=== PATIENT | male | born 1970 | race Caucasian/White ===

== ENCOUNTER 2017-07-10 16:42 | Emergency (ER) | payer OTHER ==
[2017-07-10] MEDS ORDERED: ORPHENADRINE 30 MG/ML 2 ML VIAL IM STA (17:24)
[2017-07-10] MEDS ORDERED: LORazepam 1 MG TAB PO STA (17:24)
[2017-07-10] MEDS ORDERED: KETOROLAC 60 MG/2 ML VIAL IM STA (17:24)
--- NOTE | 2017-07-10 17:27 | ED ---
Back Pain HPI - General Chief Complaint: Back Pain/Injury Stated Complaint: Back Pain Time Seen by Provider: 07/10/17 17:07 Source: patient, EMS, RN notes reviewed, old records reviewed Limitations: no limitations - History of Present Illness Initial Comments: This Patient is a 46-year-old male chief complaint of mid to lower back pain onset after he twisted. He reports he has a history of chronic back issues after a weightlifting injury many years ago. He reports that the twisting motion he did today reaggravated his back pain. Patient states that he has not taken anything for pain. He did arrive here via EMS. They were unable to establish an IV line due to poor vascular access. Patient reports no saddle anesthesias. Reports the pain radiates down both legs. He states that he has had no dysuria or hematuria prior to this. He denies any abdominal pain. He is concerned because it feels like his muscles are spasming. - Related Data Home Medications Medication Instructions Recorded Confirmed Aspirin/Acetaminophen/Caffeine 2 tab PO Q6H PRN 07/10/17 07/10/17 [Excedrin Extra Strength Caplet] QUEtiapine [SEROquel] 100 mg PO BID 07/10/17 07/10/17 Previous Rx's Medication Instructions Recorded Acetaminophen with Codeine 1 tab PO Q6H PRN 3 Days #12 tab 07/10/17 [Tylenol w/codeine #3] Cyclobenzaprine [Flexeril] 10 mg PO TID #20 tab 07/10/17 Ibuprofen [Motrin] 600 mg PO Q6HR PRN #20 tab 07/10/17 Allergies Allergy/AdvReac Type Severity Reaction Status Date / Time No Known Allergies Allergy Verified 07/10/17 17:30 Review of Systems ROS Statement: Those systems with pertinent positive or pertinent negative responses have been documented in the HPI. ROS Other: All systems not noted in ROS Statement are negative. Past Medical History Past Medical History: COPD Additional Past Medical History / Comment(s): facial reconstruction chronic back pain History of Any Multi-Drug Resistant Organisms: MRSA Date of last positivie culture/infection: 2013 MDRO Source:: knee Past Surgical History: Orthopedic Surgery Additional Past Surgical History / Comment(s): facial reconstruction; right knee Past Anesthesia/Blood Transfusion Reactions: No Reported Reaction Past Psychological History: Anxiety, Bipolar Smoking Status: Current every day smoker Past Alcohol Use History: None Reported Past Drug Use History: Cocaine, Heroin, Marijuana, Opiates, Prescription Drug Abuse General Exam - General Exam Comments Initial Comments: 46-year-old male. Alert and oriented. Patient is writhing around the exam table. Limitations: no limitations General appearance: alert, in no apparent distress Head exam: Present: atraumatic, normocephalic, normal inspection Eye exam: Present: normal appearance, PERRL, EOMI. Absent: scleral icterus, conjunctival injection, periorbital swelling ENT exam: Present: normal exam, mucous membranes moist Neck exam: Present: normal inspection. Absent: tenderness, meningismus, lymphadenopathy Respiratory exam: Present: normal lung sounds bilaterally. Absent: respiratory distress, wheezes, rales, rhonchi, stridor Cardiovascular Exam: Present: regular rate, normal rhythm, normal heart sounds. Absent: systolic murmur, diastolic murmur, rubs, gallop, clicks GI/Abdominal exam: Present: soft, normal bowel sounds. Absent: distended, tenderness, guarding, rebound, rigid Extremities exam: Present: normal inspection, full ROM, normal capillary refill. Absent: tenderness, pedal edema, joint swelling, calf tenderness Back exam: Present: normal inspection, tenderness, paraspinal tenderness, vertebral tenderness (Lumbar and lower thoracic vertebral tenderness.), other ( Lumbar paraspinal tenderness.) Neurological exam: Present: alert, oriented X3, CN II-XII intact Psychiatric exam: Present: normal affect, normal mood Skin exam: Present: warm, dry, intact, normal color. Absent: rash Course Vital Signs 07/10/17 16:53 Temperature 97.9 F Pulse Rate 88 Respiratory 16 Rate Blood Pressure 117/83 O2 Sat by Pulse 98 Oximetry Medical Decision Making - Medical Decision Making 46-year-old male complaining of back pain after twisting. Complains of spasms. Did complain at one point in his rectum to examine. It is difficult to establish IV. He was given IM injections and had some relief. X-rays were refused at that time. I did complete a CT on pelvis without contrast CT did have some blood in his urine. Negative for any kidney stones. There is evidence of degenerative disc disease in the back. We'll discharge the Patient with a temperature medication and muscle relaxers. Discussed appropriate follow -up. - Lab Data Lab Results 07/10/17 Range/Units 20:00 Urine Color Yellow Urine Appearance Cloudy (Clear) Urine pH 6.0 (5.0-8.0) Ur Specific [place] 1.020 (1.001-1.035) Urine Protein 1+ H (Negative) Urine Glucose (UA) Negative (Negative) Urine Ketones Negative (Negative) Urine Blood Small H (Negative) Urine Nitrite Negative (Negative) Urine Bilirubin Negative (Negative) Urine Urobilinogen <2.0 (<2.0) mg/dL Ur Leukocyte Esterase Negative (Negative) Urine RBC 16 H (0-5) /hpf Urine WBC 3 (0-5) /hpf Ur Squamous Epith Cells 5 H (0-4) /hpf Urine Bacteria Rare H (None) /hpf Hyaline Casts 27 H (0-2) /lpf Urine Mucus Many H (None) /hpf Urine Sperm Occasional H (None) /hpf Urine Opiates Screen Detected H (NotDetected) Ur Oxycodone Screen Not Detected (NotDetected) Urine Methadone Screen Not Detected (NotDetected) Ur Propoxyphene Screen Not Detected (NotDetected) Ur Barbiturates Screen Not Detected (NotDetected) U Tricyclic Antidepress Not Detected (NotDetected) Ur Phencyclidine Scrn Not Detected (NotDetected) Ur Amphetamines Screen Detected H (NotDetected) U Methamphetamines Scrn Detected H (NotDetected) U Benzodiazepines Scrn Not Detected (NotDetected) Urine Cocaine Screen Not Detected (NotDetected) U Marijuana (THC) Screen Not Detected (NotDetected) - Radiology Data Radiology results: report reviewed CT Pelvis without Contrast Negative for Any Acute Process. No focal skeletal findings and the mid lower lumbar spine and prior studies. Specifically her tinnitus narrowing at L3-L4 L4-L5. Hyper sclerosis at L4-L5 vertebral bodies. Changes are similar to prior study. No other muscle skeletal findings. Disposition Clinical Impression: Hematuria, Back pain, DDD (degenerative disc disease) Disposition: HOME SELF-CARE Condition: Good Instructions: Acute Low Back Pain (ED) Additional Instructions: Patient has follow-up with primary care provider. Return to emergency department if any alarming signs or symptoms occur. Prescriptions: Acetaminophen with Codeine [Tylenol w/codeine #3] 1 tab PO Q6H PRN 3 Days #12 tab PRN Reason: Pain Cyclobenzaprine [Flexeril] 10 mg PO TID #20 tab Ibuprofen [Motrin] 600 mg PO Q6HR PRN #20 tab PRN Reason: Pain Is patient prescribed a controlled substance at d/c from ED?: Yes When asked, does pt state using other controlled substances?: No If prescribed controlled substance>3 days was MAPS reviewed?: Prescribed <3 Days If opioid is for acute pain is fill amount 7 days or less?: No If Rx opioid, was Start Talking consent form obtained?: No Referrals: None,Stated [Primary Care Provider] - 1-2 days Tawana Crooks MD [REFERRING] - 1-2 days Time of Disposition: 21:11
[2017-07-10] MEDS ORDERED: HYDROcodone/APAP 5-325MG 1 EACH TAB PO STA (18:26)
--- NOTE | 2017-07-10 20:17 | CT ---
EXAMINATION TYPE: CT ChestAbdPelvis wo con DATE OF EXAM: 07/10/2017 COMPARISON: 09/01/2015 HISTORY: Back pain today. Attention thoracic and lumbar spine. CT DLP: 428.5 mGycm. Automated Exposure Control for Dose Reduction was Utilized. TECHNIQUE: CT scan of the thorax, abdomen and pelvis is performed without IV contrast. FINDINGS: LUNGS: The lungs are grossly clear, there is no concerning parenchymal mass or nodule identified. T here is no pleural effusion or pneumothorax seen. The tracheobronchial tree is patent. MEDIASTINUM: There are no greater than 1 cm hilar or mediastinal lymph nodes. No pericardial effusi on is seen. OTHER: No additional significant abnormality is seen. LIVER/GB: No significant abnormality is appreciated. PANCREAS: No significant abnormality is seen. SPLEEN: No significant abnormality is seen. ADRENALS: No significant abnormality is seen. KIDNEYS: No significant abnormality is seen. BOWEL: No significant abnormality is seen. GENITAL ORGANS: No gross abnormality seen. LYMPH NODES: No greater than 1cm abdominal or pelvic lymph nodes are appreciated. OSSEOUS STRUCTURES: There is no fracture or malalignment. No focal skeletal findings, other than the mid/lower lumbar spine seen on the prior studies. Specifically, there is degenerative disc space narr owing at L3-4 and L4-5 to a prominent degree with hypersclerosis of the L4 and L5 vertebral bodies on either side of the intervertebral disc, but these changes are similar to the prior study. There are no other musculoskeletal findings. OTHER: No significant additional abnormality is seen. IMPRESSION: NO ACUTE PROCESS, CT HEAD WITHOUT CONTRAST.
[2017-07-10 20:27] LABS: Appearance,Urine Cloudy (Clear); Bacteria,Urine Rare /hpf; Bilirubin,Urine Negative (Negative); Blood,Urine Small (Negative); Color,Urine Yellow; Glucose,Urine (UA) Negative (Negative); Hyaline Casts,Urine 27 /lpf (0-2); Ketones,Urine Negative (Negative); Leukocyte Esterase,Urine Negative (Negative); Mucus,Urine Many /hpf; Nitrite,Urine Negative (Negative); Protein,Urine 1+ (Negative); RBC,Urine 16 /hpf (0-5); Sperm,Urine Occasional /hpf; Squamous Epithelial Cell,Urine 5 /hpf (0-4); Urobilinogen,Urine <2.0 mg/dL (<2.0); WBC,Urine 3 /hpf (0-5)
[2017-07-10 20:47] LABS: Amphetamine Screen,Urine Detected (NotDetected); Barbiturate Screen,Urine Not Detected (NotDetected); Benzodiazepines Screen,Urine Not Detected (NotDetected); Cocaine Screen,Urine Not Detected (NotDetected); Methadone Screen, Urine Not Detected (NotDetected); Opiate Screen,Urine Detected (NotDetected); Oxycodone Screen, Urine Not Detected (NotDetected); Phencyclidine Screen,Urine Not Detected (NotDetected); Tricyclic Antidepressant,Urine Not Detected (NotDetected); Urn Cannabinoid Scrn Not Detected (NotDetected)
[2017-07-10 22:21] VITALS: BP 155/56; PULSE 71; RESP 20; TEMP 98.9
== END 2017-07-10 22:00 | disposition home or self-care (01) ==
LOC: EC 16:42
DX: M51.36 Other intervertebral disc degeneration, lumbar region (principal); R31.9 Hematuria, unspecified; F41.9 Anxiety disorder, unspecified; F31.9 Bipolar disorder, unspecified; F17.200 Nicotine dependence, unspecified, uncomplicated; Z86.14 Personal history of Methicillin resistant Staphylococcus aureus infection; Z79.899 Other long term (current) drug therapy; X50.1XXA Overexertion from prolonged static or awkward postures, initial encounter; Y92.009 Unspecified place in unspecified non-institutional (private) residence as the place of occurrence of the external cause; Y93.89 Activity, other specified
CPT/HCPCS: 81001; 80306; 71250; 74176; 99285; 96372 ×2; J2360; J1885

== ENCOUNTER 2017-07-19 02:54 | Inpatient (IN) | payer OTHER ==
[2017-07-19] MEDS ORDERED: LIDOCAINE URO-JET JELLY 2% 5 ML KIT URETHRAL ONE (03:24)
[2017-07-19 03:38] LABS: ALT 36 U/L (21-72); AST 44 U/L (17-59); Alkaline Phosphatase 453 U/L (38-126); Amylase 36 U/L (30-110); Anion Gap 17 mmol/L; Blood Urea Nitrogen 21 mg/dL (9-20); Calcium 8.1 mg/dL (8.4-10.2); Carbon Dioxide 21 mmol/L (22-30); Chloride 94 mmol/L (98-107); Glucose 118 mg/dL (74-99); Lipase 14 U/L (23-300); Potassium 4.2 mmol/L (3.5-5.1); Sodium 132 mmol/L (137-145); Total Bilirubin 1.9 mg/dL (0.2-1.3); Total Protein 6.5 g/dL (6.3-8.2)
[2017-07-19 03:49] LABS: HCT 35.7 % (39.0-53.0); HGB 11.7 gm/dL (13.0-17.5); MCH 27.3 pg (25.0-35.0); MCHC 32.9 g/dL (31.0-37.0); Mean Platelet Volume 7.9; Platelet Count 357 k/uL (150-450); RDW 15.1 % (11.5-15.5)
[2017-07-19 04:12] LABS: Appearance,Urine Cloudy (Clear); Bacteria,Urine Few /hpf; Bilirubin,Urine Negative (Negative); Blood,Urine Small (Negative); Color,Urine Yellow; Glucose,Urine (UA) Negative (Negative); Ketones,Urine Negative (Negative); Leukocyte Esterase,Urine Large (Negative); Mucus,Urine Rare /hpf; Nitrite,Urine Positive (Negative); PH, Urine 7.5 (5.0-8.0); Protein,Urine 1+ (Negative); RBC,Urine 4 /hpf (0-5); Specific Gravity,Urine 1.009 (1.001-1.035); WBC,Urine >182 /hpf (0-5)
[2017-07-19] MEDS ORDERED: PIPERACILLIN-TAZOBACTAM 3.375 GM in DEXTROSE/WATER 1 50ML.BAG IVPB STA (04:15)
[2017-07-19] MEDS ORDERED: LEVOFLOXACIN 750MG-D5W PMX 750 MG in DEXTROSE/WATER 1 150ML.BAG IVPB STA (04:15)
[2017-07-19] MEDS ORDERED: SODIUM CHLORIDE 0.9% 3,000 ML IV ONE (04:15)
[2017-07-19] MEDS ORDERED: VANCOMYCIN IV PER PHARMACY 1 EACH MISC MISCELLANE PRN (04:15)
[2017-07-19] MEDS ORDERED: CYCLOBENZAPRINE 10 MG TAB PO STA (04:19)
[2017-07-19] MEDS ORDERED: VANCOMYCIN 1,500 MG in SODIUM CHLORIDE 0.9% 250 ML IVPB STA (04:19)
[2017-07-19 04:40] LABS: WBC 31.8 k/uL (3.8-10.6)
[2017-07-19 04:51] LABS: Myelocytes # (M) 0.32 k/uL (0); Myelocytes % 1 %; Nucleated Red Blood Cells 0 /100 WBC (0-0); Total Cells Counted 200
[2017-07-19 04:52] LABS: Anisocytosis (M) Present; Polychromasia Present
[2017-07-19 04:53] LABS: Large Platelets Present
[2017-07-19 04:55] LABS: Toxic Vacuolation Present
[2017-07-19 04:57] LABS: Blast Cells # (M) 0.32 k/uL (0)
[2017-07-19] MEDS ORDERED: LORazepam 2 MG/ML INJ IV STA (04:57)
[2017-07-19] MEDS ORDERED: MORPHINE SULFATE 2 MG/ML SYRINGE IV STA ×3 (04:57→06:12)
[2017-07-19 05:51] LABS: Amphetamine Screen,Urine Not Detected (NotDetected); Barbiturate Screen,Urine Not Detected (NotDetected); Benzodiazepines Screen,Urine Not Detected (NotDetected); Cocaine Screen,Urine Not Detected (NotDetected); Methadone Screen, Urine Not Detected (NotDetected); Opiate Screen,Urine Not Detected (NotDetected); Oxycodone Screen, Urine Not Detected (NotDetected); Phencyclidine Screen,Urine Not Detected (NotDetected); Tricyclic Antidepressant,Urine Detected (NotDetected); Urn Cannabinoid Scrn Not Detected (NotDetected)
--- NOTE | 2017-07-19 06:09 | ED ---
Abdominal Pain HPI - General Chief Complaint: Abdominal Pain Stated Complaint: urine retention Time Seen by Provider: 07/19/17 02:58 Source: patient Mode of arrival: EMS Limitations: no limitations - History of Present Illness Initial Comments: This patient is a 46-year-old man who presents to be evaluated for suprapubic pain and a feeling that he has to urinate but he is not able pass urine. Patient states that the last time he was able urinate was a bit over 9 hours ago. Shortly after that he started feeling the discomfort and now pain in the suprapubic area. He denies history of previous urinary retention. He does not have any known prostate disease. Patient states that the last time he was able urinate prior to this beginning, he thought that he was seeing a bit of blood there. MD Complaint: abdominal pain Onset/Timin -: hour(s) Location: suprapubic Radiation: none Migration to: no migration Severity: severe Quality: aching, fullness Consistency: constant Improves With: nothing Worsens With: nothing Associated Symptoms: nausea - Related Data Home Medications Medication Instructions Recorded Confirmed Aspirin/Acetaminophen/Caffeine 2 tab PO Q6H PRN 07/10/17 07/19/17 [Excedrin Extra Strength Caplet] QUEtiapine [SEROquel] 100 mg PO BID 07/10/17 07/19/17 Previous Rx's Medication Instructions Recorded Acetaminophen with Codeine 1 tab PO Q6H PRN 3 Days #12 tab 07/10/17 [Tylenol w/codeine #3] Cyclobenzaprine [Flexeril] 10 mg PO TID #20 tab 07/10/17 Ibuprofen [Motrin] 600 mg PO Q6HR PRN #20 tab 07/10/17 Allergies Allergy/AdvReac Type Severity Reaction Status Date / Time No Known Allergies Allergy Verified 07/10/17 17:30 Review of Systems ROS Statement: Those systems with pertinent positive or pertinent negative responses have been documented in the HPI. ROS Other: All systems not noted in ROS Statement are negative. Constitutional: Reports: fever Respiratory: Denies: cough, dyspnea Cardiovascular: Reports: palpitations. Denies: chest pain, edema Gastrointestinal: Reports: as per HPI, abdominal pain, nausea. Denies: vomiting , diarrhea, constipation Genitourinary: Reports: hematuria, other (Urinary retention) Musculoskeletal: Reports: back pain Skin: Reports: rash Neurological: Denies: headache, weakness, numbness Psychiatric: Reports: anxiety Past Medical History Past Medical History: COPD Additional Past Medical History / Comment(s): facial reconstruction chronic back pain History of Any Multi-Drug Resistant Organisms: MRSA Date of last positivie culture/infection: 2013 MDRO Source:: knee Past Surgical History: Orthopedic Surgery Additional Past Surgical History / Comment(s): facial reconstruction; right knee Past Anesthesia/Blood Transfusion Reactions: No Reported Reaction Past Psychological History: Anxiety, Bipolar Smoking Status: Current every day smoker Past Alcohol Use History: None Reported Past Drug Use History: Cocaine, Heroin, Marijuana, Opiates, Prescription Drug Abuse General Exam Limitations: no limitations General appearance: alert, in distress Head exam: Present: atraumatic, normocephalic Eye exam: Present: normal appearance. Absent: scleral icterus, conjunctival injection ENT exam: Present: mucous membranes dry Neck exam: Present: normal inspection, full ROM Respiratory exam: Present: normal lung sounds bilaterally. Absent: respiratory distress, wheezes, rales, rhonchi, stridor Cardiovascular Exam: Present: normal rhythm, tachycardia, normal heart sounds. Absent: systolic murmur, diastolic murmur, rubs, gallop GI/Abdominal exam: Present: soft, tenderness, guarding, mass, other (The patient has tenderness and guarding over the suprapubic area as well as some fullness consistent with urinary retention.). Absent: distended, rebound, rigid , normal bowel sounds Extremities exam: Present: normal inspection, normal capillary refill. Absent: pedal edema, calf tenderness Neurological exam: Present: alert, oriented X3 Skin exam: Present: warm, dry, intact, erythema (There is some erythema to the left antecubital fossa which is concerning for cellulitis.). Absent: rash Course Vital Signs 07/19/17 02:55 Temperature 100.6 F H Pulse Rate 115 H Respiratory 20 Rate Blood Pressure 136/74 Medical Decision Making - Lab Data Result diagrams: 07/19/17 03:04 07/19/17 03:04 Lab Results 07/19/17 07/19/17 07/19/17 Range/Units 03:04 03:04 03:04 WBC 31.8 H* (3.8-10.6) k/uL RBC 4.30 (4.30-5.90) m/uL Hgb 11.7 L (13.0-17.5) gm/dL Hct 35.7 L (39.0-53.0) % MCV 83.0 (80.0-100.0) fL MCH 27.3 (25.0-35.0) pg MCHC 32.9 (31.0-37.0) g/dL RDW 15.1 (11.5-15.5) % Plt Count 357 (150-450) k/uL Sodium 132 L (137-145) mmol/L Potassium 4.2 (3.5-5.1) mmol/L Chloride 94 L (98-107) mmol/L Carbon Dioxide 21 L (22-30) mmol/L Anion Gap 17 mmol/L BUN 21 H (9-20) mg/dL Creatinine 1.06 (0.66-1.25) mg/dL Est GFR (CKD-EPI)AfAm >90 (>60 ml/min/1.73 sqM) Est GFR (CKD-EPI)NonAf 86 (>60 ml/min/1.73 sqM) Glucose 118 H (74-99) mg/dL Plasma Lactic Acid Brian 2.2 H* (0.7-2.0) mmol/L Calcium 8.1 L (8.4-10.2) mg/dL Total Bilirubin 1.9 H (0.2-1.3) mg/dL AST 44 (17-59) U/L ALT 36 (21-72) U/L Alkaline Phosphatase 453 H (38-126) U/L Total Protein 6.5 (6.3-8.2) g/dL Albumin 3.0 L (3.5-5.0) g/dL Amylase 36 (30-110) U/L Lipase 14 L (23-300) U/L Urine Color Urine Appearance (Clear) Urine pH (5.0-8.0) Ur Specific [place] (1.001-1.035) Urine Protein (Negative) Urine Glucose (UA) (Negative) Urine Ketones (Negative) Urine Blood (Negative) Urine Nitrite (Negative) Urine Bilirubin (Negative) Urine Urobilinogen (<2.0) mg/dL Ur Leukocyte Esterase (Negative) Urine RBC (0-5) /hpf Urine WBC (0-5) /hpf Urine WBC Clumps (None) /hpf Urine Bacteria (None) /hpf Urine Mucus (None) /hpf Urine Opiates Screen (NotDetected) Ur Oxycodone Screen (NotDetected) Urine Methadone Screen (NotDetected) Ur Propoxyphene Screen (NotDetected) Ur Barbiturates Screen (NotDetected) U Tricyclic Antidepress (NotDetected) Ur Phencyclidine Scrn (NotDetected) Ur Amphetamines Screen (NotDetected) U Methamphetamines Scrn (NotDetected) U Benzodiazepines Scrn (NotDetected) Urine Cocaine Screen (NotDetected) U Marijuana (THC) Screen (NotDetected) 07/19/17 07/19/17 Range/Units 03:37 03:37 WBC (3.8-10.6) k/uL RBC (4.30-5.90) m/uL Hgb (13.0-17.5) gm/dL Hct (39.0-53.0) % MCV (80.0-100.0) fL MCH (25.0-35.0) pg MCHC (31.0-37.0) g/dL RDW (11.5-15.5) % Plt Count (150-450) k/uL Sodium (137-145) mmol/L Potassium (3.5-5.1) mmol/L Chloride (98-107) mmol/L Carbon Dioxide (22-30) mmol/L Anion Gap mmol/L BUN (9-20) mg/dL Creatinine (0.66-1.25) mg/dL Est GFR (CKD-EPI)AfAm (>60 ml/min/1.73 sqM) Est GFR (CKD-EPI)NonAf (>60 ml/min/1.73 sqM) Glucose (74-99) mg/dL Plasma Lactic Acid Brian (0.7-2.0) mmol/L Calcium (8.4-10.2) mg/dL Total Bilirubin (0.2-1.3) mg/dL AST (17-59) U/L ALT (21-72) U/L Alkaline Phosphatase (38-126) U/L Total Protein (6.3-8.2) g/dL Albumin (3.5-5.0) g/dL Amylase (30-110) U/L Lipase (23-300) U/L Urine Color Yellow Urine Appearance Cloudy (Clear) Urine pH 7.5 (5.0-8.0) Ur Specific [place] 1.009 (1.001-1.035) Urine Protein 1+ H (Negative) Urine Glucose (UA) Negative (Negative) Urine Ketones Negative (Negative) Urine Blood Small H (Negative) Urine Nitrite Positive (Negative) Urine Bilirubin Negative (Negative) Urine Urobilinogen 4.0 (<2.0) mg/dL Ur Leukocyte Esterase Large H (Negative) Urine RBC 4 (0-5) /hpf Urine WBC >182 H (0-5) /hpf Urine WBC Clumps Many H (None) /hpf Urine Bacteria Few H (None) /hpf Urine Mucus Rare H (None) /hpf Urine Opiates Screen Not Detected (NotDetected) Ur Oxycodone Screen Not Detected (NotDetected) Urine Methadone Screen Not Detected (NotDetected) Ur Propoxyphene Screen Not Detected (NotDetected) Ur Barbiturates Screen Not Detected (NotDetected) U Tricyclic Antidepress Detected H (NotDetected) Ur Phencyclidine Scrn Not Detected (NotDetected) Ur Amphetamines Screen Not Detected (NotDetected) U Methamphetamines Scrn Not Detected (NotDetected) U Benzodiazepines Scrn Not Detected (NotDetected) Urine Cocaine Screen Not Detected (NotDetected) U Marijuana (THC) Screen Not Detected (NotDetected) - EKG Data -: EKG Interpreted by [facility] EKG shows normal: sinus rhythm, axis (Normal), intervals (Normal), QRS complexes (Normal), ST-T waves (Normal) Rate: tachycardia (Rate approximately 108 bpm) Disposition Clinical Impression: Acute urinary retention, Urinary tract infection, Sepsis, Leukocytosis, Cellulitis Disposition: ADMITTED IP TO THIS HOSP Condition: Serious Is patient prescribed a controlled substance at d/c from ED?: No Referrals: None,Stated [Primary Care Provider] - 1-2 days
--- NOTE | 2017-07-19 06:44 | P.HPIM ---
History of Present Illness H&P Date: 07/19/17 Chief Complaint: lower back pain, urinary retention The patient is a 46-year-old male with a past medical history of borderline personality disorder schizoaffective disorder, IV drug use who presents to the ER with chief complaint of severe lower back pain reporting that he feels like his spasming all over. The patient has been unable to urinate and has had dysuria and hematuria in the last 24 hours. The patient reports to being febrile at home over the last 2 days with a reported temperature, 102.1. He is also complaining of generalized 6 out of 10 abdominal pain radiating to his back with nausea and 2 episodes of vomiting this earlier today. Apparently the patient was seen here approximately 9 days ago where he presented with similar symptoms, at that time he had a CT of the chest abdomen pelvis that showed no acute findings, he was then started on Flexeril and Tylenol threes and sent home. On presentation here was apparently given morphine for his pain which helped. The patient also reports that he's followed at home and hit his shoulder also reports that his mom stepped on his left ankle. In the ED had a comprehensive workup, remarkable for pronounced leukocytosis of 31.8, hyponatremia at 132, elevated plasma lactic acid at 2.2, total bilirubin of 1.9, urinalysis suggestive of a UTI. He was noted to be tachycardic and febrile in the ER and was started on empiric IV antibiotics and given IV fluids per sepsis protocol. He was recommended for admission for sepsis. Review of Systems All other 12 point review of systems negative except per HPI Past Medical History Past Medical History: COPD Additional Past Medical History / Comment(s): facial reconstruction chronic back pain History of Any Multi-Drug Resistant Organisms: MRSA Date of last positivie culture/infection: 2013 MDRO Source:: knee Past Surgical History: Orthopedic Surgery Additional Past Surgical History / Comment(s): facial reconstruction; right knee Past Anesthesia/Blood Transfusion Reactions: No Reported Reaction Past Psychological History: Anxiety, Bipolar Smoking Status: Current every day smoker Past Alcohol Use History: None Reported Past Drug Use History: Cocaine, Heroin, Marijuana, Opiates, Prescription Drug Abuse Medications and Allergies Home Medications Medication Instructions Recorded Confirmed Type Acetaminophen with Codeine 1 tab PO Q6H PRN 3 Days #12 tab 07/10/17 07/19/17 Rx [Tylenol w/codeine #3] Aspirin/Acetaminophen/Caffeine 2 tab PO Q6H PRN 07/10/17 07/19/17 History [Excedrin Extra Strength Caplet] Cyclobenzaprine [Flexeril] 10 mg PO TID #20 tab 07/10/17 07/19/17 Rx Ibuprofen [Motrin] 600 mg PO Q6HR PRN #20 tab 07/10/17 07/19/17 Rx QUEtiapine [SEROquel] 100 mg PO BID 07/10/17 07/19/17 History Allergies Allergy/AdvReac Type Severity Reaction Status Date / Time No Known Allergies Allergy Verified 07/10/17 17:30 Physical Exam Vitals: Vital Signs Temp Pulse Resp BP 07/19/17 02:55 100.6 F H 115 H 20 136/74 Intake and Output 07/18/17 07/18/17 07/19/17 14:59 22:59 06:59 Output Total 750 Balance -750 Output: Urine 750 Uretheral (Pederson) 750 Other: Voiding Method Toilet Weight 83.915 kg Constitutional: No acute distress, anxious, unkempt Eyes: Anicteric sclerae, moist conjunctiva, no lid-lag, PERRLA ENMT: NC/AT,Oropharynx clear, no erythema, exudates Neck:Supple, FROM, no masses, or JVD, No carotid bruits; No thyromegaly Lungs: Clear to auscultation, Clear to percussion, Normal respiratory effort, no accessory muscle use Cardiovascular: Heart regular in rate and rhythm, No murmurs, gallops, or rubs no peripheral edema Abdominal: Soft Nontender, nom distended, no guarding, no rebound or rigidity, Normoactive bowel sounds No hepatomegaly, No splenomegaly, No palpable mass No abdominal wall hernia noted Skin: Normal temperature, tone, texture, turgor, No induration No subcutaneous nodules, No rash, lesions, No ulcers Extremities:No digital cyanosis No clubbing, Pedal pulses intact and symmetrical Radial pulses intact and symmetrical Normal gait and station, No calf tenderness, swollen right ankle Psychiatric: Alert and oriented to person, place and time, Appropriate affect Intact judgement Neuro: Muscles Strength 5/5 in all 4 extremities, Sensation to light touch grossly present throughout, Cranial nerves II-XII grossly intact. No focal sensory deficits Results CBC & Chem 7: 07/19/17 03:04 07/19/17 03:04 Labs: Abnormal Lab Results - Last 24 Hours (Table) 07/19/17 07/19/17 07/19/17 Range/Units 03:04 03:04 03:04 WBC 31.8 H* (3.8-10.6) k/uL Hgb 11.7 L (13.0-17.5) gm/dL Hct 35.7 L (39.0-53.0) % Sodium 132 L (137-145) mmol/L Chloride 94 L (98-107) mmol/L Carbon Dioxide 21 L (22-30) mmol/L BUN 21 H (9-20) mg/dL Glucose 118 H (74-99) mg/dL Plasma Lactic Acid Brian 2.2 H* (0.7-2.0) mmol/L Calcium 8.1 L (8.4-10.2) mg/dL Total Bilirubin 1.9 H (0.2-1.3) mg/dL Alkaline Phosphatase 453 H (38-126) U/L Albumin 3.0 L (3.5-5.0) g/dL Lipase 14 L (23-300) U/L Urine Protein (Negative) Urine Blood (Negative) Ur Leukocyte Esterase (Negative) Urine WBC (0-5) /hpf Urine WBC Clumps (None) /hpf Urine Bacteria (None) /hpf Urine Mucus (None) /hpf U Tricyclic Antidepress (NotDetected) 07/19/17 07/19/17 Range/Units 03:37 03:37 WBC (3.8-10.6) k/uL Hgb (13.0-17.5) gm/dL Hct (39.0-53.0) % Sodium (137-145) mmol/L Chloride (98-107) mmol/L Carbon Dioxide (22-30) mmol/L BUN (9-20) mg/dL Glucose (74-99) mg/dL Plasma Lactic Acid Brian (0.7-2.0) mmol/L Calcium (8.4-10.2) mg/dL Total Bilirubin (0.2-1.3) mg/dL Alkaline Phosphatase (38-126) U/L Albumin (3.5-5.0) g/dL Lipase (23-300) U/L Urine Protein 1+ H (Negative) Urine Blood Small H (Negative) Ur Leukocyte Esterase Large H (Negative) Urine WBC >182 H (0-5) /hpf Urine WBC Clumps Many H (None) /hpf Urine Bacteria Few H (None) /hpf Urine Mucus Rare H (None) /hpf U Tricyclic Antidepress Detected H (NotDetected) Assessment and Plan (1) Sepsis Current Visit: Yes Status: Acute Code(s): A41.9 - SEPSIS, UNSPECIFIED ORGANISM SNOMED Code(s): 81781104 (2) Urinary tract infection Current Visit: Yes Status: Acute Code(s): N39.0 - URINARY TRACT INFECTION, SITE NOT SPECIFIED SNOMED Code(s): 05302017 (3) Hyponatremia Current Visit: Yes Status: Acute Code(s): E87.1 - HYPO-OSMOLALITY AND HYPONATREMIA SNOMED Code(s): 26227994 (4) Methamphetamine abuse Current Visit: Yes Status: Acute Code(s): F15.10 - OTHER STIMULANT ABUSE, UNCOMPLICATED SNOMED Code(s): 123335774 (5) Acute urinary retention Current Visit: Yes Status: Acute Code(s): R33.8 - OTHER RETENTION OF URINE SNOMED Code(s): 941388380 Plan: The patient is admitted anticipated greater than 2 midnight stay with severe sepsis likely secondary to acute urinary tract infection superimposed on history of methamphetamine drug use, the patient is continued on empiric IV antibiotics with vancomycin and Zosyn and Levaquin, blood and urine cultures have been ordered, sepsis protocol for fluids. Given patient's history of MRSA and IV drug use and now complaining of back pain CT of his lower back is been ordered to rule out any abscess. Patient also has some overlying erythema of his left shoulder and left ankle this could be from secondary trauma from his fall or his mom stepping on his ankle however there is concern given his history for possible septic arthritis. Continue morphine for pain and Ativan when necessary. We'll continue to follow his clinical course. Continue SCDs for DVT prophylaxis
[2017-07-19] MEDS ORDERED: ACETAMINOPHEN TAB 325 MG TAB PO STA (06:46)
--- NOTE | 2017-07-19 06:58 | XR ---
EXAMINATION TYPE: XR chest 1V portable DATE OF EXAM: 07/19/2017 COMPARISON: 08/18/2015 HISTORY: Fever TECHNIQUE: Single frontal view of the chest is obtained. FINDINGS: Heart and mediastinum appear normal. There is possible mild infiltrate in the right lower lobe. The other lung paris are clear. There are chest leads. Costophrenic angles are clear. Bony tho rax is intact. IMPRESSION: Possible mild right lower lobe new infiltrate compared to old exam.
[2017-07-19] MEDS ORDERED: ONDANSETRON 4 MG/2 ML VIAL IVP PRN (07:08)
--- NOTE | 2017-07-19 07:27 | CT ---
EXAMINATION TYPE: CT abdomen pelvis w con DATE OF EXAM: 07/19/2017 COMPARISON: 07/10/2017 HISTORY: Urine retention CT DLP: 1898 mGycm Automated exposure control for dose reduction was used. TECHNIQUE: Helical acquisition of images was performed from the lung bases through the pelvis. CONTRAST: Performed without Oral Contrast and with IV Contrast, patient injected with 100 mL of Isovue 300. FINDINGS: There is subsegmental atelectasis at the posterior lung bases. There is no pleural effusion. Spleen i s enlarged and measures 15 cm. Liver is somewhat enlarged. The bile ducts are not dilated. There is n o pancreatic mass. Gallbladder appears normal. There is no adrenal mass. Kidneys show no hydronephros is. There is no retroperitoneal adenopathy. There is no ascites. I see no intestinal wall thickening. There are no dilated loops. There is fecal material down to the rectum. There is Pederson catheter in t he urinary bladder. Bladder is almost empty. There are spondylotic changes in the lumbar spine. There is narrowing at L4-5 disc space. IMPRESSION: Hepatosplenomegaly. No dilated ducts. No evidence of renal mass or obstruction. No sign of acute abdo men and pelvis. No adverse change compared to old exam.
[2017-07-19 08:14] LABS: Band Neutrophils % 2 %; Lymphocytes # (M) 3.18 k/uL (1.0-4.8); Metamyelocytes # (M) 0.64 k/uL (0); Metamyelocytes % 2 %; Monocytes # (M) 0.95 k/uL (0-1.0); Neutrophils % (M) 83 %
[2017-07-19] MEDS: SODIUM CHLORIDE 0.9% 500 ML IV SCH ×3 (10:48→13:17)
[2017-07-19] MEDS: MORPHINE SULFATE 2 MG/ML SYRINGE IVP PRN ×2 (13:10→20:37)
[2017-07-19] MEDS: QUEtiapine 100 MG TAB PO SCH ×2 (13:11→21:56)
[2017-07-19] MEDS: NICOTINE 21MG/24HR PATCH TRANSDERM SCH (13:24)
[2017-07-19] MEDS ORDERED: ACETAMINOPHEN TAB 325 MG TAB PO PRN (14:29)
[2017-07-19] MEDS: ACETAMINOPHEN TAB 325 MG TAB PO PRN (14:47)
[2017-07-19] MEDS: VANCOMYCIN 1,500 MG in SODIUM CHLORIDE 0.9% 250 ML IVPB SCH (14:48)
--- NOTE | 2017-07-19 15:05 | P.PN ---
Progress Note - Text Progress Note Date: 07/19/17 Patient seen and examined by me Stable MRI of the lumbar and thoracic spine has been ordered but the patient states and insists that he did have wires of his brain in a hospital in [place] that hospital was called and on have any records of the patient the patient still insists that he did have that MRI of the brain was held Computed tomography scan of the lumbar and thoracic thoracic spine has been ordered will not be able to do it with contrast since the patient did have a computed tomography scan of abdomen and pelvis today with contrast Please refer to the H&P dictated by the admitting physician this morning
--- NOTE | 2017-07-19 17:02 | P.GSCN ---
History of Present Illness Consult date: 07/19/17 History of present illness: This is a 46-year-old gentleman in the hospital with a febrile urinary tract infection, acute prostatitis. He is a drug user and injects cocaine. He came in with fever and chills difficulty urinating for the last 48 hours. He is found to be in urine retention with 750 mL immediate urine return with a Pederson catheter. His urine is infected. He states he may have an infection years ago. Prior to this most recent time he has not had problems urinating. He states that he last injected himself with cocaine 8-9 days ago however he has swollen joints and red joints worrisome for septic arthritis. Eyes previous urinary tract problems. He denies previous urine retention. He had hematuria recently. He had a computed tomography scan that did not show any evidence of upper tract obstruction. 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 History of Any Multi-Drug Resistant Organisms: None Reported Year Discovered:: 2013 MDRO Source:: knee Past Surgical History: Orthopedic Surgery Additional Past Surgical History / Comment(s): 3 titanium plates, screws and mesh in skull, facial reconstruction; right knee I&D/cartlidge removed. Past Anesthesia/Blood Transfusion Reactions: No Reported Reaction Smoking Status: Current every day smoker - Past Family History Father Family Medical History: Myocardial Infarction (NC) Additional Family Medical History / Comment(s): Father of a NC in his early 50s. Mother Family Medical History: No Reported History Medications and Allergies Home Medications Medication Instructions Recorded Confirmed Type Acetaminophen with Codeine 1 tab PO Q6H PRN 3 Days #12 tab 07/10/17 07/19/17 Rx [Tylenol w/codeine #3] Cyclobenzaprine [Flexeril] 10 mg PO TID #20 tab 07/10/17 07/19/17 Rx Ibuprofen [Motrin] 600 mg PO Q6HR PRN #20 tab 07/10/17 07/19/17 Rx QUEtiapine [SEROquel] 100 mg PO BID 07/10/17 07/19/17 History QUEtiapine [SEROquel] 50 mg PO BID 07/19/17 07/19/17 History cloNIDine HCL [Catapres] 0.1 mg PO HS 07/19/17 07/19/17 History Allergies Allergy/AdvReac Type Severity Reaction Status Date / Time No Known Allergies Allergy Verified 07/19/17 07:54 Surgical - Exam Vital Signs Temp Pulse Resp BP 100.6 F H 115 H 20 136/74 07/19/17 02:55 07/19/17 02:55 07/19/17 02:55 07/19/17 02:55 - General well developed, well nourished, moderate distress - ENT no hearing loss - Neck trachea midline - Respiratory normal expansion, normal respiratory effort - Cardiovascular Rhythm: regular - Abdomen Abdomen: soft, non tender - Genitourinary Indwelling catheter and circumcised phallus. Testes epididymis scrotum unremarkable. - Musculoskeletal The patient has a tender reddened left shoulder. He has a swollen left hand that he states he hit the wall with. He is a less tender right hand. His ankles are swollen. normal posture - Psychiatric oriented to time, oriented to person, oriented to place, speech is normal, memory intact Results - Labs 07/19/17 03:04 07/19/17 03:04 Abnormal Lab Results - Last 24 Hours (Table) 07/19/17 07/19/17 07/19/17 Range/Units 03:04 03:04 03:04 WBC 31.8 H* (3.8-10.6) k/uL Hgb 11.7 L (13.0-17.5) gm/dL Hct 35.7 L (39.0-53.0) % Neutrophils # (Manual) 27.00 H (1.3-7.7) k/uL Metamyelocytes # (Man) 0.64 H (0) k/uL Myelocytes # (Manual) 0.32 H (0) k/uL Blast Cells # (Man) 0.32 H (0) k/uL Sodium 132 L (137-145) mmol/L Chloride 94 L (98-107) mmol/L Carbon Dioxide 21 L (22-30) mmol/L BUN 21 H (9-20) mg/dL Glucose 118 H (74-99) mg/dL Plasma Lactic Acid Brian 2.2 H* (0.7-2.0) mmol/L Calcium 8.1 L (8.4-10.2) mg/dL Total Bilirubin 1.9 H (0.2-1.3) mg/dL Alkaline Phosphatase 453 H (38-126) U/L Albumin 3.0 L (3.5-5.0) g/dL Lipase 14 L (23-300) U/L Urine Protein (Negative) Urine Blood (Negative) Ur Leukocyte Esterase (Negative) Urine WBC (0-5) /hpf Urine WBC Clumps (None) /hpf Urine Bacteria (None) /hpf Urine Mucus (None) /hpf U Tricyclic Antidepress (NotDetected) 07/19/17 07/19/17 Range/Units 03:37 03:37 WBC (3.8-10.6) k/uL Hgb (13.0-17.5) gm/dL Hct (39.0-53.0) % Neutrophils # (Manual) (1.3-7.7) k/uL Metamyelocytes # (Man) (0) k/uL Myelocytes # (Manual) (0) k/uL Blast Cells # (Man) (0) k/uL Sodium (137-145) mmol/L Chloride (98-107) mmol/L Carbon Dioxide (22-30) mmol/L BUN (9-20) mg/dL Glucose (74-99) mg/dL Plasma Lactic Acid Brian (0.7-2.0) mmol/L Calcium (8.4-10.2) mg/dL Total Bilirubin (0.2-1.3) mg/dL Alkaline Phosphatase (38-126) U/L Albumin (3.5-5.0) g/dL Lipase (23-300) U/L Urine Protein 1+ H (Negative) Urine Blood Small H (Negative) Ur Leukocyte Esterase Large H (Negative) Urine WBC >182 H (0-5) /hpf Urine WBC Clumps Many H (None) /hpf Urine Bacteria Few H (None) /hpf Urine Mucus Rare H (None) /hpf U Tricyclic Antidepress Detected H (NotDetected) Microbiology - Last 24 Hours (Table) 07/19/17 03:37 Urine Culture - Preliminary Urine,Catheterized Diabetes panel 07/19/17 Range/Units 03:04 Sodium 132 L (137-145) mmol/L Potassium 4.2 (3.5-5.1) mmol/L Chloride 94 L (98-107) mmol/L Carbon Dioxide 21 L (22-30) mmol/L BUN 21 H (9-20) mg/dL Creatinine 1.06 (0.66-1.25) mg/dL Glucose 118 H (74-99) mg/dL Calcium 8.1 L (8.4-10.2) mg/dL AST 44 (17-59) U/L ALT 36 (21-72) U/L Alkaline Phosphatase 453 H (38-126) U/L Total Protein 6.5 (6.3-8.2) g/dL Albumin 3.0 L (3.5-5.0) g/dL Calcium panel 07/19/17 Range/Units 03:04 Calcium 8.1 L (8.4-10.2) mg/dL Albumin 3.0 L (3.5-5.0) g/dL Pituitary panel 07/19/17 Range/Units 03:04 Sodium 132 L (137-145) mmol/L Potassium 4.2 (3.5-5.1) mmol/L Chloride 94 L (98-107) mmol/L Carbon Dioxide 21 L (22-30) mmol/L BUN 21 H (9-20) mg/dL Creatinine 1.06 (0.66-1.25) mg/dL Glucose 118 H (74-99) mg/dL Calcium 8.1 L (8.4-10.2) mg/dL Adrenal panel 07/19/17 Range/Units 03:04 Sodium 132 L (137-145) mmol/L Potassium 4.2 (3.5-5.1) mmol/L Chloride 94 L (98-107) mmol/L Carbon Dioxide 21 L (22-30) mmol/L BUN 21 H (9-20) mg/dL Creatinine 1.06 (0.66-1.25) mg/dL Glucose 118 H (74-99) mg/dL Calcium 8.1 L (8.4-10.2) mg/dL Total Bilirubin 1.9 H (0.2-1.3) mg/dL AST 44 (17-59) U/L ALT 36 (21-72) U/L Alkaline Phosphatase 453 H (38-126) U/L Total Protein 6.5 (6.3-8.2) g/dL Albumin 3.0 L (3.5-5.0) g/dL - Imaging CT scan - abdomen: report reviewed, image reviewed CT scan - pelvis: report reviewed, image reviewed Assessment and Plan Assessment: Impression: Acute prostatitis with secondary fever. I'm worried about septic arthritis. IV cocaine abuse. Recommendations: I would continue with antibiotics as indicated. He probably needs to see infectious disease and/or orthopedics for the joints. There is nothing surgically required from a urologic standpoint. I suspect he'll void once the swelling of the prostate subsides. He will need at least a month's with of antibiotics to try to prevent chronic prostatitis.
[2017-07-19] MEDS: PIPERACILLIN-TAZOBACTAM 3.375 GM in DEXTROSE/WATER 1 50ML.BAG IVPB SCH (17:34)
--- NOTE | 2017-07-19 20:30 | CT ---
EXAMINATION TYPE: CT thoracic spine wo con DATE OF EXAM: 07/19/2017 COMPARISON: 07/10/2017 HISTORY: Back pain CT DLP: 1513 mGycm Automated exposure control for dose reduction was used. FINDINGS: The thoracic vertebra have normal spacing and alignment. Posterior elements are intact. There is no e vidence of a compression fracture. There is no thoracic paraspinal mass. There are bilateral pulmonar y infiltrates. There is a few millimeter anterior subluxation of C7 in relation to T1. IMPRESSION: THERE IS SOME SPONDYLOSIS IN THE LOWER CERVICAL SPINE. NO FRACTURE. BILATERAL POSTERIOR PULMONARY INF ILTRATES. THORACIC SPINE IS STABLE COMPARED TO OLD EXAM. PULMONARY INFILTRATES ARE NEW COMPARED TO OL D EXAM.
[2017-07-19] MEDS ORDERED: DIAZEPAM 5 MG TAB PO PRN (20:44)
[2017-07-19] MEDS: KETOROLAC 30 MG/ML 1 ML VIAL IVP SCH (21:15)
--- NOTE | 2017-07-19 23:37 | P.CONS ---
History of Present Illness - Reason for Consult Consult date: 07/19/17 - Chief Complaint Urinary retention - History of Present Illness 46-year-old female with a history of active cocaine injection drug use presents to emergency center with inability to pass urine. As this worsened he was having progressively worsening lower back pain with severe spasm. Prior to inability to pass urine he was having some difficulty with significant dysuria and bloody urine. He developed fever which increased to 102.1 over 2 days before coming to hospital. He also developed some nausea and emesis that is now resolved. The patient has been having difficulties over the last greater than 10 days and did come to the emergency center and was given some acetaminophen and muscle relaxants which did not allow significant improvement. The patient relates that he has significant difficulties with anxiety which partly drives his chronic drug use. Shortly before coming to Hospital he had punched a wall with his left hand and has significant pain to the left hand as well as the left shoulder. He does relate to some generalized joint inflammation and pain and feels very poorly overall. He said fever and chills. He relates since the Pederson catheter is placed his severe abdominal pain and spasm has improved but still feels miserable overall. Still has lower back pain and multiple joint pains. With evidence of sepsis with elevated lactic acid the infectious diseases consultation was requested. Review of Systems Patient feels very poorly HEENT:Denies headache or acute visual change. Denies sinus or mouth discomforts. Denies neck stiffness or pain. Denies significant oral cavity pain. Denies difficulty on swallowing. Lungs: Denies significant shortness of breath, cough, sputum production, or hemoptysis. Cardiovascular: Denies significant shortness of breath, chest pain, chest wall pain, orthopnea, dyspnea on exertion, syncope Gastrointestinal: Nausea with emesis have resolved since Pederson catheter is placed she's had no hematemesis melena or hematochezia and no profound diarrhea Urinary symptoms as per the HPI Musculoskeletal: Complains of chronic significant and ongoing joint complaints and lower back pain much worse with his urinary retention and improving back pain since the Pederson's been placed Skin: Denies any abscess areas at his recent injection drug sites but does have redness and pain to the left shoulder disproportionate other joints Neuro: Complains of headache but no visual change. Denies any new onset weakness or difficulty with ambulation. Denies falls or seizures. 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 History of Any Multi-Drug Resistant Organisms: None Reported Year Discovered:: 2013 MDRO Source:: knee Past Surgical History: Orthopedic Surgery Additional Past Surgical History / Comment(s): 3 titanium plates, screws and mesh in skull, facial reconstruction; right knee I&D/cartlidge removed. Past Anesthesia/Blood Transfusion Reactions: No Reported Reaction Additional Psychological History / Comment(s): Single. Denies having children. Spent time in [place] [facility]. Ongoing tobacco use. Injection drug use mostly with cocaine. Denies other significant current substance abuse. The experience. International travel. No animal exposures. Smoking Status: Current every day smoker - Past Family History Father Family Medical History: Myocardial Infarction ([place]) Additional Family Medical History / Comment(s): Father of a [place] in his early 50s. Mother Family Medical History: No Reported History Medications and Allergies Home Medications and Allergies Comment(s): Current Medications Acetaminophen (Tylenol Tab) 650 mg PO Q4HR PRN PRN Reason: Fever and/ or Mild Pain Last Admin: 07/19/17 14:47 Dose: 650 mg Diazepam (Valium) 5 mg PO QID PRN PRN Reason: Muscle Spasm Last Admin: 07/19/17 21:15 Dose: 5 mg Piperacillin/Tazobactam/ (Dextrose 3.375 gm/ IV Solution) 50 mls @ 12.5 mls/hr IVPB Q8HR ISHMAEL Last Admin: 07/19/17 17:34 Dose: 12.5 mls/hr Vancomycin HCl 1,500 mg/ (Sodium Chloride) 250 mls @ 125 mls/hr IVPB Q12H ISHMAEL Last Admin: 07/19/17 14:48 Dose: 125 mls/hr Ketorolac Tromethamine (Toradol) 30 mg IVP Q6HR ISHMAEL Stop: 07/23/17 20:44 Last Admin: 07/19/17 21:15 Dose: 30 mg Miscellaneous Information (Pharmacy To Dose Iv Vancomycin) 1 each MISCELLANE DIRECTED PRN PRN Reason: Per Protocol Morphine Sulfate (Morphine Sulfate (Inj)) 4 mg IVP Q4HR PRN PRN Reason: SEVERE Pain Last Admin: 07/19/17 20:37 Dose: 4 mg Nicotine (Habitrol 21mg/24hr Patch) 1 patch TRANSDERM DAILY [facility] Last Admin: 07/19/17 13:24 Dose: 1 patch Ondansetron HCl (Zofran) 4 mg IVP Q6HR PRN PRN Reason: Nausea And Vomiting Quetiapine Fumarate (Seroquel) 100 mg PO BID [facility] Last Admin: 07/19/17 21:56 Dose: 100 mg Home Medications Medication Instructions Recorded Confirmed Type Acetaminophen with Codeine 1 tab PO Q6H PRN 3 Days #12 tab 07/10/17 07/19/17 Rx [Tylenol w/codeine #3] Cyclobenzaprine [Flexeril] 10 mg PO TID #20 tab 07/10/17 07/19/17 Rx Ibuprofen [Motrin] 600 mg PO Q6HR PRN #20 tab 07/10/17 07/19/17 Rx QUEtiapine [SEROquel] 100 mg PO BID 07/10/17 07/19/17 History QUEtiapine [SEROquel] 50 mg PO BID 07/19/17 07/19/17 History cloNIDine HCL [Catapres] 0.1 mg PO HS 07/19/17 07/19/17 History Allergies Allergy/AdvReac Type Severity Reaction Status Date / Time No Known Allergies Allergy Verified 07/19/17 07:54 Physical Exam Vitals: Vital Signs Temp Pulse Pulse Resp BP BP BP 07/19/17 22:35 100.2 F H 115 H 20 127/64 07/19/17 17:24 99.8 F H 07/19/17 14:01 100.5 F H 117 H 22 129/61 07/19/17 12:05 96 142/88 07/19/17 09:20 98.7 F 106 H 20 121/73 07/19/17 08:50 100.1 F H 111 H 18 133/64 07/19/17 08:10 109 H 18 122/95 07/19/17 06:40 101.6 F H 106 H 20 147/71 07/19/17 02:55 100.6 F H 115 H 20 136/74 Pulse Ox 07/19/17 22:35 96 07/19/17 17:24 07/19/17 14:01 94 L 07/19/17 12:05 98 07/19/17 09:20 97 07/19/17 08:50 96 07/19/17 08:10 96 07/19/17 06:40 98 07/19/17 02:55 Intake and Output 07/19/17 07/19/17 07/20/17 14:59 22:59 06:59 Output Total 1000 1500 Balance -1000 -1500 Output: Urine 1000 1500 Other: Voiding Method Indwelling Catheter Indwelling Catheter # Voids 0 # Bowel Movements 0 1 46-year-old male who appears to be acutely ill with evidence of some weight loss, and muscular wasting HEENT: Anicteric conjunctiva are pink and moist nasal mucosa grossly intact without significant lesions, . Dentition is very poor thrush is present Neck: The neck is supple without significant lymphadenopathy or thyromegaly. Lungs: Good bilateral air entry wheezes are scattered throughout the lung paris without zenobia bronchial sounds or dullness or egophony Heart: Regular rate and rhythm with an audible S1-S2, no S3 no S4. There is no significant murmur click or rub, PMI was nondisplaced. Abdomen: Positive bowel sounds soft and nontender without palpable masses or organomegaly. There was no guarding or rebound. Apparently the prior significant tenderness over the suprapubic area has resolved Extremities: The upper and lower extremities reveal evidence of some muscular wasting, left shoulder has an area of erythema and tenderness, left hand is quite swollen and tender to use. He does relate punching the wall before coming to hospital. Has evidence of tenderness over the L5-S1 area on palpation and percussion without significant erythema in this area. Neuro: Awake alert oriented to person place and time. Patient has significant weakness requires 2 person assist to stand off the commode to get back in bed. He however is able to move upper and lower extremities on command despite the weakness. Skin reveals evidence of the multiple areas of prior injection drug use Results CBC & Chem 7: 07/19/17 03:04 07/19/17 03:04 Labs: Abnormal Lab Results - Last 24 Hours (Table) 07/19/17 07/19/17 07/19/17 Range/Units 03:04 03:04 03:04 WBC 31.8 H* (3.8-10.6) k/uL Hgb 11.7 L (13.0-17.5) gm/dL Hct 35.7 L (39.0-53.0) % Neutrophils # (Manual) 27.00 H (1.3-7.7) k/uL Metamyelocytes # (Man) 0.64 H (0) k/uL Myelocytes # (Manual) 0.32 H (0) k/uL Blast Cells # (Man) 0.32 H (0) k/uL Sodium 132 L (137-145) mmol/L Chloride 94 L (98-107) mmol/L Carbon Dioxide 21 L (22-30) mmol/L BUN 21 H (9-20) mg/dL Glucose 118 H (74-99) mg/dL Plasma Lactic Acid Brian 2.2 H* (0.7-2.0) mmol/L Calcium 8.1 L (8.4-10.2) mg/dL Total Bilirubin 1.9 H (0.2-1.3) mg/dL Alkaline Phosphatase 453 H (38-126) U/L Albumin 3.0 L (3.5-5.0) g/dL Lipase 14 L (23-300) U/L Urine Protein (Negative) Urine Blood (Negative) Ur Leukocyte Esterase (Negative) Urine WBC (0-5) /hpf Urine WBC Clumps (None) /hpf Urine Bacteria (None) /hpf Urine Mucus (None) /hpf U Tricyclic Antidepress (NotDetected) 07/19/17 07/19/17 Range/Units 03:37 03:37 WBC (3.8-10.6) k/uL Hgb (13.0-17.5) gm/dL Hct (39.0-53.0) % Neutrophils # (Manual) (1.3-7.7) k/uL Metamyelocytes # (Man) (0) k/uL Myelocytes # (Manual) (0) k/uL Blast Cells # (Man) (0) k/uL Sodium (137-145) mmol/L Chloride (98-107) mmol/L Carbon Dioxide (22-30) mmol/L BUN (9-20) mg/dL Glucose (74-99) mg/dL Plasma Lactic Acid Brian (0.7-2.0) mmol/L Calcium (8.4-10.2) mg/dL Total Bilirubin (0.2-1.3) mg/dL Alkaline Phosphatase (38-126) U/L Albumin (3.5-5.0) g/dL Lipase (23-300) U/L Urine Protein 1+ H (Negative) Urine Blood Small H (Negative) Ur Leukocyte Esterase Large H (Negative) Urine WBC >182 H (0-5) /hpf Urine WBC Clumps Many H (None) /hpf Urine Bacteria Few H (None) /hpf Urine Mucus Rare H (None) /hpf U Tricyclic Antidepress Detected H (NotDetected) Microbiology - Last 24 Hours (Table) 07/19/17 03:04 Blood Culture Gram Stain - Preliminary Blood 07/19/17 03:04 Blood Culture - Preliminary Blood 07/19/17 03:37 Urine Culture - Preliminary Urine,Catheterized Laboratory Results WBC 31.8 k/uL (3.8-10.6) H* 07/19/17 03:04 RBC 4.30 m/uL (4.30-5.90) 07/19/17 03:04 Hgb 11.7 gm/dL (13.0-17.5) L 07/19/17 03:04 Hct 35.7 % (39.0-53.0) L 07/19/17 03:04 MCV 83.0 fL (80.0-100.0) 07/19/17 03:04 MCH 27.3 pg (25.0-35.0) 07/19/17 03:04 MCHC 32.9 g/dL (31.0-37.0) 07/19/17 03:04 RDW 15.1 % (11.5-15.5) 07/19/17 03:04 Plt Count 357 k/uL (150-450) 07/19/17 03:04 Neutrophils % (Manual) 83 % 07/19/17 03:04 Band Neutrophils % 2 % 07/19/17 03:04 Lymphocytes % (Manual) 10 % 07/19/17 03:04 Monocytes % (Manual) 3 % 07/19/17 03:04 Metamyelocytes % 2 % 07/19/17 03:04 Myelocytes % 1 % 07/19/17 03:04 Blast Cells % Not Reportable 07/19/17 03:04 Neutrophils # (Manual) 27.00 k/uL (1.3-7.7) H 07/19/17 03:04 Lymphocytes # (Manual) 3.18 k/uL (1.0-4.8) 07/19/17 03:04 Monocytes # (Manual) 0.95 k/uL (0-1.0) 07/19/17 03:04 Metamyelocytes # (Man) 0.64 k/uL (0) H 07/19/17 03:04 Myelocytes # (Manual) 0.32 k/uL (0) H 07/19/17 03:04 Blast Cells # (Man) 0.32 k/uL (0) H 07/19/17 03:04 Nucleated RBCs 0 /100 WBC (0-0) 07/19/17 03:04 Toxic Vacuolation Present 07/19/17 03:04 Large Platelets Present 07/19/17 03:04 RBC Morphology Normal 07/19/17 03:04 Polychromasia Present 07/19/17 03:04 Anisocytosis (manual) Present 07/19/17 03:04 Sodium 132 mmol/L (137-145) L 07/19/17 03:04 Potassium 4.2 mmol/L (3.5-5.1) 07/19/17 03:04 Chloride 94 mmol/L (98-107) L 07/19/17 03:04 Carbon Dioxide 21 mmol/L (22-30) L 07/19/17 03:04 Anion Gap 17 mmol/L 07/19/17 03:04 BUN 21 mg/dL (9-20) H 07/19/17 03:04 Creatinine 1.06 mg/dL (0.66-1.25) 07/19/17 03:04 Est GFR (CKD-EPI)AfAm >90 (>60 ml/min/1.73 sqM) 07/19/17 03:04 Est GFR (CKD-EPI)NonAf 86 (>60 ml/min/1.73 sqM) 07/19/17 03:04 Glucose 118 mg/dL (74-99) H 07/19/17 03:04 Lactic Ac Sepsis Rflx Y 07/19/17 03:40 Plasma Lactic Acid Brian 0.8 mmol/L (0.7-2.0) 07/19/17 08:20 Calcium 8.1 mg/dL (8.4-10.2) L 07/19/17 03:04 Total Bilirubin 1.9 mg/dL (0.2-1.3) H 07/19/17 03:04 AST 44 U/L (17-59) 07/19/17 03:04 ALT 36 U/L (21-72) 07/19/17 03:04 Alkaline Phosphatase 453 U/L (38-126) H 07/19/17 03:04 Troponin I <0.012 ng/mL (0.000-0.034) 07/19/17 08:20 Total Protein 6.5 g/dL (6.3-8.2) 07/19/17 03:04 Albumin 3.0 g/dL (3.5-5.0) L 07/19/17 03:04 Amylase 36 U/L (30-110) 07/19/17 03:04 Lipase 14 U/L (23-300) L 07/19/17 03:04 Urine Color Yellow 07/19/17 03:37 Urine Appearance Cloudy (Clear) 07/19/17 03:37 Urine pH 7.5 (5.0-8.0) 07/19/17 03:37 Ur Specific [place] 1.009 (1.001-1.035) 07/19/17 03:37 Urine Protein 1+ (Negative) H 07/19/17 03:37 Urine Glucose (UA) Negative (Negative) 07/19/17 03:37 Urine Ketones Negative (Negative) 07/19/17 03:37 Urine Blood Small (Negative) H 07/19/17 03:37 Urine Nitrite Positive (Negative) 07/19/17 03:37 Urine Bilirubin Negative (Negative) 07/19/17 03:37 Urine Urobilinogen 4.0 mg/dL (<2.0) 07/19/17 03:37 Ur Leukocyte Esterase Large (Negative) H 07/19/17 03:37 Urine RBC 4 /hpf (0-5) 07/19/17 03:37 Urine WBC >182 /hpf (0-5) H 07/19/17 03:37 Urine WBC Clumps Many /hpf (None) H 07/19/17 03:37 Urine Bacteria Few /hpf (None) H 07/19/17 03:37 Urine Mucus Rare /hpf (None) H 07/19/17 03:37 Urine Opiates Screen Not Detected (NotDetected) 07/19/17 03:37 Ur Oxycodone Screen Not Detected (NotDetected) 07/19/17 03:37 Urine Methadone Screen Not Detected (NotDetected) 07/19/17 03:37 Ur Propoxyphene Screen Not Detected (NotDetected) 07/19/17 03:37 Ur Barbiturates Screen Not Detected (NotDetected) 07/19/17 03:37 U Tricyclic Antidepress Detected (NotDetected) H 07/19/17 03:37 Ur Phencyclidine Scrn Not Detected (NotDetected) 07/19/17 03:37 Ur Amphetamines Screen Not Detected (NotDetected) 07/19/17 03:37 U Methamphetamines Scrn Not Detected (NotDetected) 07/19/17 03:37 U Benzodiazepines Scrn Not Detected (NotDetected) 07/19/17 03:37 Urine Cocaine Screen Not Detected (NotDetected) 07/19/17 03:37 U Marijuana (THC) Screen Not Detected (NotDetected) 07/19/17 03:37 Microbiology 07/19/17 03:04 Blood Blood Culture Gram Stain - Preliminary 07/19/17 03:04 Blood Blood Culture - Preliminary 07/19/17 03:37 Urine,Catheterized Urine Culture - Preliminary Assessment and Plan (1) Acute urinary retention Current Visit: Yes Status: Acute Code(s): R33.8 - OTHER RETENTION OF URINE SNOMED Code(s): 361531992 (2) Sepsis Narrative/Plan: 46-year-old male who has a history of injection drug use with cocaine presents to Hospital with significant pain and misery especially of his lower back and suprapubic area. He was having dysuria and hematuria before his admission as well as 102 fever with chills and rigors. At presentation there with acute urinary attention and with Pederson catheter placement he has definitely had improvement of his status. However he remains ill with multiple other difficulties include some ongoing fever multiple joint pains and evidence of thrush. If this time concern will be to underlying systemic infection and bacteremia bacteremia related to his injection drug use. Echocardiogram is requested. Follow blood cultures are requested. Antibiotic therapy is being utilized with vancomycin and Zosyn for now which will cover usual pathogens which include staph and MRSA as well as pseudomonas which is also common injection drug users. There is elevated total bilirubin, and with social history HIV and hepatitis status is being evaluated. The lactic acidosis admission is improved with hydration and antibiotic therapy A severe leukocytosis will be monitored appears to be directly in the bases of the sepsis. The patient has had significant trauma to his face in the past and has reconstruction. It was not a candidate for MRI, CT scans and process to evaluate for the possibility of infection of the spine and epidural abscess. There is going to be significant difficulties in the discharge plan depending on the cultures from the urine and the blood and whether or not endocarditis is present. Patient is having severe pain being managed by the primary service however Toradol was added try to help with the severe discomfort and some Valium for his multiple spasms. Current Visit: Yes Status: Acute Code(s): A41.9 - SEPSIS, UNSPECIFIED ORGANISM SNOMED Code(s): 54827478 (3) Urinary tract infection Current Visit: Yes Status: Acute Code(s): N39.0 - URINARY TRACT INFECTION, SITE NOT SPECIFIED SNOMED Code(s): 72352364 (4) Leukocytosis Current Visit: Yes Status: Acute Code(s): D72.829 - ELEVATED WHITE BLOOD CELL COUNT, UNSPECIFIED SNOMED Code(s): 797528843 (5) Uses drugs by injection Current Visit: Yes Status: Acute Code(s): AJI1980 - SNOMED Code(s): 044795718
[2017-07-20] MEDS: PIPERACILLIN-TAZOBACTAM 3.375 GM in DEXTROSE/WATER 1 50ML.BAG IVPB SCH ×2 (00:10→09:02)
[2017-07-20] MEDS: KETOROLAC 30 MG/ML 1 ML VIAL IVP SCH ×3 (00:11→11:15)
[2017-07-20] MEDS: VANCOMYCIN 1,500 MG in SODIUM CHLORIDE 0.9% 250 ML IVPB SCH (04:26)
[2017-07-20] MEDS ORDERED: LEVOFLOXACIN 750MG-D5W PMX 750 MG in DEXTROSE/WATER 1 150ML.BAG IVPB SCH (06:00)
[2017-07-20 06:26] VITALS: BP 132/87; PULSE 95; RESP 16
[2017-07-20] MEDS: ACETAMINOPHEN TAB 325 MG TAB PO PRN (08:32)
--- NOTE | 2017-07-20 08:43 | CT ---
EXAMINATION TYPE: CT lumbar spine w con DATE OF EXAM: 07/19/2017 COMPARISON: NONE HISTORY: Abdominal pain and back pain with concern for abscess. CT DLP: 1898 mGycm Automated exposure control for dose reduction was used. TECHNIQUE: CT scan of the lumbar is performed without and with IV Contrast, patient injected with 100 mL of Isov ue 300. Examination was reconstructed from the CT abdomen and pelvis examination of the same date. Ev aluation of the visualized portions of the chest, abdomen, and pelvis are detailed in that report. B one and soft tissue window settings are submitted as well as coronal and sagittal reconstructions. FINDINGS: There is opposing surface sclerosis with mild endplate irregularity at L4-L5. Although this could be on the basis of degenerative disc disease early osteomyelitis/discitis is possible as there are phlegmonous changes anterior to the disc space at this level such as on series 8 image 88 and lo w-attenuation within the right psoas muscle with a smaller component measuring 1.5 x 0.7 cm and the l arger component measuring 1.5 x 1.7 cm. Left psoas remains unremarkable. Phlegmonous changes about th e inferior vena cava bifurcation into the common iliac veins. No gross evidence of thrombus is identi fied. Throughout the remainder the lumbar spine there are mild multilevel degenerative changes demonstrated as small anterior osteophytes, intervertebral disc space narrowing, small Schmorl's node at the L2 i nferior endplate and multilevel facet arthropathy. Vertebral bodies and alignment are overall maintai rishi with straightening of the usual lumbar lordosis. Sacroiliac joints are symmetric. Osseous structu res are grossly intact. Hemisacralization of the right L5 vertebral body is noted. L1-L2: Normal disc space height. No disc herniation protrusion or central stenosis. No facet joint arthropathy. No evidence for foraminal encroachment. L2-L3: Broad-based disc bulge and disc desiccation without spinal canal stenosis. At least mild bilat eral neural foraminal narrowing is seen on CT. This is better evaluated with MRI. L3-L4: There is a left eccentric broad-based disc bulge creating moderate left and mild right neuro foraminal narrowing. No spinal canal stenosis. L4-L5: A focal central disc herniation is questioned and again better evaluated on MRI and this appea rs to create at least mild spinal canal stenosis and severe bilateral neural foraminal narrowing. Fac et arthropathy and ligamentum flavum hypertrophy are also seen at this level. L5-S1: Small broad-based disc bulge without spinal canal stenosis or neural foraminal narrowing. IMPRESSION: 1. Findings concerning for early osteomyelitis-discitis at the L4-L5 vertebral level with phlegmonous changes seen anteriorly abutting the inferior vena cava and probable small abscesses within the righ t psoas musculature. This finding can be confirmed with MRI. 2. Central disc herniation at L4-5 creating at least mild spinal canal stenosis and severe bilateral neural foraminal narrowing. Other multilevel changes are mild throughout the lumbar spine with multil evel neural foraminal narrowing as described above.
[2017-07-20] MEDS: QUEtiapine 100 MG TAB PO SCH (09:02)
[2017-07-20] MEDS: NICOTINE 21MG/24HR PATCH TRANSDERM SCH (09:03)
[2017-07-20] MEDS: MORPHINE SULFATE 2 MG/ML SYRINGE IVP PRN ×2 (09:03→13:00)
[2017-07-20 09:38] VITALS: TEMP 100.6
--- NOTE | 2017-07-20 10:01 | P.DS ---
Providers Date of admission: 07/19/17 06:05 Attending physician: Eusebio Chavez MD There is a 46-year-old male with past medical history of IV drug abuse cocaine use was admitted to the hospital with urinary retention and symptoms of sepsis and UTI she denies any started on IV antibiotics Vanco and Zosyn and infectious disease and urology has been consulted we attempted to do an MRI of the lumbar spine to rule out any abscess, MRI was not able to be done due to the possibility that the patient does have wires and essential bones so computed tomography scan was ordered also myelitis and discitis of the L4-L5 cannot be ruled out and the possibility of phlegmon in front of these discs spaces also cannot be ruled out so patient was arranged to be transferred to [facility] for neurosurgery evaluation Patient states that he has difficulty moving his right lower extremity but this has been going for the last at least 4 days patient states that he did have similar symptoms like this before when he did have a bulging disc in the in the spine but he said it was not to this extent Patient still feels weak and have back pain Review of systems since systems has been reviewed all negative and positive findings as per HPI Constitutional: No acute distress, conversant, pleasant Eyes: A ENMT: Cranial nerves grossly intact Neck: Supple, FROM, no masses, or JVD No carotid bruits No thyromegaly Lungs: Clear to auscultation Clear to percussion Normal respiratory effort, no accessory muscle use Cardiovascular: Heart regular in rate and rhythm, No murmurs, gallops, or rubs No pebound or reripheral edema Abdominal: Soft Nontender, no guarding, r Skin: Normal temperature, tone, texture, turgor No induration No subcutaneous nodules No rash, lesions No ulcers Extremities: No digital cyanosis No clubbing Pedal pulses intact and symmetrical Radial pulses intact and symmetrical Normal gait and station No calf tenderness Psychiatric:Alert and oriented to person, place and time Appropriate affect Intact judgement Neuro: Question about 4/5 weakness in the right lower extremity Assessment and plan sepsis UTI Discitis osteomyelitis of the L4-L5 cannot be ruled out also phlegmon in front of these discs spaces cannot be ruled out and patient has been transferred for neurosurgical evaluation since we have difficulty doing MRI Patient is hemodynamically stable Also the patient may need also infectious disease and urology consult and also orthopedic consults to be continued Patient has been informed about the transfer and he is agreeable Consults: 07/19/17 06:05 Consult Physician Stat Consulting Provider: Dedrick Rodrigues Consult Reason/Comments: sepsis. Do you want consulting provider notified?: Yes 07/19/17 11:54 Consult Physician Routine Consulting Provider: Jin Estrada Consult Reason/Comments: urinary retention Do you want consulting provider notified?: Yes Primary care physician: Stated None Patient Condition at Discharge: Serious Plan - Discharge Summary Discharge Rx Participant: Yes New Discharge Prescriptions: No Action QUEtiapine [SEROquel] 100 mg PO BID Acetaminophen with Codeine [Tylenol w/codeine #3] 1 tab PO Q6H PRN 3 Days # 12 tab PRN Reason: Pain Cyclobenzaprine [Flexeril] 10 mg PO TID #20 tab Ibuprofen [Motrin] 600 mg PO Q6HR PRN #20 tab PRN Reason: Pain cloNIDine HCL [Catapres] 0.1 mg PO HS QUEtiapine [SEROquel] 50 mg PO BID Discharge Medication List Acetaminophen with Codeine [Tylenol w/codeine #3] 1 tab PO Q6H PRN 3 Days #12 tab 07/10/17 [Rx] Cyclobenzaprine [Flexeril] 10 mg PO TID #20 tab 07/10/17 [Rx] Ibuprofen [Motrin] 600 mg PO Q6HR PRN #20 tab 07/10/17 [Rx] QUEtiapine [SEROquel] 100 mg PO BID 07/10/17 [History] QUEtiapine [SEROquel] 50 mg PO BID 07/19/17 [History] cloNIDine HCL [Catapres] 0.1 mg PO HS 07/19/17 [History] Follow up Appointment(s)/Referral(s): None,Stated [Primary Care Provider] - 1-2 days
[2017-07-20 10:26] LABS: Basophils % (A) 0 %; Eosinophils # (A) 0.1 k/uL (0-0.7); Eosinophils % (A) 1 %; HCT 29.1 % (39.0-53.0); Lymphocytes # (A) 1.6 k/uL (1.0-4.8); Lymphocytes % (A) 8 %; MCH 28.1 pg (25.0-35.0); MCHC 32.9 g/dL (31.0-37.0); MCV 85.3 fL (80.0-100.0); Mean Platelet Volume 7.5; Monocytes # (A) 0.8 k/uL (0-1.0); Monocytes % (A) 4 %; Neutrophils # (A) 15.7 k/uL (1.3-7.7); Neutrophils % (A) 85 %; Platelet Count 391 k/uL (150-450); RBC 3.42 m/uL (4.30-5.90); RDW 15.4 % (11.5-15.5); WBC 18.5 k/uL (3.8-10.6)
[2017-07-20 10:32] LABS: HGB 9.6 gm/dL (13.0-17.5)
[2017-07-20 10:48] LABS: ALT 41 U/L (21-72); AST 48 U/L (17-59); Albumin 2.3 g/dL (3.5-5.0); Alkaline Phosphatase 343 U/L (38-126); Anion Gap 10 mmol/L; Blood Urea Nitrogen 17 mg/dL (9-20); Calcium 7.7 mg/dL (8.4-10.2); Carbon Dioxide 25 mmol/L (22-30); Chloride 102 mmol/L (98-107); Glucose 100 mg/dL (74-99); Potassium 4.5 mmol/L (3.5-5.1); Sodium 137 mmol/L (137-145); Total Protein 5.6 g/dL (6.3-8.2)
[2017-07-20 11:05] LABS: C Reactive Protein 259.9 mg/L (<10.0)
[2017-07-20 11:31] LABS: Erythrocyte Sedimentation Rate 101 mm/hr (0-15)
--- NOTE | 2017-07-20 15:34 | ECHOF ---
Referral Reason:Endocarditis MEASUREMENTS -------- HEIGHT: 185.4 cm WEIGHT: 83.9 kg BP: 121/73 RVIDd: 3.2 cm (< 3.3) IVSd: 0.9 cm (0.6 - 1.1) LVIDd: 5.2 cm (3.9 - 5.3) LVPWd: 1.1 cm (0.6 - 1.1) IVSs: 1.3 cm LVIDs: 4.0 cm LVPWs: 1.3 cm LA Diam: 3.6 cm (2.7 - 3.8) LAESV Index (A-L): 21.90 ml/m Ao Diam: 2.8 cm (2.0 - 3.7) AV Cusp: 2.0 cm (1.5 - 2.6) MV EXCURSION: 18.829 mm (> 18.000) MV EF SLOPE: 63 mm/s (70 - 150) EPSS: 0.4 cm MV E Bebeto: 0.87 m/s MV DecT: 256 ms MV A Bebeto: 1.07 m/s MV E/A Ratio: 0.82 FINDINGS -------- Resting tachycardia (HR>100bpm). This was a technically good study. The left ventricular size is normal. Left ventricular wall thickness is normal. Overall left vent ricular systolic function is normal with, an EF between 60 - 65 %. The right ventricle is normal in size. Normal LA size by volume 22+/-6 ml/m2. The right atrium is normal in size. The aortic valve is trileaflet and appears structurally normal. Mild mitral annular calcification present. The tricuspid valve appears structurally normal. There is no pulmonic regurgitation present. The aortic root size is normal. Normal inferior vena cava with normal inspiratory collapse consistent with estimated right atrial pre ssure of 5 mmHg. There is a trivial pericardial effusion present. CONCLUSIONS -------- 1. Resting tachycardia (HR>100bpm). 2. This was a technically good study. 3. The left ventricular size is normal. 4. Left ventricular wall thickness is normal. 5. Overall left ventricular systolic function is normal with, an EF between 60 - 65 %. 6. The right ventricle is normal in size. 7. Normal LA size by volume 22+/-6 ml/m2. 8. The right atrium is normal in size. 9. The aortic valve is trileaflet and appears structurally normal. 10. Mild mitral annular calcification present. 11. The tricuspid valve appears structurally normal. 12. There is no pulmonic regurgitation present. 13. The aortic root size is normal. 14. Normal inferior vena cava with normal inspiratory collapse consistent with estimated right atrial pressure of 5 mmHg. 15. There is a trivial pericardial effusion present. TITLE MANAGER: Amanda Trinidad RDCS
[2017-07-20 18:06] LABS: HIV AB P24 Non-Reactive (Non-Reactive); HIV P24 AG Non-Reactive (Non-Reactive)
[2017-07-20 21:16] LABS: Hepatitis A Antibody IgM Non-Reactive (Non-Reactive); Hepatitis B Core IgM Non-Reactive (Non-Reactive)
== END 2017-07-20 13:14 | disposition short-term general hospital (02) | DRG 872 ==
LOC: EC 02:54 → 4MS4W 06:05
PROVIDERS: ADMIT Family Medicine; ATTEND Family Medicine
DX: A41.9 Sepsis, unspecified organism (principal); E87.1 Hypo-osmolality and hyponatremia; L03.90 Cellulitis, unspecified; N39.0 Urinary tract infection, site not specified; N41.0 Acute prostatitis; B37.0 Candidal stomatitis; M86.9 Osteomyelitis, unspecified; F14.10 Cocaine abuse, uncomplicated; F15.10 Other stimulant abuse, uncomplicated; F17.210 Nicotine dependence, cigarettes, uncomplicated; F25.9 Schizoaffective disorder, unspecified; F41.9 Anxiety disorder, unspecified; F60.3 Borderline personality disorder; J44.9 Chronic obstructive pulmonary disease, unspecified; M19.90 Unspecified osteoarthritis, unspecified site; R65.20 Severe sepsis without septic shock; G89.29 Other chronic pain; M25.50 Pain in unspecified joint; M79.642 Pain in left hand; R31.9 Hematuria, unspecified; R33.9 Retention of urine, unspecified; M54.9 Dorsalgia, unspecified; F31.9 Bipolar disorder, unspecified; M46.46 Discitis, unspecified, lumbar region; Z79.899 Other long term (current) drug therapy; Z79.82 Long term (current) use of aspirin; Z86.14 Personal history of Methicillin resistant Staphylococcus aureus infection; Z87.01 Personal history of pneumonia (recurrent); Z82.49 Family history of ischemic heart disease and other diseases of the circulatory system; X58.XXXA Exposure to other specified factors, initial encounter; Y93.9 Activity, unspecified; Y92.9 Unspecified place or not applicable
CPT/HCPCS: 36415; 51702; 71045; 72128; 72132; 74177; 76376; 80053; 80074; 80306; 81001; 82150; 83605; 83690; 84484; 85025; 85652; 86140; 87040; 87077; 87086; 87186; 87390; 93005; 93306; 96365; 96366; 96367; 96375; 96376; 99285

== ENCOUNTER → 2018-12-14 | Outpatient (CLI) | payer OTHER ==
[2018-12-14 16:12] LABS: Basophils # (A) 0.1 k/uL (0-0.2); Basophils % (A) 1 %; Eosinophils # (A) 0.2 k/uL (0-0.7); Eosinophils % (A) 2 %; HGB 17.2 gm/dL (13.0-17.5); Lymphocytes # (A) 2.1 k/uL (1.0-4.8); Lymphocytes % (A) 27 %; MCH 29.9 pg (25.0-35.0); MCV 90.6 fL (80.0-100.0); Mean Platelet Volume 6.6; Monocytes # (A) 0.4 k/uL (0-1.0); Monocytes % (A) 5 %; Neutrophils # (A) 4.9 k/uL (1.3-7.7); Neutrophils % (A) 62 %; Platelet Count 260 k/uL (150-450); RBC 5.74 m/uL (4.30-5.90); RDW 13.2 % (11.5-15.5); WBC 7.8 k/uL (3.8-10.6)
[2018-12-14 23:20] LABS: African American GFR (CKD) 104.1 (60.0-200.0); Albumin 4.7 g/dL (3.80-4.90); Albumin/Globulin Ratio 1.81 (1.60-3.17); Anion Gap 6.5 mmol/L (4.00-12.00); Calcium 9.7 mg/dL (8.7-10.3); Carbon Dioxide 26.5 mmol/L (21.6-31.8); Globulin 2.6 g/dL (1.6-3.3); Magnesium 1.8 mg/dL (1.5-2.4); Potassium 4.8 mmol/L (3.5-5.5); Total Bilirubin 0.2 mg/dL (0.3-1.2); Total Protein 7.3 g/dL (6.2-8.2)
--- NOTE | 2018-12-15 09:36 | XR ---
EXAMINATION TYPE: XR knee complete LT DATE OF EXAM: 12/14/2018 CLINICAL HISTORY: pain TECHNIQUE: Three views of the left knee are obtained. COMPARISON: None. FINDINGS: There is no acute fracture/dislocation. The tri-compartment joint spaces appear within no rmal limits. The overlying soft tissue appears unremarkable. IMPRESSION: There is no acute fracture or dislocation ICD 10 NO FRACTURE, INITIAL EVALUATION
== END | disposition home or self-care (01) ==
LOC: LABWHC1 15:44
PROVIDERS: ATTEND Nurse Practitioner Family
DX: M25.562 Pain in left knee (principal); I10 Essential (primary) hypertension
CPT/HCPCS: 36415; 80053; 82306; 83735; 84439; 84443; 85025

== ENCOUNTER 2019-02-22 06:43 | Observation (INO) | payer OTHER ==
[2019-02-22 15:23] VITALS: BP 161/103; PULSE 96; RESP 18; TEMP 97.6
== END 2019-02-22 17:46 | disposition left against medical advice (07) ==
LOC: EC 06:43 → INTOOBSV 10:31 → 4SSUR 10:31 → UNDOADMIN 10:31 → UNDODISIN 17:46
PROVIDERS: ADMIT Internal Medicine; ATTEND Internal Medicine
DX: R56.9 Unspecified convulsions (principal); F17.210 Nicotine dependence, cigarettes, uncomplicated; F31.9 Bipolar disorder, unspecified; B02.9 Zoster without complications; F12.10 Cannabis abuse, uncomplicated; F14.10 Cocaine abuse, uncomplicated; F15.10 Other stimulant abuse, uncomplicated; Z23 Encounter for immunization; M79.641 Pain in right hand; Z53.29 Procedure and treatment not carried out because of patient's decision for other reasons; F41.9 Anxiety disorder, unspecified; J44.9 Chronic obstructive pulmonary disease, unspecified; M47.812 Spondylosis without myelopathy or radiculopathy, cervical region; M48.02 Spinal stenosis, cervical region; S01.01XA Laceration without foreign body of scalp, initial encounter; W19.XXXA Unspecified fall, initial encounter; Z79.899 Other long term (current) drug therapy; Z82.49 Family history of ischemic heart disease and other diseases of the circulatory system; M54.9 Dorsalgia, unspecified; G89.29 Other chronic pain; Z86.14 Personal history of Methicillin resistant Staphylococcus aureus infection; Z71.51 Drug abuse counseling and surveillance of drug abuser
CPT/HCPCS: 96374; 12001; 90471; 96372; 99285; 36415; 95816; 93005; 80053; 85025; 80306; 73130; 72125; 70450; 90715; G0378; J2060; J1885

== ENCOUNTER 2020-10-23 11:05 | Inpatient (IN) | payer OTHER ==
[2020-10-23] MEDS ORDERED: SODIUM CHLORIDE 0.9% 1,000 ML IV ONE (11:26)
--- NOTE | 2020-10-23 11:29 | ED ---
General Adult HPI - General Chief complaint: Nausea/Vomiting/Diarrhea Stated complaint: sob Time Seen by Provider: 10/23/20 11:06 Source: patient, family, EMS, RN notes reviewed, old records reviewed Mode of arrival: EMS - History of Present Illness Initial comments: 49-year-old male presenting for evaluation of cough, dyspnea, vomiting and significant diarrhea. Symptoms began last night. Patient has had subjective fever and chills. He has some chest discomfort as well. Patient denies history of CAD or chronic medical conditions. Denies current medication. He does admit to every day tobacco use. He is uncertain if he's come in contact with coronavirus. He is not vaccinated against coronavirus. - Related Data Home Medications Medication Instructions Recorded Confirmed No Known Home Medications 10/23/20 10/23/20 Allergies Allergy/AdvReac Type Severity Reaction Status Date / Time No Known Allergies Allergy Verified 10/23/20 12:43 Review of Systems ROS Statement: Those systems with pertinent positive or pertinent negative responses have been documented in the HPI. ROS Other: All systems not noted in ROS Statement are negative. Past Medical History Past Medical History: COPD Additional Past Medical History / Comment(s): facial reconstruction chronic back pain History of Any Multi-Drug Resistant Organisms: MRSA Date of last positivie culture/infection: 2013 MDRO Source:: knee Past Surgical History: Orthopedic Surgery Additional Past Surgical History / Comment(s): facial reconstruction; right knee Past Anesthesia/Blood Transfusion Reactions: No Reported Reaction Past Psychological History: Anxiety, Bipolar Smoking Status: Current every day smoker Past Alcohol Use History: None Reported Past Drug Use History: Cocaine, Heroin, Marijuana, Opiates, Prescription Drug Abuse - Past Family History Father Family Medical History: Myocardial Infarction (NE) Additional Family Medical History / Comment(s): Father of a NE in his early 50s. Mother Family Medical History: No Reported History General Exam General appearance: alert, in no apparent distress Head exam: Present: atraumatic, normocephalic Eye exam: Present: normal appearance, PERRL ENT exam: Present: mucous membranes dry Neck exam: Present: normal inspection. Absent: tenderness, meningismus Respiratory exam: Present: respiratory distress, rhonchi, decreased breath sounds Cardiovascular Exam: Present: normal rhythm, tachycardia GI/Abdominal exam: Present: soft. Absent: distended, tenderness, guarding Extremities exam: Present: normal inspection, normal capillary refill. Absent: pedal edema Neurological exam: Present: alert, oriented X3, CN II-XII intact. Absent: motor sensory deficit Psychiatric exam: Present: normal affect, normal mood Skin exam: Present: warm, dry, intact. Absent: cyanosis, diaphoretic Course Vital Signs 10/23/20 10/23/20 11:08 13:48 Temperature 97.6 F Pulse Rate 123 H 111 H Respiratory 18 24 Rate Blood Pressure 133/79 122/68 O2 Sat by Pulse 87 L 96 Oximetry EKG Findings - EKG Comments: EKG Findings:: EKG: Sinus tachycardia, right atrial enlargement, rate of 113, CA interval 1:30, QRS duration 92, QTC 455, no ST segment elevation. Medical Decision Making - Medical Decision Making 49-year-old male presenting with hypoxia, cough dyspnea, vomiting. Patient not vaccinated against coronavirus. His history is concerning for coronavirus. Workup is initiated. EKG sinus tachycardia without ST segment elevation. Chest x-ray showing a bilateral multifocal pneumonia. Initial rapid coronavirus test is negative. I did initiate antibiotics in the emergency department however I suspect this may be coronavirus pneumonia with hypoxia. He has significant rated LVH, elevated AST and ALT. He has an elevated troponin at 0.2. Patient is started on heparin, given aspirin, given IV steroids, he started on antibiotics due to the fact that his rapid coronavirus test is negative. PCR test has been ordered results are pending. CT angiography is ordered these results are pending. I did discuss case with Dr. Albrecht, she will admit with both cardiology and pulmonology on consult. - Lab Data Result diagrams: 10/23/20 13:28 Lab Results 10/23/20 10/23/20 10/23/20 Range/Units 11:16 13:28 13:28 PT 12.4 H (9.0-12.0) sec INR 1.2 H (<1.2) APTT 21.1 L (22.0-30.0) sec D-Dimer 5.72 H (<0.60) mg/L FEU Sodium (137-145) mmol/L Potassium (3.5-5.1) mmol/L Chloride (98-107) mmol/L Carbon Dioxide (22-30) mmol/L Anion Gap mmol/L BUN (9-20) mg/dL Creatinine (0.66-1.25) mg/dL Est GFR (CKD-EPI)AfAm (>60 ml/min/1.73 sqM) Est GFR (CKD-EPI)NonAf (>60 ml/min/1.73 sqM) Glucose (74-99) mg/dL Plasma Lactic Acid Brian (0.7-2.0) mmol/L Calcium (8.4-10.2) mg/dL Magnesium (1.6-2.3) mg/dL Total Bilirubin (0.2-1.3) mg/dL AST (17-59) U/L ALT (4-49) U/L Alkaline Phosphatase (38-126) U/L Lactate Dehydrogenase (313-618) U/L Troponin I 0.201 H* (0.000-0.034) ng/mL C-Reactive Protein (<1.0) mg/dL Total Protein (6.3-8.2) g/dL Albumin (3.5-5.0) g/dL Urine Opiates Screen (NotDetected) Ur Oxycodone Screen (NotDetected) Urine Methadone Screen (NotDetected) Ur Propoxyphene Screen (NotDetected) Ur Barbiturates Screen (NotDetected) U Tricyclic Antidepress (NotDetected) Ur Phencyclidine Scrn (NotDetected) Ur Amphetamines Screen (NotDetected) U Methamphetamines Scrn (NotDetected) U Benzodiazepines Scrn (NotDetected) Urine Cocaine Screen (NotDetected) U Marijuana (THC) Screen (NotDetected) Coronavirus (PCR) Not Detected (Not Detectd) 10/23/20 10/23/20 10/23/20 Range/Units 13:28 13:28 13:44 PT (9.0-12.0) sec INR (<1.2) APTT (22.0-30.0) sec D-Dimer (<0.60) mg/L FEU Sodium 131 L (137-145) mmol/L Potassium 5.2 H (3.5-5.1) mmol/L Chloride 100 (98-107) mmol/L Carbon Dioxide 16 L (22-30) mmol/L Anion Gap 15 mmol/L BUN 34 H (9-20) mg/dL Creatinine 1.21 (0.66-1.25) mg/dL Est GFR (CKD-EPI)AfAm 82 (>60 ml/min/1.73 sqM) Est GFR (CKD-EPI)NonAf 71 (>60 ml/min/1.73 sqM) Glucose 72 L (74-99) mg/dL Plasma Lactic Acid Brian 5.0 H* (0.7-2.0) mmol/L Calcium 8.8 (8.4-10.2) mg/dL Magnesium 1.5 L (1.6-2.3) mg/dL Total Bilirubin 1.1 (0.2-1.3) mg/dL AST 242 H (17-59) U/L ALT 170 H (4-49) U/L Alkaline Phosphatase 79 (38-126) U/L Lactate Dehydrogenase 1463 H (313-618) U/L Troponin I (0.000-0.034) ng/mL C-Reactive Protein >27.0 H (<1.0) mg/dL Total Protein 7.0 (6.3-8.2) g/dL Albumin 3.8 (3.5-5.0) g/dL Urine Opiates Screen Not Detected (NotDetected) Ur Oxycodone Screen Not Detected (NotDetected) Urine Methadone Screen Not Detected (NotDetected) Ur Propoxyphene Screen Not Detected (NotDetected) Ur Barbiturates Screen Not Detected (NotDetected) U Tricyclic Antidepress Not Detected (NotDetected) Ur Phencyclidine Scrn Not Detected (NotDetected) Ur Amphetamines Screen Detected H (NotDetected) U Methamphetamines Scrn Detected H (NotDetected) U Benzodiazepines Scrn Not Detected (NotDetected) Urine Cocaine Screen Not Detected (NotDetected) U Marijuana (THC) Screen Detected H (NotDetected) Coronavirus (PCR) (Not Detectd) Critical Care Time Critical Care Time: Yes Total Critical Care Time: 35 Disposition Clinical Impression: Amphetamine abuse, Dehydration, Bilateral pneumonia Disposition: ADMITTED IP TO THIS [facility] Condition: Serious Is patient prescribed a controlled substance at d/c from ED?: No [facility]errals[facility] [Primary Care Provider[facility] - 1-2 days Time of Disposition: 14:49 Decision to Admit Reason: Admit from EC Decision Date: 10/23/20 Decision Time: 14:50
--- NOTE | 2020-10-23 14:02 | XR ---
EXAMINATION TYPE: XR chest 1V portable DATE OF EXAM: 10/23/2020 COMPARISON: 07/19/2017 HISTORY: Nausea vomiting and diarrhea TECHNIQUE: Single frontal view of the chest is obtained. FINDINGS: Bilateral infiltrate with small effusion. Diffuse interstitial pattern no pneumothorax. He art size normal. Hypertrophic and degenerative changes of the spine. IMPRESSION: Bilateral infiltrates correlate for multifocal pneumonia.
[2020-10-23 14:12] LABS: ALT 170 U/L (4-49); African American GFR (CKD) 82 (>60 ml/min/1.73 sqM); Anion Gap 15 mmol/L; Blood Urea Nitrogen 34 mg/dL (9-20); Calcium 8.8 mg/dL (8.4-10.2); Carbon Dioxide 16 mmol/L (22-30); Chloride 100 mmol/L (98-107); Glucose 72 mg/dL (74-99); Non-African American GFR(CKD) 71 (>60 ml/min/1.73 sqM); Sodium 131 mmol/L (137-145); Total Bilirubin 1.1 mg/dL (0.2-1.3)
[2020-10-23 14:16] LABS: INR 1.2 (<1.2); Prothrombin Time 12.4 sec (9.0-12.0)
[2020-10-23] MEDS ORDERED: cefTRIAXone IN SWFI 1,000 MG/10 ML SYRINGE IVP STA (14:16)
[2020-10-23] MEDS ORDERED: AZITHROMYCIN 500 MG in SODIUM CHLORIDE 0.9% 250 ML IVPB STA (14:16)
[2020-10-23] MEDS ORDERED: DEXAMETHASONE SOD PHOSPHATE 10 MG/ML 1 ML VIAL IV STA (14:16)
[2020-10-23 14:20] LABS: Potassium 5.2 mmol/L (3.5-5.1)
[2020-10-23 14:21] LABS: Amphetamine Screen,Urine Detected (NotDetected); Barbiturate Screen,Urine Not Detected (NotDetected); Benzodiazepines Screen,Urine Not Detected (NotDetected); Cocaine Screen,Urine Not Detected (NotDetected); Methadone Screen, Urine Not Detected (NotDetected); Opiate Screen,Urine Not Detected (NotDetected); Oxycodone Screen, Urine Not Detected (NotDetected); Phencyclidine Screen,Urine Not Detected (NotDetected); Tricyclic Antidepressant,Urine Not Detected (NotDetected); Urn Cannabinoid Scrn Detected (NotDetected)
[2020-10-23 14:21] LABS: AST 242 U/L (17-59); Albumin 3.8 g/dL (3.5-5.0); Alkaline Phosphatase 79 U/L (38-126); LDH 1463 U/L (313-618); Magnesium 1.5 mg/dL (1.6-2.3)
[2020-10-23 14:22] LABS: Partial Thromboplastin Time 21.1 sec (22.0-30.0)
[2020-10-23 14:31] LABS: C Reactive Protein >27.0 mg/dL (<1.0)
[2020-10-23] MEDS ORDERED: NALOXONE 0.4 MG/ML 1 ML VIAL IV PRN (14:43)
[2020-10-23] MEDS ORDERED: HEPARIN SODIUM 1,000 UN/ML (10ML VL) IV PRN (14:45)
[2020-10-23] MEDS ORDERED: HEPARIN SODIUM 1,000 UN/ML (10ML VL) IV ONE (14:45)
[2020-10-23] MEDS ORDERED: HEPARIN SOD,PORK IN 0.45% NACL 25,000 UNIT in 0.45% NACL 1 250ML.BAG IV SCH (14:45)
[2020-10-23] MEDS ORDERED: ASPIRIN 325 MG TAB PO STA (14:45)
[2020-10-23 14:46] LABS: HCT 45.1 % (39.0-53.0); HGB 16.1 gm/dL (13.0-17.5); MCH 30.9 pg (25.0-35.0); MCHC 35.6 g/dL (31.0-37.0); MCV 86.8 fL (80.0-100.0); Mean Platelet Volume 8.9; Platelet Count 198 k/uL (150-450); RDW 13.3 % (11.5-15.5); WBC 12.1 k/uL (3.8-10.6)
[2020-10-23] MEDS: SODIUM CHLORIDE 0.9% 1,000 ML IV SCH ×2 (15:11→23:52)
[2020-10-23 15:36] LABS: Band Neutrophils % 19 %; Lymphocytes # (M) 0.24 k/uL (1.0-4.8); Metamyelocytes # (M) 0.36 k/uL (0); Metamyelocytes % 3 %; Monocytes # (M) 0.36 k/uL (0-1.0); Neutrophils % (M) 73 %; Nucleated Red Blood Cells 0 /100 WBC (0-0); Polychromasia Present; Total Cells Counted 100
--- NOTE | 2020-10-23 15:37 | CT ---
CT CHEST FOR PULMONARY EMBOLISM. EXAMINATION TYPE: CT angio chest DATE OF EXAM: 10/23/2020 INDICATION: GREGORY CT DLP: 536.2 mGycm, Automated exposure control for dose reduction was used. CONTRAST: Patient injected with 100 mL of Isovue 370. COMPARISON: CT chest 07/10/2017 TECHNIQUE: CT of the chest is performed on a spiral scan at 2 mm thick sections. Study is performed with intravenous contrast timed for evaluation for pulmonary embolism. This will limit additional po rtions of the evaluation. 3-D MIP images reconstructed by the technologist are reviewed on the compu ter in the coronal and sagittal planes. FINDINGS: No persistent filling defects are evident to suggest an acute pulmonary embolism. No mediastinal or hilar adenopathy enlarged by CT criteria is evident. The ascending aorta diameter at the level of the main pulmonary artery is 3.2 cm. The main pulmonary artery diameter at the bifur cation is 3.1 cm. No right heart strain There are dense consolidations in the posterior upper lung paris. Some patchy density is scattered t hrough the right mid and lingular regions. Posterior lung base consolidations are present. There is c onsolidation in the right middle lobe. Atelectasis and pneumonia should be considered. Atypical pneum onia should be considered. Underlying mass is not excluded and follow-up is recommended. Limited CT section through the upper abdomen. There may be some mild fatty infiltration of the liver. IMPRESSIONS: 1. No acute pulmonary embolism. 2. Dense consolidations through the bilateral lung paris discussed above. Pneumonia, atelectasis, an underlying masses should be considered. Follow-up to clearing is recommended.
[2020-10-23] MEDS ORDERED: VANCOMYCIN IV PER PHARMACY 1 EACH MISC MISCELLANE PRN (16:09)
[2020-10-23] MEDS ORDERED: IPRATROPIUM-ALBUTEROL 3 ML NEB INHALATION PRN (16:10)
[2020-10-23] MEDS ORDERED: VANCOMYCIN 1,750 MG in SODIUM CHLORIDE 0.9% 500 ML 500 ML IVPB ONE (17:00)
--- NOTE | 2020-10-23 17:05 | US ---
EXAMINATION TYPE: US abdomen limited DATE OF EXAM: 10/23/2020 COMPARISON: NONE CLINICAL HISTORY: transminitis, r/o ascitis. EXAM MEASUREMENTS: Liver Length: 18.9 cm Gallbladder Wall: 0.2 cm CBD: 0.5 cm Right Kidney: 13.4 x 5.0 x 5.8 cm Uncooperative patient, severe limitations, unable to fully evaluate organs. Pancreas: very limited visualization, appears wnl as seen Liver: very limited visualization, appears wnl as seen, measures large Gallbladder: very limited visualization, appears wnl as seen Evidence for sonographic Boudreaux's sign: no CBD: very limited visualization, appears wnl as seen Right Kidney: very limited visualization, appears wnl as seen, measures large No obvious ascites. IMPRESSION: No gallstones or dilated ducts. No focal liver defect. No evidence of ascites.
[2020-10-23] MEDS: PIPERACILLIN-TAZOBACTAM 3.375 GM in SODIUM CHLORIDE 0.9% 100 ML IVPB SCH ×2 (18:25→23:52)
--- NOTE | 2020-10-23 19:00 | ECHOF ---
Referral Reason:Troponin elevation MEASUREMENTS -------- HEIGHT: 185.4 cm WEIGHT: 99.8 kg BP: 122/68 RVIDd: 2.9 cm (< 3.3) IVSd: 1.3 cm (0.6 - 1.1) LVIDd: 4.3 cm (3.9 - 5.3) LVPWd: 1.2 cm (0.6 - 1.1) IVSs: 1.5 cm LVIDs: 2.8 cm LVPWs: 1.7 cm LA Diam: 2.8 cm (2.7 - 3.8) Ao Diam: 3.3 cm (2.0 - 3.7) AV Cusp: 2.7 cm (1.5 - 2.6) MV EXCURSION: 26.030 mm (> 18.000) MV EF SLOPE: 79 mm/s (70 - 150) EPSS: 0.6 cm MV E Bebeto: 0.69 m/s MV DecT: 291 ms MV A Bebeto: 1.00 m/s MV E/A Ratio: 0.69 FINDINGS -------- Resting tachycardia (HR>100bpm). This was a technically adequate study. The left ventricular size is normal. There is mild concentric left ventricular hypertrophy. Overa ll left ventricular systolic function is low-normal with, an EF between 50 - 55 %. The right ventricle is normal in size. The left atrium is normal in size. The right atrium is normal in size. Interatrial and interventricular septum intact. The aortic valve is trileaflet, and appears structurally normal. No aortic stenosis or regurgitation. The mitral valve is normal. Trace tricuspid regurgitation present. Unable to estimate RVSP due to inadequate TR jet spectral do ppler profile. The pulmonic valve was not well visualized. The aortic root size is normal. Normal inferior vena cava with normal inspiratory collapse consistent with estimated right atrial pre ssure of 5 mmHg. There is no pericardial effusion. CONCLUSIONS -------- 1. The left ventricular size is normal. 2. There is mild concentric left ventricular hypertrophy. 3. Overall left ventricular systolic function is low-normal with, an EF between 50 - 55 %. 4. The aortic valve is trileaflet, and appears structurally normal. No aortic stenosis or regurgitati on. 5. Trace tricuspid regurgitation present. 6. There is no pericardial effusion. LAMP INSPECTOR: Amanda Trinidad RDCS
[2020-10-23] MEDS: ENOXAPARIN 100 MG/ML SYRINGE SQ SCH (19:51)
[2020-10-23] MEDS: IPRATROPIUM-ALBUTEROL 3 ML NEB INHALATION SCH (19:58)
[2020-10-23] MEDS ORDERED: LORazepam 2 MG/ML INJ IV PRN (20:35)
[2020-10-23] MEDS: LORazepam 2 MG/ML INJ IV PRN (21:15)
[2020-10-23] MEDS: MAGNESIUM OXIDE 400 MG TAB PO SCH (21:15)
[2020-10-24] MEDS: VANCOMYCIN 1,500 MG in SODIUM CHLORIDE 0.9% 250 ML IVPB SCH ×2 (06:22→16:42)
[2020-10-24] MEDS: SODIUM CHLORIDE 0.9% 1,000 ML IV SCH ×3 (06:23→20:25)
[2020-10-24 06:32] LABS: HCT 39.6 % (39.0-53.0); HGB 13.4 gm/dL (13.0-17.5); MCH 29.9 pg (25.0-35.0); MCHC 33.9 g/dL (31.0-37.0); MCV 88.4 fL (80.0-100.0); Mean Platelet Volume 7.8; Platelet Count 194 k/uL (150-450); RBC 4.48 m/uL (4.30-5.90); WBC 12.9 k/uL (3.8-10.6)
[2020-10-24 06:59] LABS: Band Neutrophils % 72 %; Lymphocytes # (M) 0.39 k/uL (1.0-4.8); Metamyelocytes # (M) 0.26 k/uL (0); Metamyelocytes % 2 %; Monocytes # (M) 0.26 k/uL (0-1.0); Neutrophils % (M) 21 %; Nucleated Red Blood Cells 0 /100 WBC (0-0); Total Cells Counted 200
[2020-10-24 07:00] LABS: Toxic Granulation Present
[2020-10-24] MEDS ORDERED: ALBUTEROL HFA INHALER INHALATION SCH (08:00)
[2020-10-24] MEDS: IPRATROPIUM-ALBUTEROL 3 ML NEB INHALATION SCH ×4 (08:00→19:22)
[2020-10-24] MEDS ORDERED: TIOTROPIUM 2.5 MCG INHALER INHALATION SCH (08:00)
[2020-10-24] MEDS ORDERED: ALBUTEROL HFA INHALER INHALATION PRN (08:28)
[2020-10-24] MEDS: MAGNESIUM OXIDE 400 MG TAB PO SCH ×2 (08:53→20:24)
[2020-10-24] MEDS: LORazepam 2 MG/ML INJ IV PRN ×3 (08:53→23:09)
[2020-10-24] MEDS: ENOXAPARIN 100 MG/ML SYRINGE SQ SCH (08:53)
[2020-10-24] MEDS: THIAMINE 100 MG TAB PO SCH ×2 (08:53→16:41)
[2020-10-24] MEDS: PIPERACILLIN-TAZOBACTAM 3.375 GM in SODIUM CHLORIDE 0.9% 100 ML IVPB SCH ×3 (08:54→23:40)
[2020-10-24] MEDS ORDERED: IPRATROPIUM-ALBUTEROL 3 ML NEB INHALATION PRN (10:24)
--- NOTE | 2020-10-24 10:37 | P.HPIM ---
History of Present Illness H&P Date: 10/24/20 Chief Complaint: severe hypoxia and acute respiratory failure, bilateral pne umonia, elevated HISTORY OF PRESENT ILLNESS 49-year-old male one of pupil clinic patient with past medical history of hypertension, COPD, seizure, bipolar and anxiety attacks, chronic smoking and chronic drug use who was in the hospital last over a year ago for worsening i nfection of the time was treated done well. Patient has not seen anybody for over a year has not taking any of his medication. 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 Patient also continue to use marijuana along with methamphetamine along with benzodiazepine he is not using cocaine or heroine lately Still smoking over a pack a day, He has been not feeling well for over 1 week with worsening shortness of breath and dyspnea along with cough and worsening shortness of breath with minimum exertion. Patient ended up coming to the emergency department at [facility] on 1complaining of dyspnea, cough, vomiting and diarrhea has been having fever and chills as well, preventative to 19 testing was negative, chest x-ray showed bilateral infiltrate with multifocal pneumonia,his labs showed elevated lactic acid 4.6 with troponin of 0.201 drug screen was positive for amphetamine, methamphetamine and marijuana. patient was started on O2 did not require any BiPAP started on nebulizer management along with steroid vancomycin and Zosyn with his d-dimer been elevated patient was started on heparin drip initially, CT of the lung did not show any embolism but just infiltrate we will stop anticoagulation is due DVT prophylaxis at this point patient is not having any significant anginal chest pain but is having chest wall pain as well. REVIEW OF SYSTEMS Constitutional: No fever, no chills, no night sweats. No weight change. No weakness, fatigue or lethargy. No daytime sleepiness. EENT: No headache. No blurred vision or double vision, no loss of vision. No loss of Hearing, no ringing in the ears, no dizziness. No nasal drainage or congestion. No epistaxis. No sore throat. Lungs: positive shortness of breath, cough, wheezes, dyspnea with exertion. Cardiovascular: positive chest wall pain, no lower extremity edema. No palpitations. positive PND and orthopnea. No lightheadedness or dizziness. No syncopal episodes. Abdominal: mild abdominal pain with nausea vomiting and diarrhea or constipation no tarry stool mild loss of appetite. Genitourinary: No dysuria, increased frequency, urgency. No urinary retention. Musculoskeletal: No myalgias. No muscle weakness, no gait dysfunction, no frequent falls. No back pain. No neck pain. Integumentary: No wounds, no lesions. No rash or pruritus. No unusual bruising. No change in hair or nails. Neurologic: No aphasia. No facial droop. No change in mentation. No head injury. No headache. No paralysis. No paresthesia. Psychiatric: No depression. No anxiety. No mood swings. Endocrine: No abnormal blood sugars. No weight change. No excessive sweating or thirst. No cold intolerance. SOCIAL HISTORY patient had used all sorts of drugs in his life cocaine her when marijuana and methamphetamine is currently smoke marijuana on regular basis and uses amphetamine weekly. Patient smokes 1 pack a day for over 20 years, no alcohol abuse is single and lives with his mother. FAMILY HISTORY his father any 50 from [place], mother is living 70s major medical problem. Patient had have sister and one brother both are living and well. PHYSICAL EXAMINATION Gen: This is 49-year-old laying comfortably still holding his chest having slight shortness of breath and mild tremor does not look in any respiratory distress HEENT: Head is atraumatic, normocephalic. Pupils equal, round. Sclerae is anicteric. NECK: Supple. No JVD. No lymphadenopathy. No thyromegaly. LUNGS: positive chest wall pain especially in the left side, positive crackles in the bases worsening of the right than the left side HEART: Regular rate and rhythm. No murmur. ABDOMEN: Soft. Bowel sounds are present. No masses. No tenderness. EXTREMITIES: No pedal edema. No calf tenderness. patient has bugs bite all over his body NEUROLOGICAL: Patient is awake, mild irritability, alert and oriented x3. Cranial nerves 2 through 12 are grossly intact. ASSESSMENT AND PLAN 1. acute respiratory failure: Secondary to bilateral pneumonia and possible fluid overload possible aspiration as well especially with his drug use at's current condition, continue to use higher flow oxygen if needed BiPAP, consult pulmonary continue patient onantibiotics, steroid, oxygen and better management for aspiration pneumonia. 2. COPD excessive patient: Will continue patient on steroid along with updraft with DuoNeb and Pulmicort. 3. aspiration pneumonia and sepsis: With significantly elevated lactic acid and hypoxia, patient was giving 1 g of vancomycin started on Zosyn continue current medication awaiting for culture patient will be seen pulmonary as well. 4. elevated troponin with a possible left non-ST MD: Echocardiogram was order continue CK with troponin 3 patient be seen cardiology. 5. elevated blood pressure: Apparently patient was on DEION inhibitor has not been on it for over a year continue to watch the blood pressure carefully after improving his sepsis and infection patient will be started back on a smaller dose of DEION inhibitor.. 6. mild tremor and irritability: Most likely from withdrawal from drugs, patient will be watch carefully use lorazepam on an as-needed basis to help him out event patient looks and act like somebody drink regularly. 7. chronic smoking: Start patient on nicotine patch at this point. 8. GI prophylaxis: Start patient on Pepcid. 9. DVT prophylaxis: Patient will be on Lovenox subcutaneous. 10. CODE STATUS: Full code. 11. COVID-19 testing. Patient will be admitted to the hospital for a minimum of 2 night stay. Past Medical History Past Medical History: COPD Additional Past Medical History / Comment(s): facial reconstruction chronic back pain History of Any Multi-Drug Resistant Organisms: MRSA Date of last positivie culture/infection: 2013 MDRO Source:: knee Past Surgical History: Orthopedic Surgery Additional Past Surgical History / Comment(s): facial reconstruction; right knee Past Anesthesia/Blood Transfusion Reactions: No Reported Reaction Past Psychological History: Anxiety, Bipolar Additional Psychological History / Comment(s): Single. Denies having children. Spent time in jail. Ongoing tobacco use. Injection drug use mostly with laron portillo. Denies other significant current substance abuse. The experience. International travel. No animal exposures. Smoking Status: Current every day smoker Past Alcohol Use History: None Reported Additional Past Alcohol Use History / Comment(s): Pt started smoking in 1998 and is a ppd smoker. Past Drug Use History: Cocaine, Heroin, Marijuana, Opiates, Prescription Drug Abuse Additional Drug Use History / Comment(s): Pt states he mostly uses cocaine and methamphetamines. He injects. He states he has quit using and last used about 8-9 days ago. - Past Family History Father Family Medical History: Myocardial Infarction ([place]) Additional Family Medical History / Comment(s): Father of a [place] in his early 50s. Mother Family Medical History: No Reported History Medications and Allergies Home Medications Medication Instructions Recorded Confirmed Type No Known Home Medications 10/23/20 10/23/20 History Allergies Allergy/AdvReac Type Severity Reaction Status Date / Time No Known Allergies Allergy Verified 10/23/20 12:43 Physical Exam Vitals: Vital Signs Temp Pulse Pulse Resp BP BP Pulse Ox 10/24/20 09:54 98 F 101 H 17 138/69 95 10/24/20 09:53 95 10/24/20 08:54 98 10/24/20 07:17 98 F 80 18 133/67 93 L 10/24/20 07:15 79 19 10/24/20 04:00 98.1 F 79 19 143/81 92 L 10/24/20 00:05 98.2 F 88 21 127/79 93 L 10/23/20 20:07 94 10/23/20 19:58 98 93 L 10/23/20 19:50 98.3 F 103 H 19 121/77 96 10/23/20 17:52 98 10/23/20 17:00 99.0 F 101 H 22 129/75 95 10/23/20 16:00 112 H 21 127/66 94 L 10/23/20 15:33 98 F 98 16 111/68 91 L 10/23/20 15:00 102 H 24 134/78 95 10/23/20 14:00 101 H 22 122/68 96 10/23/20 13:48 111 H 24 122/68 96 10/23/20 13:00 111 H 23 115/94 95 10/23/20 12:00 108 H 22 121/84 96 10/23/20 11:10 133/79 10/23/20 11:08 97.6 F 123 H 18 133/79 87 L Intake and Output 10/23/20 10/24/20 10/24/20 22:59 06:59 14:59 Intake Total 850 Output Total 775 500 175 Balance -775 -500 675 Intake: Oral 850 Output: Urine 775 500 175 Other: Voiding Method Urinal Urinal Urinal # Bowel Movements 1 Weight 99.79 kg 71 kg Results CBC & Chem 7: 10/24/20 06:04 10/23/20 13:28 Labs: Abnormal Lab Results - Last 24 Hours (Table) 10/23/20 10/23/20 10/23/20 Range/Units 13:28 13:28 13:28 WBC 12.1 H (3.8-10.6) k/uL Neutrophils # (Manual) 11.10 H (1.3-7.7) k/uL Lymphocytes # (Manual) 0.24 L (1.0-4.8) k/uL Metamyelocytes # (Man) 0.36 H (0) k/uL PT 12.4 H (9.0-12.0) sec INR 1.2 H (<1.2) APTT 21.1 L (22.0-30.0) sec D-Dimer 5.72 H (<0.60) mg/L FEU Sodium (137-145) mmol/L Potassium (3.5-5.1) mmol/L Carbon Dioxide (22-30) mmol/L BUN (9-20) mg/dL Glucose (74-99) mg/dL Plasma Lactic Acid Brian (0.7-2.0) mmol/L Magnesium (1.6-2.3) mg/dL AST (17-59) U/L ALT (4-49) U/L Lactate Dehydrogenase (313-618) U/L Troponin I 0.201 H* (0.000-0.034) ng/mL C-Reactive Protein (<1.0) mg/dL Ur Amphetamines Screen (NotDetected) U Methamphetamines Scrn (NotDetected) U Marijuana (THC) Screen (NotDetected) 10/23/20 10/23/20 10/23/20 Range/Units 13:28 13:28 13:44 WBC (3.8-10.6) k/uL Neutrophils # (Manual) (1.3-7.7) k/uL Lymphocytes # (Manual) (1.0-4.8) k/uL Metamyelocytes # (Man) (0) k/uL PT (9.0-12.0) sec INR (<1.2) APTT (22.0-30.0) sec D-Dimer (<0.60) mg/L FEU Sodium 131 L (137-145) mmol/L Potassium 5.2 H (3.5-5.1) mmol/L Carbon Dioxide 16 L (22-30) mmol/L BUN 34 H (9-20) mg/dL Glucose 72 L (74-99) mg/dL Plasma Lactic Acid Brian 5.0 H* (0.7-2.0) mmol/L Magnesium 1.5 L (1.6-2.3) mg/dL AST 242 H (17-59) U/L ALT 170 H (4-49) U/L Lactate Dehydrogenase 1463 H (313-618) U/L Troponin I (0.000-0.034) ng/mL C-Reactive Protein >27.0 H (<1.0) mg/dL Ur Amphetamines Screen Detected H (NotDetected) U Methamphetamines Scrn Detected H (NotDetected) U Marijuana (THC) Screen Detected H (NotDetected) 10/23/20 10/23/20 10/24/20 Range/Units 17:47 21:34 00:44 WBC (3.8-10.6) k/uL Neutrophils # (Manual) (1.3-7.7) k/uL Lymphocytes # (Manual) (1.0-4.8) k/uL Metamyelocytes # (Man) (0) k/uL PT (9.0-12.0) sec INR (<1.2) APTT (22.0-30.0) sec D-Dimer (<0.60) mg/L FEU Sodium (137-145) mmol/L Potassium (3.5-5.1) mmol/L Carbon Dioxide (22-30) mmol/L BUN (9-20) mg/dL Glucose (74-99) mg/dL Plasma Lactic Acid Brian 3.3 H* 4.6 H* 4.0 H* (0.7-2.0) mmol/L Magnesium (1.6-2.3) mg/dL AST (17-59) U/L ALT (4-49) U/L Lactate Dehydrogenase (313-618) U/L Troponin I (0.000-0.034) ng/mL C-Reactive Protein (<1.0) mg/dL Ur Amphetamines Screen (NotDetected) U Methamphetamines Scrn (NotDetected) U Marijuana (THC) Screen (NotDetected) 10/24/20 Range/Units 06:04 WBC 12.9 H (3.8-10.6) k/uL Neutrophils # (Manual) 11.90 H (1.3-7.7) k/uL Lymphocytes # (Manual) 0.39 L (1.0-4.8) k/uL Metamyelocytes # (Man) 0.26 H (0) k/uL PT (9.0-12.0) sec INR (<1.2) APTT (22.0-30.0) sec D-Dimer (<0.60) mg/L FEU Sodium (137-145) mmol/L Potassium (3.5-5.1) mmol/L Carbon Dioxide (22-30) mmol/L BUN (9-20) mg/dL Glucose (74-99) mg/dL Plasma Lactic Acid Brian (0.7-2.0) mmol/L Magnesium (1.6-2.3) mg/dL AST (17-59) U/L ALT (4-49) U/L Lactate Dehydrogenase (313-618) U/L Troponin I (0.000-0.034) ng/mL C-Reactive Protein (<1.0) mg/dL Ur Amphetamines Screen (NotDetected) U Methamphetamines Scrn (NotDetected) U Marijuana (THC) Screen (NotDetected)
[2020-10-24] MEDS: methylPREDNISolone SOD SUCCI 125 MG/2 ML VIAL IV SCH ×3 (11:16→23:08)
[2020-10-24] MEDS: NICOTINE 14MG/24HR PATCH TRANSDERM SCH (11:16)
--- NOTE | 2020-10-24 12:08 | P.CNPUL ---
History of Present Illness Consult date: 10/24/20 Requesting physician: Dedrick Ennis Reason for consult: dyspnea, cough, hypoxemia, pneumonia, abnormal CXR/CT Chief complaint: Fever, cough, shortness of breath History of present illness: This is a 49-year-old with past medical history of COPD, seizures, hypertension, chronic smoker, drug abuse, bipolar disorder and anxiety, who came into the emergency department on 10/23/2020 complaining of couple days of fever, not feeling well, coughing, shortness of breath. Chest x-ray showed bilateral i nfiltrate with small pleural effusion, diffuse interstitial pattern, no evidence of pneumothorax. Heart size was normal. EKG showed sinus tachycardia with a rate of 113 BPM, patient was hypoxic satting at 87%, she was placed on supplemental oxygen, currently he is on 4 L. He was tested for COVID 19 via PCR test twice, and both times he was negative. His d-dimer was elevated on admission at 5.72, and CTA chest was completed showing no acute pulmonary embolism, it did show dense consolidations in the posterior upper lung [place], some patchy density through the right mid and lingular regions and there were posterior lung base and right middle lobe consolidations present. Patient states he also had bouts of diarrhea, nausea and vomiting at home. His white count was 12.1, hemoglobin was 16.1, sodium is 131, potassium is 5.2, chloride is 100, CO2 16, BUN is 34, creatinine was 1.2, lactic acid was elevated at 5.0, magnesium was 1.5, AST was 242, ALT was 170, alkaline phosphatase was 79, LDH is 1463, CRP was greater than 27, troponin was 0.201, his urine drug screen came back positive for amphetamines, methamphetamines, and marijuana. In the emergency department she was started on empiric antibiotics in the form of Rocephin and Zithromax, he was given 2 L and fluid boluses, and currently his IV fluids are going at 130 ML per hour with 0.9 normal saline. He remains on 3 L of oxygen, pulse ox is 95%, afebrile overnight, at times slightly tachycardic, blood pressure is stable, has a congested cough, but no hemoptysis, no chest discomfort. Currently his lactic acid is down to 1.9. His white blood cell count is 12.9, hemoglobin is 13.4. Quite wheezy and congested on today's exam. Review of Systems All systems: negative Constitutional: Reports anorexia, Reports fatigue, Reports fever, Reports lethargy, Reports malaise, Reports weakness, Denies chills Eyes: denies blurred vision, denies pain Ears, nose, mouth and throat: Denies headache, Denies sore throat Cardiovascular: Denies chest pain, Denies shortness of breath Respiratory: Reports cough, Reports dyspnea, Reports respiratory infections, Reports wheezing Gastrointestinal: Reports diarrhea, Reports nausea, Reports vomiting, Denies abdominal pain Musculoskeletal: Denies myalgias Integumentary: Denies pruritus, Denies rash Neurological: Denies numbness, Denies weakness Psychiatric: Denies anxiety, Denies depression Endocrine: Denies fatigue, Denies weight change Past Medical History Past Medical History: COPD Additional Past Medical History / Comment(s): facial reconstruction chronic back pain History of Any Multi-Drug Resistant Organisms: MRSA Date of last positivie culture/infection: 2013 MDRO Source:: knee Past Surgical History: Orthopedic Surgery Additional Past Surgical History / Comment(s): facial reconstruction; right knee Past Anesthesia/Blood Transfusion Reactions: No Reported Reaction Past Psychological History: Anxiety, Bipolar Additional Psychological History / Comment(s): Single. Denies having children. Spent time in correction. Ongoing tobacco use. Injection drug use mostly with cocaine. Denies other significant current substance abuse. The experience. International travel. No animal exposures. Smoking Status: Current every day smoker Past Alcohol Use History: None Reported Additional Past Alcohol Use History / Comment(s): Pt started smoking in 1998 and is a ppd smoker. Past Drug Use History: Cocaine, Heroin, Marijuana, Opiates, Prescription Drug Abuse Additional Drug Use History / Comment(s): Pt states he mostly uses cocaine and methamphetamines. He injects. He states he has quit using and last used about 8-9 days ago. - Past Family History Father Family Medical History: Myocardial Infarction ([place]) Additional Family Medical History / Comment(s): Father of a [place] in his early 50s. Mother Family Medical History: No Reported History Medications and Allergies Home Medications Medication Instructions Recorded Confirmed Type No Known Home Medications 10/23/20 10/23/20 History Allergies Allergy/AdvReac Type Severity Reaction Status Date / Time No Known Allergies Allergy Verified 10/23/20 12:43 Physical Exam Vitals: Vital Signs Temp Pulse Pulse Resp BP BP Pulse Ox 10/24/20 09:54 98 F 101 H 17 138/69 95 10/24/20 09:53 95 10/24/20 08:54 98 10/24/20 07:17 98 F 80 18 133/67 93 L 10/24/20 07:15 79 19 10/24/20 04:00 98.1 F 79 19 143/81 92 L 10/24/20 00:05 98.2 F 88 21 127/79 93 L 10/23/20 20:07 94 10/23/20 19:58 98 93 L 10/23/20 19:50 98.3 F 103 H 19 121/77 96 10/23/20 17:52 98 10/23/20 17:00 99.0 F 101 H 22 129/75 95 10/23/20 16:00 112 H 21 127/66 94 L 10/23/20 15:33 98 F 98 16 111/68 91 L 10/23/20 15:00 102 H 24 134/78 95 10/23/20 14:00 101 H 22 122/68 96 10/23/20 13:48 111 H 24 122/68 96 10/23/20 13:00 111 H 23 115/94 95 10/23/20 12:00 108 H 22 121/84 96 Intake and Output 10/23/20 10/24/20 10/24/20 22:59 06:59 14:59 Intake Total 850 Output Total 775 500 175 Balance -775 -500 675 Intake: Oral 850 Output: Urine 775 500 175 Other: Voiding Method Urinal Urinal Urinal # Bowel Movements 1 Weight 99.79 kg 71 kg GENERAL EXAM: Alert, 49-year-old male on 3 L of oxygen with pulse ox of 95%, has occasional congested cough, comfortable in no apparent distress. HEAD: Normocephalic/atraumatic. EYES: Normal reaction of pupils, equal size. Conjunctiva pink, sclera white. NOSE: Clear with pink turbinates. THROAT: No erythema or exudates. NECK: No masses, no JVD, no thyroid enlargement, no adenopathy. CHEST: No chest wall deformity. Symmetrical expansion. LUNGS: Equal air entry with diffuse wheezes CVS: Regular rate and rhythm, normal S1 and S2, no gallops, no murmurs, no rubs ABDOMEN: Soft, nontender. No hepatosplenomegaly, normal bowel sounds, no guarding or rigidity. EXTREMITIES: No clubbing, no edema, no cyanosis, 2+ pulses and upper and lower extremities. MUSCULOSKELETAL: Muscle strength and tone normal. SPINE: No scoliosis or deformity SKIN: No rashes, patient has multiple tattoos on his arms, abdomen, chest, legs CENTRAL NERVOUS SYSTEM: Alert and oriented -3. No focal deficits, tone is norm al in all 4 extremities. PSYCHIATRIC: Alert and oriented -3. Appropriate affect. Intact judgment and insight. Results - Laboratory Findings CBC and BMP: 10/24/20 06:04 10/23/20 13:28 PT/INR, D-dimer PT 11.0 sec (9.0-12.0) 10/24/20 06:04 INR 1.0 (<1.2) 10/24/20 06:04 D-Dimer 5.72 mg/L FEU (<0.60) H 10/23/20 13:28 Abnormal lab findings: Abnormal Labs 10/23/20 10/23/20 10/23/20 13:28 13:28 13:28 WBC 12.1 H Neutrophils # (Manual) 11.10 H Lymphocytes # (Manual) 0.24 L Metamyelocytes # (Man) 0.36 H PT 12.4 H INR 1.2 H APTT 21.1 L D-Dimer 5.72 H Sodium Potassium Carbon Dioxide BUN Glucose Plasma Lactic Acid Brian Magnesium AST ALT Lactate Dehydrogenase Troponin I 0.201 H* C-Reactive Protein Ur Amphetamines Screen U Methamphetamines Scrn U Marijuana (THC) Screen 10/23/20 10/23/20 10/23/20 13:28 13:28 13:44 WBC Neutrophils # (Manual) Lymphocytes # (Manual) Metamyelocytes # (Man) PT INR APTT D-Dimer Sodium 131 L Potassium 5.2 H Carbon Dioxide 16 L BUN 34 H Glucose 72 L Plasma Lactic Acid Brian 5.0 H* Magnesium 1.5 L AST 242 H ALT 170 H Lactate Dehydrogenase 1463 H Troponin I C-Reactive Protein >27.0 H Ur Amphetamines Screen Detected H U Methamphetamines Scrn Detected H U Marijuana (THC) Screen Detected H 10/23/20 10/23/20 10/24/20 17:47 21:34 00:44 WBC Neutrophils # (Manual) Lymphocytes # (Manual) Metamyelocytes # (Man) PT INR APTT D-Dimer Sodium Potassium Carbon Dioxide BUN Glucose Plasma Lactic Acid Brian 3.3 H* 4.6 H* 4.0 H* Magnesium AST ALT Lactate Dehydrogenase Troponin I C-Reactive Protein Ur Amphetamines Screen U Methamphetamines Scrn U Marijuana (THC) Screen 10/24/20 06:04 WBC 12.9 H Neutrophils # (Manual) 11.90 H Lymphocytes # (Manual) 0.39 L Metamyelocytes # (Man) 0.26 H PT INR APTT D-Dimer Sodium Potassium Carbon Dioxide BUN Glucose Plasma Lactic Acid Brian Magnesium AST ALT Lactate Dehydrogenase Troponin I C-Reactive Protein Ur Amphetamines Screen U Methamphetamines Scrn U Marijuana (THC) Screen - Diagnostic Findings Chest x-ray: report reviewed, image reviewed CT scan - chest: report reviewed, image reviewed Additional studies: EKG reviewed, ultrasound of the abdomen reviewed, echocardiogram reviewed Assessment and Plan Plan: Assessment: #1. Acute hypoxic respiratory failure related to acute pneumonia, with the poss ibility of atypical versus aspiration related pneumonia. COVID-19 PCR was negative 2. CTA chest was negative for evidence of pulmonary embolism, it did show dense consolidations bilaterally #2. Elevated d-dimer, CTA chest was negative for any evidence for pulmonary embolism, lower extremity Dopplers are pending at this time #3. Lactic acidosis related to pneumonia and sepsis, improved with IV hydration #4. History of drug abuse, and patient admits to methamphetamine, and marijuana use. Urine drug screen is positive for amphetamine, methamphetamine, and marijuana. Does have previous drug use history with cocaine, heroin, opiates, and prescription drugs #5. History of smoking, chronic and ongoing #6. Vital disorder #7. Anxiety #8. History of MRSA infection in the right knee #9. History of COPD, not oxygen dependent #10. History of seizures, he is not on any chronic seizure medications Plan: We'll continue with Zosyn and vancomycin We will try to obtain a sputum culture Chest x-ray and CTA chest reviewed, the possibility of aspiration is considered We will add IV steroids and nebulized bronchodilators Maintaining safety precautions, We'll decrease the Lovenox dose to 40 mg twice daily, CTA chest did not show evidence of pulmonary embolism, we'll check lower extremity Dopplers, if that's negative we can drop it down to prophylactic dose We'll continue to follow I performed a history & physical examination of the patient and discussed their management with my nurse practitioner, Arlin Alvares. I reviewed the nurse practitioner's note and agree with the documented findings and plan of care. Lung sounds are positive for diffuse wheezes throughout the lung [place]. The findings and the impression was discussed with the patient. I attest to the documentation by the nurse practitioner. Time with Patient: Greater than 30
[2020-10-24] MEDS: ASPIRIN 81 MG PO SCH (13:51)
--- NOTE | 2020-10-24 13:55 | P.CRDCN ---
History of Present Illness History of present illness: HISTORY OF PRESENTING ILLNESS This is a pleasant 49-year-old with past medical history significant for meth abuse, marijuana abuse, COPD, seizure disorder, hypertension, tobacco abuse, bipolar disorder who presents secondary to 2 days of cough, shortness breath. Patient appears in a fair amount of distress currently, apparently on CIWA protocol and admits she has severe anxiety. He is unsure if she is actually been having any fevers or chills recently. 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 He admits to some atypical chest pain which is worse when he takes a deep breath and area he was found to be hypoxic with oxygen saturation in the 80s, negative for COVID-19 2, d-dimer elevated at 5 and a CTA PE protocol showed no pulmonary embolism and consolidation consistent with pneumonia. He admits he is using meth however no IV drug abuse, previously used some however not in the last few months. He admits to chronic back pain since his back surgery and that the back pain is his main concern right now as well as his shortness breath. He initially had lactic acidosis at 5.0, currently improved to 1.9 today. 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 Denies any history of PCI or stents. EKG shows sinus tachycardia, normal axis, nonspecific upsloping ST depressions in the lateral leads. Echo 10/23/2020 shows EF 50-55%, trace tricuspid regurgitation, mild LVH. Initial troponin was 0.2 however no repeat was performed. REVIEW OF SYSTEMS At the time of my exam: CONSTITUTIONAL: Denies fever or chills. CARDIOVASCULAR: +chest pain, +shortness of breath, no orthopnea, PND or palpitations. RESPIRATORY: +cough. GASTROINTESTINAL: Denies abdominal pain, diarrhea, constipation, +nausea, no vomiting. MUSCULOSKELETAL: Denies myalgias. NEUROLOGIC: Denies numbness, tingling or weakness. ENDOCRINE: Denies fatigue, weight change, polydipsia or polyurina. GENITOURINARY: Denies burning, hematuria or urgency with micturation. HEMATOLOGIC: Denies history of anemia or bleeding. PHYSICAL EXAMINATION Vital signs reviewed. CONSTITUTIONAL: Ill appearing, diaphoretic, appears may be withdrawing, poor insight and recall of medical problems HEENT: Head is normocephalic. Pupils are equal, round. Sclerae anicteric. Mucous membranes of the mouth are moist. No JVD. No carotid bruit. CHEST EXAMINATION: Bilateral rhonchi. HEART EXAMINATION: Regular rate and rhythm. S1, S2 heard. No murmurs, gallops or rub. ABDOMEN: Soft, nontender. Positive bowel sounds. EXTREMITIES: 2+ peripheral pulses, no lower extremity edema and no calf tenderness. NEUROLOGIC EXAMINATION: Patient is awake, alert and oriented x3. ASSESSMENT 1. Type II non-STEMI 2. History of meth abuse, marijuana abuse, tobacco abuse 3. COPD 4. Pneumonia 5. Sepsis 6. Sinus tachycardia 7. Elevated d-dimer PLAN Patient's main presentation appears consistent with pneumonia. [facility] Patient denying any consistent chest pain and chest pain appears atypical and pleuritic likely related to pneumonia. Echo shows preserved ejection fraction with low normal EF 50-55%. We will get repeat troponin for completeness sake. Continue adequate therapy with aspirin, Lipitor and metoprolol. Unclear if patient is good interventional candidate. Continue to monitor. Past Medical History Past Medical History: COPD Additional Past Medical History / Comment(s): facial reconstruction chronic back pain History of Any Multi-Drug Resistant Organisms: MRSA Date of last positivie culture/infection: 2013 MDRO Source:: knee Past Surgical History: Orthopedic Surgery Additional Past Surgical History / Comment(s): facial reconstruction; right knee Past Anesthesia/Blood Transfusion Reactions: No Reported Reaction Past Psychological History: Anxiety, Bipolar Additional Psychological History / Comment(s): Single. Denies having children. Spent time in skilled nursing. Ongoing tobacco use. Injection drug use mostly with cocaine. Denies other significant current substance abuse. The experience. International travel. No animal exposures. Smoking Status: Current every day smoker Past Alcohol Use History: None Reported Additional Past Alcohol Use History / Comment(s): Pt started smoking in 1998 and is a ppd smoker. Past Drug Use History: Cocaine, Heroin, Marijuana, Opiates, Prescription Drug Abuse Additional Drug Use History / Comment(s): Pt states he mostly uses cocaine and methamphetamines. He injects. He states he has quit using and last used about 8-9 days ago. - Past Family History Father Family Medical History: Myocardial Infarction ([place]) Additional Family Medical History / Comment(s): Father of a [place] in his early 50s. Mother Family Medical History: No Reported History Medications and Allergies Home Medications Medication Instructions Recorded Confirmed Type No Known Home Medications 10/23/20 10/23/20 History Allergies Allergy/AdvReac Type Severity Reaction Status Date / Time No Known Allergies Allergy Verified 10/23/20 12:43 Physical Exam Vitals: Vital Signs Temp Pulse Pulse Resp BP BP Pulse Ox 10/24/20 12:26 86 10/24/20 12:24 101 H 17 10/24/20 12:17 90 10/24/20 09:54 98 F 101 H 17 138/69 95 10/24/20 09:53 95 10/24/20 08:54 98 10/24/20 07:17 98 F 80 18 133/67 93 L 10/24/20 07:15 79 19 10/24/20 04:00 98.1 F 79 19 143/81 92 L 10/24/20 00:05 98.2 F 88 21 127/79 93 L 10/23/20 20:07 94 10/23/20 19:58 98 93 L 10/23/20 19:50 98.3 F 103 H 19 121/77 96 10/23/20 17:52 98 10/23/20 17:00 99.0 F 101 H 22 129/75 95 10/23/20 16:00 112 H 21 127/66 94 L 10/23/20 15:33 98 F 98 16 111/68 91 L 10/23/20 15:00 102 H 24 134/78 95 10/23/20 14:00 101 H 22 122/68 96 10/23/20 13:48 111 H 24 122/68 96 Intake and Output 10/23/20 10/24/20 10/24/20 22:59 06:59 14:59 Intake Total 1450 Output Total 775 500 175 Balance -775 -500 1275 Intake: Oral 1450 Output: Urine 775 500 175 Other: Voiding Method Urinal Urinal Urinal # Bowel Movements 1 Weight 99.79 kg 71 kg Results 10/24/20 06:04 10/23/20 13:28 Cardiac Enzymes 10/23/20 10/23/20 Range/Units 13:28 13:28 AST 242 H (17-59) U/L Lactate Dehydrogenase 1463 H (313-618) U/L Troponin I 0.201 H* (0.000-0.034) ng/mL Coagulation 10/23/20 10/24/20 Range/Units 13:28 06:04 PT 12.4 H 11.0 (9.0-12.0) sec APTT 21.1 L (22.0-30.0) sec CBC 10/23/20 10/24/20 Range/Units 13:28 06:04 WBC 12.1 H 12.9 H (3.8-10.6) k/uL RBC 5.20 4.48 (4.30-5.90) m/uL Hgb 16.1 13.4 (13.0-17.5) gm/dL Hct 45.1 39.6 (39.0-53.0) % Plt Count 198 194 (150-450) k/uL Comprehensive Metabolic Panel 10/23/20 Range/Units 13:28 Sodium 131 L (137-145) mmol/L Potassium 5.2 H (3.5-5.1) mmol/L Chloride 100 (98-107) mmol/L Carbon Dioxide 16 L (22-30) mmol/L BUN 34 H (9-20) mg/dL Creatinine 1.21 (0.66-1.25) mg/dL Glucose 72 L (74-99) mg/dL Calcium 8.8 (8.4-10.2) mg/dL AST 242 H (17-59) U/L ALT 170 H (4-49) U/L Alkaline Phosphatase 79 (38-126) U/L Total Protein 7.0 (6.3-8.2) g/dL Albumin 3.8 (3.5-5.0) g/dL Current Medications Generic Name Dose Route Start Last Admin Trade Name Freq PRN Reason Stop Dose Admin Acetaminophen 650 mg 10/23/20 14:43 Acetaminophen Tab 325 Mg Tab PO Q6HR PRN Mild Pain or Fever > 100.5 Albuterol/Ipratropium 3 ml 10/24/20 12:00 10/24/20 12:14 Ipratropium-Albuterol 3 Ml Neb INHALATION 3 ml RT-QID ISHMAEL Administration Albuterol/Ipratropium 3 ml 10/24/20 10:24 Ipratropium-Albuterol 3 Ml Neb INHALATION RT-Q2H PRN Shortness Of Breath Or Wheezing Enoxaparin Sodium 40 mg 10/24/20 21:00 Enoxaparin 40 Mg/0.4 Ml Syringe SQ Q12HR ISHMAEL Famotidine 20 mg 10/25/20 09:00 Famotidine 20 Mg Tab PO DAILY ISHMAEL Sodium Chloride 1,000 mls @ 130 mls/hr 10/23/20 14:30 10/24/20 11:12 Saline 0.9% IV Not Given .Q7H42M ISHMAEL Piperacillin Sod/Tazobactam 100 mls @ 25 mls/hr 10/23/20 17:00 10/24/20 08:54 Sod 3.375 gm/ Sodium Chloride IVPB 25 mls/hr Q8H ISHMAEL Administration Vancomycin HCl 1,500 mg/ 250 mls @ 125 mls/hr 10/24/20 06:00 10/24/20 06:22 Sodium Chloride IVPB 125 mls/hr Q12H ISHMAEL Administration Lorazepam 1 mg 10/23/20 20:35 10/23/20 21:15 Lorazepam 2 Mg/Ml Inj IV 1 mg Q2HR PRN Administration CIWA 8 or 9 Lorazepam 1 mg 10/23/20 20:35 10/24/20 08:53 Lorazepam 2 Mg/Ml Inj IV 1 mg Q1HR PRN Administration CIWA 10 to 15 Lorazepam 2 mg 10/23/20 20:35 Lorazepam 2 Mg/Ml Inj IV 10/25/20 20:36 Q10M PRN CIWA 16 or higher Magnesium Oxide 400 mg 10/23/20 21:00 10/24/20 08:53 Magnesium Oxide 400 Mg Tab PO 400 mg BID ISHMAEL Administration Methylprednisolone Sodium Succinate 60 mg 10/24/20 12:00 10/24/20 11:16 Methylprednisolone Sod Succi 125 Mg/2 Ml Vial IV 60 mg Q6HR ISHMAEL Administration Naloxone HCl 0.2 mg 10/23/20 14:43 Naloxone 0.4 Mg/Ml 1 Ml Vial IV Q2M PRN Opioid Reversal Nicotine 1 patch 10/24/20 12:00 10/24/20 11:16 Nicotine 14mg/24hr Patch TRANSDERM 1 patch DAILY ISHMAEL Administration Thiamine HCl 100 mg 10/24/20 09:00 10/24/20 08:53 Thiamine 100 Mg Tab PO 100 mg BID-W/MEALS ISHMAEL Administration Intake and Output 09/17/21 09/18/21 09/18/21 22:59 06:59 14:59 Intake Total 1450 Output Total 775 500 175 Balance -775 500 1275 Intake: Oral 1450 Output: Urine 775 500 175 Other: Voiding Method Urinal Urinal Urinal # Bowel Movements 1 Weight 99.79 kg 71 kg 10/24/20 06:04 10/23/20 13:28
--- NOTE | 2020-10-24 13:58 | US ---
EXAMINATION TYPE: US venous doppler duplex LE DATE OF EXAM: 10/24/2020 11:34 AM COMPARISON: NONE CLINICAL HISTORY: elevated d-dimer. SIDE PERFORMED: Bilateral TECHNIQUE: The lower extremity deep venous system is examined utilizing real time linear array sonog liliane with graded compression, doppler sonography and color-flow sonography. VESSELS IMAGED: Common Femoral Vein Deep Femoral Vein Greater Saphenous Vein * Femoral Vein Popliteal Vein Small Saphenous Vein * Proximal Calf Veins (* superficial vessels) Right Leg: Negative for DVT Left Leg: Negative for DVT IMPRESSION: No evidence for acute deep vein thrombosis in the imaged deep veins of the bilateral lowe r extremities.
[2020-10-24] MEDS: ENOXAPARIN 40 MG/0.4 ML SYRINGE SQ SCH (20:23)
[2020-10-24] MEDS: METOPROLOL TARTRATE 12.5 MG TAB PO SCH (20:24)
[2020-10-24 23:53] LABS: Chol/HDL Ratio 3.82; LDL Cholesterol,Calculated 7.2 mg/dL (0.0-131.0); VLDL Calculation 54.8 mg/dL (5.00-40.00)
[2020-10-25] MEDS: SODIUM CHLORIDE 0.9% 1,000 ML IV SCH ×3 (06:19→20:00)
[2020-10-25] MEDS: THIAMINE 100 MG TAB PO SCH ×2 (06:19→16:29)
[2020-10-25] MEDS: VANCOMYCIN 1,500 MG in SODIUM CHLORIDE 0.9% 250 ML IVPB SCH ×3 (06:19→23:16)
[2020-10-25] MEDS: methylPREDNISolone SOD SUCCI 125 MG/2 ML VIAL IV SCH ×4 (06:19→23:16)
[2020-10-25 06:31] LABS: HCT 36.4 % (39.0-53.0); HGB 11.7 gm/dL (13.0-17.5); MCH 28.8 pg (25.0-35.0); MCHC 32.2 g/dL (31.0-37.0); MCV 89.4 fL (80.0-100.0); Mean Platelet Volume 8.3; Platelet Count 203 k/uL (150-450); RBC 4.07 m/uL (4.30-5.90); RDW 13.2 % (11.5-15.5); WBC 12.3 k/uL (3.8-10.6)
[2020-10-25 06:37] LABS: ALT 74 U/L (4-49); AST 59 U/L (17-59); African American GFR (CKD) >90 (>60 ml/min/1.73 sqM); Albumin 2.7 g/dL (3.5-5.0); Alkaline Phosphatase 79 U/L (38-126); Anion Gap 9 mmol/L; Blood Urea Nitrogen 17 mg/dL (9-20); Calcium 8.4 mg/dL (8.4-10.2); Carbon Dioxide 19 mmol/L (22-30); Chloride 113 mmol/L (98-107); Glucose 185 mg/dL (74-99); Non-African American GFR(CKD) >90 (>60 ml/min/1.73 sqM); Sodium 141 mmol/L (137-145); Total Bilirubin 0.4 mg/dL (0.2-1.3); Total Protein 5.5 g/dL (6.3-8.2)
[2020-10-25] MEDS: IPRATROPIUM-ALBUTEROL 3 ML NEB INHALATION SCH ×4 (07:58→19:27)
[2020-10-25] MEDS: PIPERACILLIN-TAZOBACTAM 3.375 GM in SODIUM CHLORIDE 0.9% 100 ML IVPB SCH ×2 (08:16→16:29)
[2020-10-25] MEDS: FAMOTIDINE 20 MG TAB PO SCH (08:17)
[2020-10-25] MEDS: ASPIRIN 81 MG PO SCH (08:17)
[2020-10-25] MEDS: ATORVASTATIN 20 MG TAB PO SCH (08:17)
[2020-10-25] MEDS: ENOXAPARIN 40 MG/0.4 ML SYRINGE SQ SCH (08:17)
[2020-10-25] MEDS: METOPROLOL TARTRATE 12.5 MG TAB PO SCH ×2 (08:17→20:16)
[2020-10-25] MEDS: MAGNESIUM OXIDE 400 MG TAB PO SCH ×2 (08:17→20:00)
[2020-10-25] MEDS: NICOTINE 14MG/24HR PATCH TRANSDERM SCH (08:18)
[2020-10-25] MEDS ORDERED: NICOTINE 14MG/24HR PATCH TRANSDERM SCH (09:00)
--- NOTE | 2020-10-25 11:39 | P.PN ---
Subjective Progress Note Date: 10/25/20 Principal diagnosis: severe hypoxia and acute respiratory failure, bilateral pneumonia, elevated troponin with non-ST NJ. HISTORY OF PRESENT ILLNESS 49-year-old male one of pupil clinic patient with past medical history of hypertension, COPD, seizure, bipolar and anxiety attacks, chronic smoking and chronic drug use who was in the hospital last over a year ago for worsening infection of the time was treated done well. Patient has not seen anybody for over a year has not taking any of his medication. 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 Patient also continue to use marijuana along with methamphetamine along with benzodiazepine he is not using cocaine or heroine lately Still smoking over a pack a day, He has been not feeling well for over 1 week with worsening shortness of breath and dyspnea along with cough and worsening shortness of breath with minimum exertion. Patient ended up coming to the emergency department at [facility] on 1complaining of dyspnea, cough, vomiting and diarrhea has been having fever and chills as well, preventative to 19 testing was negative, chest x-ray showed bilateral infiltrate with multifocal pneumonia,his labs showed elevated lactic acid 4.6 with troponin of 0.201 drug screen was positive for amphetamine, methamphetamine and marijuana. patient was started on O2 did not require any BiPAP started on nebulizer management along with steroid vancomycin and Zosyn with his d-dimer been elevated patient was started on heparin drip initially, CT of the lung did not show any embolism but just infiltrate we will stop anticoagulation is due DVT prophylaxis at this point patient is not having any significant anginal chest pain but is having chest wall pain as well. REVIEW OF SYSTEMS Constitutional: No fever, no chills, no night sweats. No weight change. No weakness, fatigue or lethargy. No daytime sleepiness. EENT: No headache. No blurred vision or double vision, no loss of vision. No loss of Hearing, no ringing in the ears, no dizziness. No nasal drainage or congestion. No epistaxis. No sore throat. Lungs: positive shortness of breath, cough, wheezes, dyspnea with exertion. Cardiovascular: positive chest wall pain, no lower extremity edema. No palpitations. positive PND and orthopnea. No lightheadedness or dizziness. No syncopal episodes. Abdominal: mild abdominal pain with nausea vomiting and diarrhea or constipation no tarry stool mild loss of appetite. Genitourinary: No dysuria, increased frequency, urgency. No urinary retention. Musculoskeletal: No myalgias. No muscle weakness, no gait dysfunction, no frequent falls. No back pain. No neck pain. Integumentary: No wounds, no lesions. No rash or pruritus. No unusual bruising. No change in hair or nails. Neurologic: No aphasia. No facial droop. No change in mentation. No head injury. No headache. No paralysis. No paresthesia. Psychiatric: No depression. No anxiety. No mood swings. Endocrine: No abnormal blood sugars. No weight change. No excessive sweating or thirst. No cold intolerance. 10/25: Patient was seen cardiology was diagnosed with non-ST NJ, echocardiogram still showing good ejection fraction at this point, no intervention schedule at this point till infection is a clear patient might benefit from medical management till his bilateral pneumonia is a clear may be testing as an outpatient specially patient is asymptomatic with his ischemic cardiomyopathy or non-ST NJ this time. PHYSICAL EXAMINATION Gen: This is 49-year-old laying comfortably still holding his chest having s light shortness of breath and mild tremor does not look in any respiratory distress HEENT: Head is atraumatic, normocephalic. Pupils equal, round. Sclerae is anicteric. NECK: Supple. No JVD. No lymphadenopathy. No thyromegaly. LUNGS: positive chest wall pain especially in the left side, positive crackles in the bases worsening of the right than the left side HEART: Regular rate and rhythm. No murmur. ABDOMEN: Soft. Bowel sounds are present. No masses. No tenderness. EXTREMITIES: No pedal edema. No calf tenderness. patient has bugs bite all over his body NEUROLOGICAL: Patient is awake, mild irritability, alert and oriented x3. Cranial nerves 2 through 12 are grossly intact. ASSESSMENT AND PLAN 1. acute respiratory failure: Secondary to bilateral pneumonia and possible fluid overload, possible aspiration as well especially with his drug use at's current condition, continue to use higher flow oxygen if needed BiPAP, consult pulmonary continue patient onantibiotics, steroid, oxygen and better management for aspiration pneumonia. 2. COPD excessive patient: Will continue patient on steroid along with updraft with DuoNeb and Pulmicort. Slight improvement. 3. aspiration pneumonia and sepsis: Still on Vanco and Zosyn seems to respond very well. 4. elevated troponin with a possible left non-ST NJ: Was seen cardiology review his echocardiogram showed well-preserved ejection fraction with slight hypertrophic left ventricle most likely consistent with effect of his blood pressure. With patient's current symptom should clear the infection at this po int before thinking about intervention specially patient is not having any symptoms. 5. elevated blood pressure: Patient was restarted back on metoprolol 12.5 mg twice a day if the blood pressure is holding well will add smaller dose of DEION inhibitor. 6. mild tremor and irritability: Most likely from withdrawal from drugs, patient will be watch carefully use lorazepam on an as-needed basis to help him out event patient looks and act like somebody drink regularly. 7. chronic smoking: Start patient on nicotine patch at this point. 8. CODE STATUS: Full code. Objective - Vital Signs Vital signs: Vital Signs Temp 98 F 10/25/20 11:29 Pulse 67 10/25/20 11:31 Resp 16 10/25/20 11:31 BP 133/67 10/25/20 11:29 Pulse Ox 96 10/25/20 11:29 Intake & Output 10/24/20 10/25/20 10/25/20 18:59 06:59 18:59 Intake Total 2450 Output Total 575 750 Balance 1875 -750 Weight 72 kg Intake: Oral 2450 Output: Urine 575 750 Other: Voiding Method Urinal Urinal Urinal # Bowel Movements 1 - Labs CBC & Chem 7: 10/25/20 05:57 10/25/20 05:57 Labs: Abnormal Lab Results - Last 24 Hours (Table) 10/24/20 10/24/20 10/24/20 Range/Units 06:04 15:35 15:35 WBC (3.8-10.6) k/uL RBC (4.30-5.90) m/uL Hgb (13.0-17.5) gm/dL Hct (39.0-53.0) % Chloride (98-107) mmol/L Carbon Dioxide (22-30) mmol/L Glucose (74-99) mg/dL ALT (4-49) U/L Troponin I 0.064 H* (0.000-0.034) ng/mL Total Protein (6.3-8.2) g/dL Albumin (3.5-5.0) g/dL Triglycerides 274.0 H (0.0-149.0) mg/dL VLDL Cholesterol, Calc 54.80 H (5.00-40.00) mg/dL HDL Cholesterol 22.0 L (40.0-60.0) mg/dL Procalcitonin 28.65 H (0.02-0.09) ng/mL 10/25/20 10/25/20 Range/Units 05:57 05:57 WBC 12.3 H (3.8-10.6) k/uL RBC 4.07 L (4.30-5.90) m/uL Hgb 11.7 L (13.0-17.5) gm/dL Hct 36.4 L (39.0-53.0) % Chloride 113 H (98-107) mmol/L Carbon Dioxide 19 L (22-30) mmol/L Glucose 185 H (74-99) mg/dL ALT 74 H (4-49) U/L Troponin I (0.000-0.034) ng/mL Total Protein 5.5 L (6.3-8.2) g/dL Albumin 2.7 L (3.5-5.0) g/dL Triglycerides (0.0-149.0) mg/dL VLDL Cholesterol, Calc (5.00-40.00) mg/dL HDL Cholesterol (40.0-60.0) mg/dL Procalcitonin (0.02-0.09) ng/mL Microbiology - Last 24 Hours (Table) 10/24/20 06:04 Blood Culture - Preliminary Blood No Growth after 24 hours 10/23/20 15:30 Gram Stain - Preliminary Sputum Sputum Culture - Preliminary 10/23/20 13:10 Blood Culture - Preliminary Blood No Growth after 24 hours
[2020-10-25 11:52] LABS: Glucose,Whole Blood 127 mg/dL (75-99)
[2020-10-25] MEDS: INSULIN ASPART (NovoLOG) 100 UNIT/ML VIAL SQ SCH ×3 (11:52→21:01)
--- NOTE | 2020-10-25 14:11 | P.PN ---
Subjective Progress Note Date: 10/25/20 Principal diagnosis: Acute hypoxic respiratory failure secondary to pneumonia. This is a 49-year-old with past medical history of COPD, seizures, hypertension, chronic smoker, drug abuse, bipolar disorder and anxiety, who came into the emergency department on 10/23/2020 complaining of couple days of fever, not feeling well, coughing, shortness of breath. Chest x-ray showed bilateral infiltrate with small pleural effusion, diffuse interstitial pattern, no evidence of pneumothorax. Heart size was normal. EKG showed sinus tachycardia with a rate of 113 BPM, patient was hypoxic satting at 87%, she was placed on supplemental oxygen, currently he is on 4 L. He was tested for COVID 19 via PCR test twice, and both times he was negative. His d-dimer was elevated on admission at 5.72, and CTA chest was completed showing no acute pulmonary embolism, it did show dense consolidations in the posterior upper lung paris, some patchy density through the right mid and lingular regions and there were posterior lung base and right middle lobe consolidations present. Patient st ates he also had bouts of diarrhea, nausea and vomiting at home. His white count was 12.1, hemoglobin was 16.1, sodium is 131, potassium is 5.2, chloride is 100, CO2 16, BUN is 34, creatinine was 1.2, lactic acid was elevated at 5.0, magnesium was 1.5, AST was 242, ALT was 170, alkaline phosphatase was 79, LDH is 1463, CRP was greater than 27, troponin was 0.201, his urine drug screen came back positive for amphetamines, methamphetamines, and marijuana. In the emergency department she was started on empiric antibiotics in the form of Rocephin and Zithromax, he was given 2 L and fluid boluses, and currently his IV fluids are going at 130 ML per hour with 0.9 normal saline. He remains on 3 L of oxygen, pulse ox is 95%, afebrile overnight, at times slightly tachycardic, blood pressure is stable, has a congested cough, but no hemoptysis, no chest discomfort. Currently his lactic acid is down to 1.9. His white blood cell count is 12.9, hemoglobin is 13.4. Quite wheezy and congested on today's exam. Reevaluated today on 10/25/2020, patient is feeling better today, breathing easier. Patient was admitted and we saw him yesterday on consultation, and I felt that the patient has bilateral pneumonia, most likely secondary to aspiration. Patient was placed on antibiotics in the form of vancomycin and Zosyn, he was also placed on bronchodilators and IV Solu-Medrol. Wilbraham that there he has some significant component of COPD with acute exacerbation. Again the patient is feeling better today, breathing easier. Afebrile, vital signs are stable, he is on O2 at 2 L with O2 sat showed 96%. CBC count is 12.3 hemoglobin is 11.7, lites are normal renal profile is normal. Blood cultures are negative so far, and sputum cultures are nondiagnostic. Objective - Vital Signs Vital signs: Vital Signs Temp 98 F 10/25/20 11:29 Pulse 96 10/25/20 11:36 Resp 16 10/25/20 11:31 BP 133/67 10/25/20 11:29 Pulse Ox 96 10/25/20 11:29 Intake & Output 10/24/20 10/25/20 10/25/20 18:59 06:59 18:59 Intake Total 2450 Output Total 575 750 Balance 1875 -750 Weight 72 kg Intake: Oral 2450 Output: Urine 575 750 Other: Voiding Method Urinal Urinal Urinal # Bowel Movements 1 - Exam GENERAL EXAM: Revealed a 49-year-old white male on 2 L nasal cannula in no distress. HEAD: Normocephalic/atraumatic. HEENT: PERRLA, EOMI, nonicteric, no neck masses, no JVD, no stridor. CHEST: No chest wall deformity. Symmetrical expansion. LUNGS: Diminished breath sounds at the bases with minimal crackles, much better sounding lungs today compared to yesterday. Rhonchi and no wheezes. CVS: Regular rate and rhythm, normal S1 and S2, no gallops, no murmurs, no rubs ABDOMEN: Soft, nontender. No hepatosplenomegaly, normal bowel sounds, no guarding or rigidity. EXTREMITIES: No clubbing, no edema, no cyanosis, 2+ pulses and upper and lower extremities. MUSCULOSKELETAL: Muscle strength and tone normal. SKIN: No rashes, patient has multiple tattoos on his arms, abdomen, chest, legs CENTRAL NERVOUS SYSTEM: Alert and oriented 3 no gross focal deficits. PSYCHIATRIC: Normal mood affect and normal mental status exam. - Labs CBC & Chem 7: 10/25/20 05:57 10/25/20 05:57 Labs: Abnormal Lab Results - Last 24 Hours (Table) 10/24/20 10/24/20 10/24/20 Range/Units 06:04 15:35 15:35 WBC (3.8-10.6) k/uL RBC (4.30-5.90) m/uL Hgb (13.0-17.5) gm/dL Hct (39.0-53.0) % Chloride (98-107) mmol/L Carbon Dioxide (22-30) mmol/L Glucose (74-99) mg/dL POC Glucose (mg/dL) (75-99) mg/dL ALT (4-49) U/L Troponin I 0.064 H* (0.000-0.034) ng/mL Total Protein (6.3-8.2) g/dL Albumin (3.5-5.0) g/dL Triglycerides 274.0 H (0.0-149.0) mg/dL VLDL Cholesterol, Calc 54.80 H (5.00-40.00) mg/dL HDL Cholesterol 22.0 L (40.0-60.0) mg/dL Procalcitonin 28.65 H (0.02-0.09) ng/mL 10/25/20 10/25/20 10/25/20 Range/Units 05:57 05:57 11:45 WBC 12.3 H (3.8-10.6) k/uL RBC 4.07 L (4.30-5.90) m/uL Hgb 11.7 L (13.0-17.5) gm/dL Hct 36.4 L (39.0-53.0) % Chloride 113 H (98-107) mmol/L Carbon Dioxide 19 L (22-30) mmol/L Glucose 185 H (74-99) mg/dL POC Glucose (mg/dL) 127 H (75-99) mg/dL ALT 74 H (4-49) U/L Troponin I (0.000-0.034) ng/mL Total Protein 5.5 L (6.3-8.2) g/dL Albumin 2.7 L (3.5-5.0) g/dL Triglycerides (0.0-149.0) mg/dL VLDL Cholesterol, Calc (5.00-40.00) mg/dL HDL Cholesterol (40.0-60.0) mg/dL Procalcitonin (0.02-0.09) ng/mL Microbiology - Last 24 Hours (Table) 10/24/20 06:04 Blood Culture - Preliminary Blood No Growth after 24 hours 10/23/20 15:30 Gram Stain - Preliminary Sputum Sputum Culture - Preliminary 10/23/20 13:10 Blood Culture - Preliminary Blood No Growth after 24 hours Assessment and Plan Assessment: #1. Acute hypoxic respiratory failure related to acute pneumonia, likely aspiration pneumonia. COVID-19 PCR was negative 2. CTA chest was negative for evidence of pulmonary embolism, it did show dense consolidations bilaterally #2. Elevated d-dimer, CTA chest was negative for any evidence for pulmonary embolism, lower extremity Dopplers are pending at this time #3. Lactic acidosis related to pneumonia and sepsis, improved with IV hydration #4. History of drug abuse, and patient admits to methamphetamine, and marijuana use. Urine drug screen is positive for amphetamine, methamphetamine, and marijuana. Does have previous drug use history with cocaine, heroin, opiates, and prescription drugs #5. History of smoking, chronic and ongoing #6. Vital disorder #7. Anxiety #8. History of MRSA infection in the right knee #9. History of COPD, not oxygen dependent #10. History of seizures, he is not on any chronic seizure medications Recommendation: Continue antibiotics. Adjust according to the sputum culture if available or diagnostic. Presently pending. Continue aspiration precautions. Continue bronchodilators. Continue IV Solu-Medrol. Continue Lovenox. We will continue to follow. Not quite ready for any discharge planning at this point, consider repeat chest x-ray in a.m. Time with Patient: Less than 30
[2020-10-25] MEDS: ACETAMINOPHEN TAB 325 MG TAB PO PRN ×2 (14:39→23:20)
[2020-10-25 17:07] LABS: Glucose,Whole Blood 148 mg/dL (75-99)
--- NOTE | 2020-10-25 18:05 | P.PN ---
Subjective HISTORY OF PRESENTING ILLNESS This is a pleasant 49-year-old with past medical history significant for meth abuse, marijuana abuse, COPD, seizure disorder, hypertension, tobacco abuse, bipolar disorder who presents secondary to 2 days of cough, shortness breath. Patient appears in a fair amount of distress currently, apparently on CIWA protocol and admits she has severe anxiety. He is unsure if she is actually been having any fevers or chills recently. 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 He admits to some atypical chest pain which is worse when he takes a deep breath and area he was found to be hypoxic with oxygen saturation in the 80s, negative for COVID-19 2, d-dimer elevated at 5 and a CTA PE protocol showed no pulmonary embolism and consolidation consistent with pneumonia. He admits he is using meth however no IV drug abuse, previously used some however not in the last few months. He admits to chronic back pain since his back surgery and that the back pain is his main concern right now as well as his shortness breath. He initially had lactic acidosis at 5.0, currently improved to 1.9 today. 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 Denies any history of PCI or stents. EKG shows sinus tachycardia, normal axis, nonspecific upsloping ST depressions in the lateral leads. Echo 10/23/2020 shows EF 50-55%, trace tricuspid regurgitation, mild LVH. Initial troponin was 0.2 however no repeat was performed. 10/25 Patient seen and examined. Patient minutes to continued back pain. He was having chest pain yesterday when he came in however was mainly when he is taking a deep breath in. He denies any further recurrence of the chest pain. He states his breathing is somewhat improving. REVIEW OF SYSTEMS At the time of my exam: CONSTITUTIONAL: Denies fever or chills. CARDIOVASCULAR: +chest pain, +shortness of breath, no orthopnea, PND or palpitations. RESPIRATORY: +cough. GASTROINTESTINAL: Denies abdominal pain, diarrhea, constipation, +nausea, no vomiting. MUSCULOSKELETAL: Denies myalgias. NEUROLOGIC: Denies numbness, tingling or weakness. ENDOCRINE: Denies fatigue, weight change, polydipsia or polyurina. GENITOURINARY: Denies burning, hematuria or urgency with micturation. HEMATOLOGIC: Denies history of anemia or bleeding. PHYSICAL EXAMINATION Vital signs reviewed. CONSTITUTIONAL: Ill appearing, diaphoretic, appears may be withdrawing, poor insight and recall of medical problems HEENT: Head is normocephalic. Pupils are equal, round. Sclerae anicteric. Mucous membranes of the mouth are moist. No JVD. No carotid bruit. CHEST EXAMINATION: Bilateral rhonchi. HEART EXAMINATION: Regular rate and rhythm. S1, S2 heard. No murmurs, gallops or rub. ABDOMEN: Soft, nontender. Positive bowel sounds. EXTREMITIES: 2+ peripheral pulses, no lower extremity edema and no calf tenderness. NEUROLOGIC EXAMINATION: Patient is awake, alert and oriented x3. ASSESSMENT 1. Type II non-STEMI 2. History of meth abuse, marijuana abuse, tobacco abuse 3. COPD 4. Pneumonia 5. Sepsis 6. Sinus tachycardia 7. Elevated d-dimer PLAN Continue treatment for pneumonia, antibiotics. Have not received records from [facility]. Chest pain appears more pleuritic and echo shows predominately preserved ejection fraction. Continue medical therapy. Further recommendations to follow. Objective - Vital Signs Vital signs: Vital Signs Temp 98 F 10/25/20 14:30 Pulse 76 10/25/20 15:27 Resp 16 10/25/20 14:30 BP 129/67 10/25/20 14:30 Pulse Ox 98 10/25/20 14:30 Intake & Output 10/24/20 10/25/20 10/25/20 18:59 06:59 18:59 Intake Total 2450 1440 Output Total 575 750 775 Balance 1875 -750 665 Weight 72 kg Intake: Oral 2450 1440 Output: Urine 575 750 775 Other: Voiding Method Urinal Urinal Urinal # Bowel Movements 1 1 - Labs CBC & Chem 7: 10/25/20 05:57 10/25/20 05:57 Labs: Abnormal Lab Results - Last 24 Hours (Table) 10/24/20 10/24/20 10/25/20 Range/Units 06:04 15:35 05:57 WBC 12.3 H (3.8-10.6) k/uL RBC 4.07 L (4.30-5.90) m/uL Hgb 11.7 L (13.0-17.5) gm/dL Hct 36.4 L (39.0-53.0) % Chloride (98-107) mmol/L Carbon Dioxide (22-30) mmol/L Glucose (74-99) mg/dL POC Glucose (mg/dL) (75-99) mg/dL ALT (4-49) U/L Total Protein (6.3-8.2) g/dL Albumin (3.5-5.0) g/dL Triglycerides 274.0 H (0.0-149.0) mg/dL VLDL Cholesterol, Calc 54.80 H (5.00-40.00) mg/dL HDL Cholesterol 22.0 L (40.0-60.0) mg/dL Procalcitonin 28.65 H (0.02-0.09) ng/mL 10/25/20 10/25/20 10/25/20 Range/Units 05:57 11:45 16:41 WBC (3.8-10.6) k/uL RBC (4.30-5.90) m/uL Hgb (13.0-17.5) gm/dL Hct (39.0-53.0) % Chloride 113 H (98-107) mmol/L Carbon Dioxide 19 L (22-30) mmol/L Glucose 185 H (74-99) mg/dL POC Glucose (mg/dL) 127 H 148 H (75-99) mg/dL ALT 74 H (4-49) U/L Total Protein 5.5 L (6.3-8.2) g/dL Albumin 2.7 L (3.5-5.0) g/dL Triglycerides (0.0-149.0) mg/dL VLDL Cholesterol, Calc (5.00-40.00) mg/dL HDL Cholesterol (40.0-60.0) mg/dL Procalcitonin (0.02-0.09) ng/mL Microbiology - Last 24 Hours (Table) 10/23/20 13:10 Blood Culture - Preliminary Blood No Growth after 48 hours 10/24/20 06:04 Blood Culture - Preliminary Blood No Growth after 24 hours 10/23/20 15:30 Gram Stain - Preliminary Sputum Sputum Culture - Preliminary
[2020-10-25] MEDS: LORazepam 2 MG/ML INJ IV PRN (20:01)
[2020-10-25 20:26] LABS: Glucose,Whole Blood 189 mg/dL (75-99)
[2020-10-26] MEDS: PIPERACILLIN-TAZOBACTAM 3.375 GM in SODIUM CHLORIDE 0.9% 100 ML IVPB SCH ×4 (00:01→23:51)
[2020-10-26] MEDS: LORazepam 2 MG/ML INJ IV PRN ×3 (00:12→12:35)
[2020-10-26] MEDS: SODIUM CHLORIDE 0.9% 1,000 ML IV SCH ×2 (04:26→15:27)
[2020-10-26] MEDS: ACETAMINOPHEN TAB 325 MG TAB PO PRN ×2 (05:24→12:43)
[2020-10-26 05:33] LABS: Glucose,Whole Blood 174 mg/dL (75-99)
[2020-10-26] MEDS: methylPREDNISolone SOD SUCCI 125 MG/2 ML VIAL IV SCH ×2 (06:09→11:16)
[2020-10-26] MEDS: THIAMINE 100 MG TAB PO SCH ×2 (06:09→17:00)
[2020-10-26] MEDS: INSULIN ASPART (NovoLOG) 100 UNIT/ML VIAL SQ SCH ×4 (06:09→21:01)
[2020-10-26] MEDS ORDERED: VANCOMYCIN TROUGH DUE 1 EACH MISC MISCELLANE ONE (07:00)
[2020-10-26 08:10] LABS: HCT 36.6 % (39.0-53.0); HGB 12.2 gm/dL (13.0-17.5); MCH 29.6 pg (25.0-35.0); MCHC 33.3 g/dL (31.0-37.0); Mean Platelet Volume 8.8; Platelet Count 161 k/uL (150-450); RBC 4.11 m/uL (4.30-5.90); RDW 13.4 % (11.5-15.5); WBC 11.1 k/uL (3.8-10.6)
[2020-10-26] MEDS: ASPIRIN 81 MG PO SCH (08:18)
[2020-10-26] MEDS: VANCOMYCIN 1,500 MG in SODIUM CHLORIDE 0.9% 250 ML IVPB SCH (08:18)
[2020-10-26] MEDS: FAMOTIDINE 20 MG TAB PO SCH (08:19)
[2020-10-26] MEDS: MAGNESIUM OXIDE 400 MG TAB PO SCH ×2 (08:19→21:13)
[2020-10-26] MEDS: NICOTINE 14MG/24HR PATCH TRANSDERM SCH (08:19)
[2020-10-26] MEDS: ATORVASTATIN 20 MG TAB PO SCH (08:19)
[2020-10-26] MEDS: ENOXAPARIN 40 MG/0.4 ML SYRINGE SQ SCH (08:19)
[2020-10-26 08:30] LABS: African American GFR (CKD) >90 (>60 ml/min/1.73 sqM); Anion Gap 11 mmol/L; Blood Urea Nitrogen 20 mg/dL (9-20); Calcium 8.8 mg/dL (8.4-10.2); Carbon Dioxide 17 mmol/L (22-30); Chloride 114 mmol/L (98-107); Glucose 195 mg/dL (74-99); Non-African American GFR(CKD) >90 (>60 ml/min/1.73 sqM); Sodium 142 mmol/L (137-145)
[2020-10-26 08:32] LABS: Magnesium 1.7 mg/dL (1.6-2.3); Potassium 4.2 mmol/L (3.5-5.1)
[2020-10-26] MEDS: IPRATROPIUM-ALBUTEROL 3 ML NEB INHALATION SCH ×4 (08:43→19:43)
[2020-10-26] MEDS ORDERED: amLODIPine 10 MG TAB PO STA (09:19)
[2020-10-26] MEDS: METOPROLOL TARTRATE 12.5 MG TAB PO SCH (10:02)
--- NOTE | 2020-10-26 11:33 | P.PN ---
Subjective Progress Note Date: 10/26/20 Principal diagnosis: Chest discomfort The patient is a 49-year-old gentleman with history of drug abuse as well as multiple comorbid conditions was admitted to the hospital with pneumonia consulted for chest discomfort which we felt is atypical for angina. The troponin came in to be slightly abnormal and consistent was type II myocardial infarction with the patient was seen this morning he is chest pain-free. The pressure continues to be elevated and he is on calcium channel kaila with Norvasc as well as he is on metoprolol. I am going to add chlorthalidone to the current medical regimen in addition to beta kaila and calcium channel kaila. He is on aspirin and started we'll continue that. The echo revealed normal left ventricular systolic function without significant valvular abnormalities. Objective - Vital Signs Vital signs: Vital Signs Temp 97.7 F 10/26/20 11:15 Pulse 63 10/26/20 11:15 Resp 20 10/26/20 11:15 BP 190/107 10/26/20 11:15 Pulse Ox 93 L 10/26/20 11:15 Intake & Output 10/25/20 10/26/20 10/26/20 18:59 06:59 18:59 Intake Total 1440 780 600 Output Total 775 750 300 Balance 665 30 300 Weight 79 kg Intake: Oral 1440 780 600 Output: Urine 775 750 300 Other: Voiding Method Urinal Urinal Urinal # Voids 1 # Bowel Movements 1 1 - Constitutional General appearance: Present: no acute distress - Respiratory Respiratory: bilateral: diminished - Cardiovascular Rhythm: regular Heart sounds: normal: S1, S2 - Labs CBC & Chem 7: 10/26/20 07:29 10/26/20 07:29 Labs: Abnormal Lab Results - Last 24 Hours (Table) 10/25/20 10/25/20 10/25/20 Range/Units 11:45 16:41 20:25 WBC (3.8-10.6) k/uL RBC (4.30-5.90) m/uL Hgb (13.0-17.5) gm/dL Hct (39.0-53.0) % Chloride (98-107) mmol/L Carbon Dioxide (22-30) mmol/L Glucose (74-99) mg/dL POC Glucose (mg/dL) 127 H 148 H 189 H (75-99) mg/dL 10/26/20 10/26/20 10/26/20 Range/Units 05:32 07:29 07:29 WBC 11.1 H (3.8-10.6) k/uL RBC 4.11 L (4.30-5.90) m/uL Hgb 12.2 L (13.0-17.5) gm/dL Hct 36.6 L (39.0-53.0) % Chloride 114 H (98-107) mmol/L Carbon Dioxide 17 L (22-30) mmol/L Glucose 195 H (74-99) mg/dL POC Glucose (mg/dL) 174 H (75-99) mg/dL Microbiology - Last 24 Hours (Table) 10/23/20 15:30 Gram Stain - Final Sputum Sputum Culture - Final Estefany albicans Estefany sp,not albicans/galbr 10/24/20 06:04 Blood Culture - Preliminary Blood No Growth after 48 hours 10/23/20 13:10 Blood Culture - Preliminary Blood No Growth after 48 hours Assessment and Plan Assessment: Assessment #1 type II myocardial infarction #2 pleuritic chest pain which has improved. The patient currently is chest pain-free #3 uncontrolled blood pressure Plan #1 continue the current dose of aspirin as well as a statin #2 continue the current dose of beta kaila with metoprolol #3 add diuretics #4 start the patient on hydralazine IV #5 follow-up with the patient
[2020-10-26 12:00] LABS: Glucose,Whole Blood 119 mg/dL (75-99)
[2020-10-26] MEDS: hydrALAZINE HCL 20 MG/ML 1 ML VIAL IVP PRN (12:11)
--- NOTE | 2020-10-26 12:18 | P.PN ---
Subjective Progress Note Date: 10/26/20 Principal diagnosis: severe hypoxia and acute respiratory failure, bilateral pneumonia, elevated troponin with non-ST CA. Drug withdrawal with severe lethargy and anxiety. 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 Patient has not seen anybody for over a year has not taking any of his medication. 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 Patient also continue to use marijuana along with methamphetamine along with benzodiazepine he is not using cocaine or heroine lately Still smoking over a pack a day, He has been not feeling well for over 1 week with worsening shortness of breath and dyspnea along with cough and worsening shortness of breath with minimum exertion. Patient ended up coming to the emergency department at [facility] on 1complaining of dyspnea, cough, vomiting and diarrhea has been having fever and chills as well, preventative to 19 testing was negative, chest x-ray showed bilateral infiltrate with multifocal pneumonia,his labs showed elevated lactic acid 4.6 with troponin of 0.201 drug screen was positive for amphetamine, methamphetamine and marijuana. patient was started on O2 did not require any BiPAP started on nebulizer management along with steroid vancomycin and Zosyn with his d-dimer been elevated patient was started on heparin drip initially, CT of the lung did not show any embolism but just infiltrate we will stop anticoagulation is due DVT prophylaxis at this point patient is not having any significant anginal chest pain but is having chest wall pain as well. REVIEW OF SYSTEMS Constitutional: No fever, no chills, no night sweats. No weight change. No weakness, fatigue or lethargy. No daytime sleepiness. EENT: No headache. No blurred vision or double vision, no loss of vision. No loss of Hearing, no ringing in the ears, no dizziness. No nasal drainage or congestion. No epistaxis. No sore throat. Lungs: positive shortness of breath, cough, wheezes, dyspnea with exertion. Cardiovascular: positive chest wall pain, no lower extremity edema. No palpita tions. positive PND and orthopnea. No lightheadedness or dizziness. No syncopal episodes. Abdominal: mild abdominal pain with nausea vomiting and diarrhea or constipation no tarry stool mild loss of appetite. Genitourinary: No dysuria, increased frequency, urgency. No urinary retention. Musculoskeletal: No myalgias. No muscle weakness, no gait dysfunction, no frequent falls. No back pain. No neck pain. Integumentary: No wounds, no lesions. No rash or pruritus. No unusual bruising. No change in hair or nails. Neurologic: No aphasia. No facial droop. No change in mentation. No head injury. No headache. No paralysis. No paresthesia. Psychiatric: No depression. No anxiety. No mood swings. Endocrine: No abnormal blood sugars. No weight change. No excessive sweating or thirst. No cold intolerance. 10/25: Patient was seen cardiology was diagnosed with non-ST CA, echocardiogram still showing good ejection fraction at this point, no intervention schedule at this point till infection is a clear patient might benefit from medical management till his bilateral pneumonia is a clear may be testing as an outpatient specially patient is asymptomatic with his ischemic cardiomyopathy or non-ST CA this time. 10/26 patient is doing slightly but better medically has pneumonia is under well controlled. At seen cardiology today and the plan is to continue current medical management testing as an outpatient eventually. His blood pressure was quite bit high today was started on IV hydralazine plus titrate his beta kaila and will add clonidine on an as-needed basis as well. He is more irritable today we will ask psych for evaluation specially with his multi drug dependency. PHYSICAL EXAMINATION Gen: This is 49-year-old laying comfortably still holding his chest having slight shortness of breath and mild tremor does not look in any respiratory d istress HEENT: Head is atraumatic, normocephalic. Pupils equal, round. Sclerae is anicteric. NECK: Supple. No JVD. No lymphadenopathy. No thyromegaly. LUNGS: positive chest wall pain especially in the left side, positive crackles in the bases worsening of the right than the left side HEART: Regular rate and rhythm. No murmur. ABDOMEN: Soft. Bowel sounds are present. No masses. No tenderness. EXTREMITIES: No pedal edema. No calf tenderness. patient has bugs bite all over his body NEUROLOGICAL: Patient is awake, mild irritability, alert and oriented x3. Cranial nerves 2 through 12 are grossly intact. ASSESSMENT AND PLAN 1. acute respiratory failure: Secondary to bilateral pneumonia and possible fluid overload, symptom are slightly but better continue current IV antibiotics still on O2 and updraft treatment. 2. COPD excessive patient: Will continue patient on steroid along with updraft with DuoNeb and Pulmicort. Slight improvement. 3. aspiration pneumonia and sepsis: Still on Vanco and Zosyn seems to respond very well. His sputum culture came back positive with Estefany albicans we will add Diflucan for a few days. 4. Type II myocardial infarction: Continue medical management no intervention is needed at this point. 5. elevated blood pressure: Patient was restarted back on metoprolol 12.5 mg twice a day if the blood pressure is holding well will add smaller dose of DEION inhibitor. 6. mild tremor and irritability: Most likely from withdrawal from drugs, patient will be watch carefully use lorazepam on an as-needed basis to help him out e vent patient looks and act like somebody drink regularly. 7. chronic smoking: Start patient on nicotine patch at this point. 8. CODE STATUS: Full code. Objective - Vital Signs Vital signs: Vital Signs Temp 97.7 F 10/26/20 11:15 Pulse 68 10/26/20 12:04 Resp 20 10/26/20 11:15 BP 190/107 10/26/20 11:15 Pulse Ox 93 L 10/26/20 11:15 Intake & Output 10/25/20 10/26/20 10/26/20 18:59 06:59 18:59 Intake Total 1440 780 600 Output Total 775 750 300 Balance 665 30 300 Weight 79 kg Intake: Oral 1440 780 600 Output: Urine 775 750 300 Other: Voiding Method Urinal Urinal Urinal # Voids 1 # Bowel Movements 1 1 - Labs CBC & Chem 7: 10/26/20 07:29 10/26/20 07:29 Labs: Abnormal Lab Results - Last 24 Hours (Table) 10/25/20 10/25/20 10/26/20 Range/Units 16:41 20:25 05:32 WBC (3.8-10.6) k/uL RBC (4.30-5.90) m/uL Hgb (13.0-17.5) gm/dL Hct (39.0-53.0) % Chloride (98-107) mmol/L Carbon Dioxide (22-30) mmol/L Glucose (74-99) mg/dL POC Glucose (mg/dL) 148 H 189 H 174 H (75-99) mg/dL 10/26/20 10/26/20 10/26/20 Range/Units 07:29 07:29 11:52 WBC 11.1 H (3.8-10.6) k/uL RBC 4.11 L (4.30-5.90) m/uL Hgb 12.2 L (13.0-17.5) gm/dL Hct 36.6 L (39.0-53.0) % Chloride 114 H (98-107) mmol/L Carbon Dioxide 17 L (22-30) mmol/L Glucose 195 H (74-99) mg/dL POC Glucose (mg/dL) 119 H (75-99) mg/dL Microbiology - Last 24 Hours (Table) 10/23/20 15:30 Gram Stain - Final Sputum Sputum Culture - Final Estefany albicans Estefany sp,not albicans/galbr 10/24/20 06:04 Blood Culture - Preliminary Blood No Growth after 48 hours 10/23/20 13:10 Blood Culture - Preliminary Blood No Growth after 48 hours
--- NOTE | 2020-10-26 12:37 | XR ---
EXAMINATION TYPE: XR chest 1V DATE OF EXAM: 10/26/2020 COMPARISON: 10/23/2020 HISTORY: Pneumonia TECHNIQUE: Single frontal view of the chest is obtained. FINDINGS: Persistent perihilar basilar and right upper lobe airspace infiltrates persist without significant ch mary. The cardiac silhouette size is within normal limits. The osseous structures are intact. IMPRESSION: 1. Persistent perihilar basilar and right upper lobe airspace infiltrates persist without significant change.
--- NOTE | 2020-10-26 13:50 | P.PN ---
Subjective Progress Note Date: 10/26/20 Principal diagnosis: Acute hypoxic respiratory failure secondary to pneumonia This is a 49-year-old with past medical history of COPD, seizures, hypertension, chronic smoker, drug abuse, bipolar disorder and anxiety, who came into the emergency department on 10/23/2020 complaining of couple days of fever, not feeling well, coughing, shortness of breath. Chest x-ray showed bilateral infiltrate with small pleural effusion, diffuse interstitial pattern, no evidence of pneumothorax. Heart size was normal. EKG showed sinus tachycardia with a rate of 113 BPM, patient was hypoxic satting at 87%, she was placed on supplemental oxygen, currently he is on 4 L. He was tested for COVID 19 via PCR test twice, and both times he was negative. His d-dimer was elevated on admission at 5.72, and CTA chest was completed showing no acute pulmonary embolism, it did show dense consolidations in the posterior upper lung paris, some patchy density through the right mid and lingular regions and there were posterior lung base and right middle lobe consolidations present. Patient st ates he also had bouts of diarrhea, nausea and vomiting at home. His white count was 12.1, hemoglobin was 16.1, sodium is 131, potassium is 5.2, chloride is 100, CO2 16, BUN is 34, creatinine was 1.2, lactic acid was elevated at 5.0, magnesium was 1.5, AST was 242, ALT was 170, alkaline phosphatase was 79, LDH is 1463, CRP was greater than 27, troponin was 0.201, his urine drug screen came back positive for amphetamines, methamphetamines, and marijuana. In the emergency department she was started on empiric antibiotics in the form of Rocephin and Zithromax, he was given 2 L and fluid boluses, and currently his IV fluids are going at 130 ML per hour with 0.9 normal saline. He remains on 3 L of oxygen, pulse ox is 95%, afebrile overnight, at times slightly tachycardic, blood pressure is stable, has a congested cough, but no hemoptysis, no chest discomfort. Currently his lactic acid is down to 1.9. His white blood cell count is 12.9, hemoglobin is 13.4. Quite wheezy and congested on today's exam. Reevaluated today on 10/25/2020, patient is feeling better today, breathing easier. Patient was admitted and we saw him yesterday on consultation, and I felt that the patient has bilateral pneumonia, most likely secondary to aspiration. Patient was placed on antibiotics in the form of vancomycin and Zosyn, he was also placed on bronchodilators and IV Solu-Medrol. Fortine that there he has some significant component of COPD with acute exacerbation. Again the patient is feeling better today, breathing easier. Afebrile, vital signs are stable, he is on O2 at 2 L with O2 sat showed 96%. CBC count is 12.3 hemoglobin is 11.7, lites are normal renal profile is normal. Blood cultures are negative so far, and sputum cultures are nondiagnostic. On 10/26/2020 patient seen in follow-up on selective care unit, he is much more awake and appropriate today, he is oriented 3, he is calm and cooperative, no tremors, no agitation no confusion noted on today's exam. Pulse ox is 93% on room air, his been afebrile. Pains on Zosyn and vancomycin for possibility of aspiration pneumonia, today's chest x-ray shows persistence perihilar basilar and right upper lobe airspace infiltrates without significant change. He remains on IV steroids in the form of Solu-Medrol 40 mg every 8 hours, and nebulized bronchodilators, his sputum culture showed Estefany albicans and Estefany species not albicans or glabrata. His labs have been reviewed, his white blood cell count is relatively stable at 11.1, slightly improved, hemoglobin is 12.2, sodium is 142, potassium is 4.2, chloride is 114, CO2 17, B1 is 20, creatinine 0.9. Patient's pro calcitonin level was significantly elevated at 28.65, confirming bacterial pneumonia. Objective - Vital Signs Vital signs: Vital Signs Temp 97.7 F 10/26/20 11:15 Pulse 68 10/26/20 12:04 Resp 20 10/26/20 11:15 BP 190/107 10/26/20 11:15 Pulse Ox 93 L 10/26/20 11:15 Intake & Output 10/25/20 10/26/20 10/26/20 18:59 06:59 18:59 Intake Total 1440 780 600 Output Total 775 750 300 Balance 665 30 300 Weight 79 kg Intake: Oral 1440 780 600 Output: Urine 775 750 300 Other: Voiding Method Urinal Urinal Urinal # Voids 1 # Bowel Movements 1 1 - Exam GENERAL EXAM: Alert, 49-year-old male on room air with pulse ox of 95%, has occasional congested cough, comfortable in no apparent distress. HEAD: Normocephalic/atraumatic. EYES: Normal reaction of pupils, equal size. Conjunctiva pink, sclera white. NOSE: Clear with pink turbinates. THROAT: No erythema or exudates. NECK: No masses, no JVD, no thyroid enlargement, no adenopathy. CHEST: No chest wall deformity. Symmetrical expansion. LUNGS: Equal air entry with diffuse wheezes CVS: Regular rate and rhythm, normal S1 and S2, no gallops, no murmurs, no rubs ABDOMEN: Soft, nontender. No hepatosplenomegaly, normal bowel sounds, no guarding or rigidity. EXTREMITIES: No clubbing, no edema, no cyanosis, 2+ pulses and upper and lower extremities. MUSCULOSKELETAL: Muscle strength and tone normal. SPINE: No scoliosis or deformity SKIN: No rashes, patient has multiple tattoos on his arms, abdomen, chest, legs CENTRAL NERVOUS SYSTEM: Alert and oriented -3. No focal deficits, tone is normal in all 4 extremities. PSYCHIATRIC: Alert and oriented -3. Appropriate affect. Intact judgment and insight. - Labs CBC & Chem 7: 10/26/20 07:29 10/26/20 07:29 Labs: Abnormal Lab Results - Last 24 Hours (Table) 10/25/20 10/25/20 10/26/20 Range/Units 16:41 20:25 05:32 WBC (3.8-10.6) k/uL RBC (4.30-5.90) m/uL Hgb (13.0-17.5) gm/dL Hct (39.0-53.0) % Chloride (98-107) mmol/L Carbon Dioxide (22-30) mmol/L Glucose (74-99) mg/dL POC Glucose (mg/dL) 148 H 189 H 174 H (75-99) mg/dL 10/26/20 10/26/20 10/26/20 Range/Units 07:29 07:29 11:52 WBC 11.1 H (3.8-10.6) k/uL RBC 4.11 L (4.30-5.90) m/uL Hgb 12.2 L (13.0-17.5) gm/dL Hct 36.6 L (39.0-53.0) % Chloride 114 H (98-107) mmol/L Carbon Dioxide 17 L (22-30) mmol/L Glucose 195 H (74-99) mg/dL POC Glucose (mg/dL) 119 H (75-99) mg/dL Microbiology - Last 24 Hours (Table) 10/23/20 15:30 Gram Stain - Final Sputum Sputum Culture - Final Estefany albicans Estefany sp,not albicans/galbr 10/24/20 06:04 Blood Culture - Preliminary Blood No Growth after 48 hours 10/23/20 13:10 Blood Culture - Preliminary Blood No Growth after 48 hours Assessment and Plan Plan: Assessment: #1. Acute hypoxic respiratory failure related to acute pneumonia, with the possibility of atypical versus aspiration related pneumonia. COVID-19 PCR was negative 2. CTA chest was negative for evidence of pulmonary embolism, it did show dense consolidations bilaterally #2. Elevated d-dimer, CTA chest was negative for any evidence for pulmonary embolism, lower extremity Dopplers are negative for DVT #3. Lactic acidosis related to pneumonia and sepsis, improved with IV hydration #4. History of drug abuse, and patient admits to methamphetamine, and marijuana use. Urine drug screen is positive for amphetamine, methamphetamine, and marijuana. Does have previous drug use history with cocaine, heroin, opiates, and prescription drugs #5. History of smoking, chronic and ongoing #6. Bipolar disorder #7. Anxiety #8. History of MRSA infection in the right knee #9. History of COPD, not oxygen dependent #10. History of seizures, he is not on any chronic seizure medications Plan: Continue current antibiotic coverage, patient remains on a combination of Zosyn, vancomycin and Diflucan Clinically he is improving, no altered mentation, he is more responsive and appropriate on today's exam, cooperative, comfortable No fever or chills Today's chest x-ray shows relatively stable bilateral perihilar basilar and right upper lobe airspace infiltrates We'll obtain a follow-up pro-calcitonin Increase activity as tolerated We'll continue to follow I performed a history & physical examination of the patient and discussed their management with my nurse practitioner, Arlin Alvares. I reviewed the nurse practitioner's note and agree with the documented findings and plan of care. Noemí ng sounds are positive for diffuse wheezes throughout the lung paris. The findings and the impression was discussed with the patient. I attest to the documentation by the nurse practitioner. Time with Patient: Less than 30
[2020-10-26] MEDS ORDERED: HALOPERIDOL LACTATE 5 MG/ML 1 ML VIAL IM PRN (13:56)
[2020-10-26] MEDS ORDERED: haloperidoL 1 MG TAB PO PRN (13:56)
[2020-10-26] MEDS ORDERED: QUEtiapine 50 MG TAB PO STA (13:56)
[2020-10-26] MEDS ORDERED: LORazepam 2 MG/ML INJ IM PRN (13:57)
[2020-10-26] MEDS: LOSARTAN 50 MG TAB PO SCH (14:13)
[2020-10-26] MEDS: FLUCONAZOLE 150 MG TAB PO SCH (14:14)
[2020-10-26] MEDS: BENZTROPINE MESYLATE 0.5 MG TAB PO SCH ×2 (14:56→23:47)
--- NOTE | 2020-10-26 15:02 | P.CN ---
Psychiatric Consult - . Consult date: 10/26/20 Consult:: 10/26/20 14:59 IDENTIFYING DATA: This patient is a single, unemployed, 49-year-old male with significant history of bipolar disorder and polysubstance abuse who was admitted for severe hypoxia and acute respiratory failure. HISTORY OF PRESENT ILLNESS: The patient presented to the hospital on 10/24/2020, who initially presented to the emergency department due to cough, shortness of breath, vomiting, and significant diarrhea. The patient was admitted for management of pneumonia and possible sepsis. He was started on vancomycin and Zosyn. He was also placed on bronchodilators and IV Solu-Medrol. Psychiatry was consulted for polysubstance abuse. Upon evaluation on the medical floor, the patient is endorsing significant paranoia. The patient appears quite distressed and has been requesting to leave. He states that he is fearful that he is going to be killed while in this hospital. He expresses that this hospitalization is like "[place]witz" and that he is fearful that he is going to . He states that if he was to be stopped from leaving he will fight and hurt whoever tries. He expresses he is feeling very anxious and scared. He states he feels he is ready to "run through the wall like the Sticky man." He believes hospital staff are trying to kill him and poison him with medications. He states he has not been sleeping or eating. He reports auditory hallucinations which he describes as a "crowd sound. Like multiple people talking but nothing can be understood." He denies any visual hallucinations. In regards to mood, the patient does admit to a history of bipolar disorder. He states he has gone days without sleep previously and admits to a history of racing thoughts, mood lability, and impulsive behavior. He has a reported history of prior attempts at suicide. He is currently denying any depressive symptoms at this time. He admits to racing thoughts and elevated restlessness at this time. 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 He states he last used methamphetamines 3-4 days prior to his admission to this hospital.He admits to heavy CBD and THC use which he states he uses to manage his anxiety. He has a history of cocaine use. He smokes 1 PPD of tobacco. He denies any alcohol use. PAST PSYCHIATRIC HISTORY: The patient reports that he has a history of bipolar disorder. He is currently a poor historian due to his elevated agitation. Much of the history was provided by [facility]. The patient was last evaluated by [facility] in August 2019. They report that the patient has a diagnosis of bipolar 1 disorder with psychotic features. During that appointment, the patient was on a regimen of clonidine 0.1 mg at bedtime, lithium 600 mg at bedtime, Seroquel 100 mg in the morning and 200 mg at bedtime, and Wellbutrin XL 150 mg in the morning. They note that the patient has significant history of bipolar 1 disorder with psychotic features with significant symptoms of euphoria, excessive energy, impulsivity, irritability, and paranoia. They also do note the patient has a significant history of auditory hallucinations. The patient has a reported history of prior suicide attempts. PAST MEDICAL HISTORY: Past Medical History: COPD Additional Past Medical History / Comment(s): facial reconstruction chronic back pain History of Any Multi-Drug Resistant Organisms: MRSA Date of last positivie culture/infection: 2013 MDRO Source:: knee Past Surgical History: Orthopedic Surgery Additional Past Surgical History / Comment(s): facial reconstruction; right knee Past Anesthesia/Blood Transfusion Reactions: No Reported Reaction Past Psychological History: Anxiety, Bipolar Additional Psychological History / Comment(s): Single. Denies having children. Spent time in detention. Ongoing tobacco use. Injection drug use mostly with cocaine. Denies other significant current substance abuse. The experience. International travel. No animal exposures. Smoking Status: Current every day smoker Past Alcohol Use History: None Reported Additional Past Alcohol Use History / Comment(s): Pt started smoking in 1998 and is a ppd smoker. Past Drug Use History: Cocaine, Heroin, Marijuana, Opiates, Prescription Drug Abuse Additional Drug Use History / Comment(s): Pt states he mostly uses cocaine and methamphetamines. He injects. He states he has quit using and last used about 8-9 days ago. ALLERGIES: NO KNOWN DRUG ALLERGIES CHEMICAL DEPENDENCY HISTORY: as per HPI. FAMILY PSYCHIATRIC/SUBSTANCE USE HISTORY: No reported family history. SOCIAL HISTORY: The patient is currently single and unemployed and lives with his mother. He does report that he has been working on a construction job for homeless . His father from an [place] in his 50s. He has a sister and brother are both living. MENTAL STATUS EXAM: General Appearance: Patient appears to be stated age is alert and agitated and suspicious. Patient appears to have fair hygiene and grooming wearing hospital gown with fair eye contact. Behavior: Psychomotor agitation is evident. Patient is tearful and restless. Speech: Patient's speech is fluent and nonpressured. Mood/Affect: Patient reports their mood is "scared", affect is congruent, labile, and tearful. Suicidality/Homicidality: Patient denies any suicidal or homicidal ideation, intention, and/or plan. He does state that if people were trying to stop him from leaving that he would hurt them. Auditory/visual hallucinations: Patient endorses auditory hallucinations. He denies any visual hallucinations. Though content/process: The patient is endorsing significant delusional and bizarre thought content. Thought process with loose associations and flight of ideas. Memory/concentration: Concentration is grossly poor at this time. Patient is alert and oriented to person and place but not to time. Judgment and insight: Very poor. Vital Signs Temp 97.7 F 10/26/20 11:15 Pulse 68 10/26/20 12:04 Resp 20 10/26/20 11:15 BP 190/107 10/26/20 11:15 Pulse Ox 93 L 10/26/20 11:15 Intake & Output 10/25/20 10/26/20 10/26/20 18:59 06:59 18:59 Intake Total 1440 780 600 Output Total 775 750 300 Balance 665 30 300 Weight 79 kg Intake: Oral 1440 780 600 Output: Urine 775 750 300 Other: Voiding Method Urinal Urinal Urinal # Voids 1 # Bowel Movements 1 1 Laboratory Results - Last 24 Hours 10/25/20 10/25/20 10/26/20 16:41 20:25 05:32 WBC RBC Hgb Hct MCV MCH MCHC RDW Plt Count MPV Sodium Potassium Chloride Carbon Dioxide Anion Gap BUN Creatinine Est GFR (CKD-EPI)AfAm Est GFR (CKD-EPI)NonAf Glucose POC Glucose (mg/dL) 148 H 189 H 174 H POC Glu Automation Consultant ID Mari Garnica Katie Nichols, Katie Calcium Magnesium Vancomycin Trough 10/26/20 10/26/20 10/26/20 07:29 07:29 07:29 WBC 11.1 H RBC 4.11 L Hgb 12.2 L Hct 36.6 L MCV 89.0 MCH 29.6 MCHC 33.3 RDW 13.4 Plt Count 161 MPV 8.8 Sodium 142 Potassium 4.2 Chloride 114 H Carbon Dioxide 17 L Anion Gap 11 BUN 20 Creatinine 0.90 Est GFR (CKD-EPI)AfAm >90 Est GFR (CKD-EPI)NonAf >90 Glucose 195 H POC Glucose (mg/dL) POC Glu Automation Consultant ID Calcium 8.8 Magnesium 1.7 Vancomycin Trough 12.7 10/26/20 11:52 WBC RBC Hgb Hct MCV MCH MCHC RDW Plt Count MPV Sodium Potassium Chloride Carbon Dioxide Anion Gap BUN Creatinine Est GFR (CKD-EPI)AfAm Est GFR (CKD-EPI)NonAf Glucose POC Glucose (mg/dL) 119 H POC Glu Automation Consultant ID Mari Garnica Calcium Magnesium Vancomycin Trough IMPRESSIONS: Acute hypoxic respiratory failure related to acute pneumonia Bipolar disorder, type I, with psychotic features Polysubstance abuse - methamphetamines, cannabis, nicotine PLAN: -Continue your medical management for acute hypoxic respiratory failure -At this time patient DOES meet criteria for inpatient psychiatric admission. The patient is currently endorsing significant paranoia and delusional thinking. Furthermore he endorses auditory hallucinations. The patient presents with imminent risk of harm to self albeit unintentionally due to his psychosis preventing him from engaging in participating in medical treatment that would prevent further deterioration or . The patient also is presenting with limited insight and does not believe he needs any mental health treatment. -At this time, the patient does not present with any capacity for medical decision making due to the extent of his psychosis. Patient DOES NOT have decision making capacity at this time and is unable to reason through and communicate/appreciate the risks, benefits and alternatives to treatment. -Would recommend the following medication changes/additions: We will give the patient 1 time dose of Seroquel 50 mg by mouth for acute agitation. Start Seroquel 100 mg by mouth at bedtime for mood stabilization/psychosis Start Cogentin 0.5 mg by mouth twice a day We will start Haldol and Ativan as needed for agitation -Start 1:1 sitter for safety -Cannot leave AMA at this time. Patient will need a petition and certification if attempting to leave AMA. The patient is currently petitionable due to his acute psychosis placing him at increased risk of harm to himself due to his firm belief that he does not need any medical treatment and that the hospital is "trying to kill me." -Will continue to follow along -When medically stable, patient is eligible for transfer to a psych bed when available. 10/26/20 15:00
[2020-10-26] MEDS: methylPREDNISolone SOD SUCCI 40 MG/ML 1 ML VIAL IV SCH ×2 (15:33→23:36)
[2020-10-26] MEDS: VANCOMYCIN 1,750 MG in SODIUM CHLORIDE 0.9% 500 ML 500 ML IVPB SCH ×2 (15:33→23:36)
[2020-10-26 16:49] LABS: Glucose,Whole Blood 141 mg/dL (75-99)
[2020-10-26 20:43] LABS: Glucose,Whole Blood 118 mg/dL (75-99)
[2020-10-26] MEDS ORDERED: QUEtiapine 100 MG TAB PO SCH (21:00)
[2020-10-26] MEDS ORDERED: BENZTROPINE MESYLATE 0.5 MG TAB PO SCH (21:00)
[2020-10-26] MEDS: METOPROLOL TARTRATE 25 MG TAB PO SCH (21:06)
[2020-10-27 06:06] LABS: Glucose,Whole Blood 128 mg/dL (75-99)
[2020-10-27] MEDS: INSULIN ASPART (NovoLOG) 100 UNIT/ML VIAL SQ SCH ×4 (06:07→21:33)
[2020-10-27] MEDS: THIAMINE 100 MG TAB PO SCH ×2 (06:33→16:57)
[2020-10-27 08:47] LABS: African American GFR (CKD) >90 (>60 ml/min/1.73 sqM); Non-African American GFR(CKD) >90 (>60 ml/min/1.73 sqM)
[2020-10-27] MEDS: IPRATROPIUM-ALBUTEROL 3 ML NEB INHALATION SCH ×4 (08:58→19:59)
--- NOTE | 2020-10-27 09:04 | P.PN ---
Subjective Progress Note Date: 10/27/20 Principal diagnosis: Chest discomfort The patient was seen this morning. He is chest pain-free. He is a pleasant 49-year-old gentleman who was admitted to the hospital with a pneumonia and we consulted for chest discomfort which we felt is pleuritic and atypical for angina. The troponin came in to be slightly abnormal but consistent was type II myocardial infarction. D-dimer came in to be elevated a computed tomography scan of the chest came in to be unremarkable for PE. He was seen this morning. His chest pain-free. He denies any dizziness or lightheadedness or any feeling of heart racing or fluttering. Yesterday I added chlorthalidone to the current medical regimen to control the blood pressure. His pressure is slightly better today. He is on steroid which is not helping in getting the blood pressure under control. The echo revealed normal left ventricle systolic function without any significant valvular abnormalities. He is on aspirin and metoprolol and statin. Objective - Vital Signs Vital signs: Vital Signs Temp 98 F 10/27/20 04:00 Pulse 53 L 10/27/20 08:58 Resp 18 10/27/20 08:58 BP 159/87 10/27/20 04:00 Pulse Ox 93 L 10/27/20 08:58 Intake & Output 10/26/20 10/27/20 10/27/20 18:59 06:59 18:59 Intake Total 2070 240 480 Output Total 2525 1450 550 Balance -455 -1210 -70 Weight 77.5 kg Intake: Intake, IV Titration 870 Amount Piperacillin-Tazobactam 3 100 .375 gm In Sodium Chloride 0.9% 100 ml @ 25 mls/hr IVPB Q8H ISHMAEL Rx#: [id number] Sodium Chloride 0.9% 1, 520 000 ml @ 130 mls/hr IV . [id number] ISHMAEL Rx#:[id number] Vancomycin 1,500 mg In 250 Sodium Chloride 0.9% 250 ml @ 125 mls/hr IVPB Q8HR ISHMAEL Rx#:[id number] Oral 1200 240 480 Output: Urine 2525 1450 550 Other: Voiding Method Urinal Urinal # Voids 1 # Bowel Movements 1 1 - Constitutional General appearance: Present: no acute distress - Respiratory Respiratory: bilateral: diminished - Cardiovascular Rhythm: regular - Labs CBC & Chem 7: 10/26/20 07:29 10/27/20 08:02 Labs: Abnormal Lab Results - Last 24 Hours (Table) 10/26/20 10/26/20 10/26/20 Range/Units 11:52 16:40 20:37 POC Glucose (mg/dL) 119 H 141 H 118 H (75-99) mg/dL 10/27/20 Range/Units 06:02 POC Glucose (mg/dL) 128 H (75-99) mg/dL Microbiology - Last 24 Hours (Table) 10/24/20 06:04 Blood Culture - Preliminary Blood No Growth after 72 hours 10/23/20 13:10 Blood Culture - Preliminary Blood No Growth after 72 hours 10/23/20 15:30 Gram Stain - Final Sputum Sputum Culture - Final Estefany albicans Estefany sp,not albicans/galbr Assessment and Plan Assessment: Assessment #1 type II myocardial infarction #2 pleuritic chest pain which has improved. The patient currently is chest pain-free #3 hypertension #4 dyslipidemia Plan #1 continue the aspirin and statin #2 continue the current dose of metoprolol #3 consider increasing the dose of losartan if the pressure continues to be elevated in the next 24 hours #4 follow-up with the patient
[2020-10-27] MEDS: VANCOMYCIN 1,750 MG in SODIUM CHLORIDE 0.9% 500 ML 500 ML IVPB SCH (09:35)
[2020-10-27] MEDS: methylPREDNISolone SOD SUCCI 40 MG/ML 1 ML VIAL IV SCH ×2 (09:36→16:57)
[2020-10-27] MEDS: PIPERACILLIN-TAZOBACTAM 3.375 GM in SODIUM CHLORIDE 0.9% 100 ML IVPB SCH ×2 (09:36→16:57)
[2020-10-27] MEDS: NICOTINE 14MG/24HR PATCH TRANSDERM SCH (09:37)
[2020-10-27] MEDS: LOSARTAN 50 MG TAB PO SCH (09:37)
[2020-10-27] MEDS: FLUCONAZOLE 150 MG TAB PO SCH (09:37)
[2020-10-27] MEDS: FAMOTIDINE 20 MG TAB PO SCH (09:37)
[2020-10-27] MEDS: ENOXAPARIN 40 MG/0.4 ML SYRINGE SQ SCH (09:37)
[2020-10-27] MEDS: MAGNESIUM OXIDE 400 MG TAB PO SCH ×2 (09:37→21:33)
[2020-10-27] MEDS: ATORVASTATIN 20 MG TAB PO SCH (09:37)
[2020-10-27] MEDS: ASPIRIN 81 MG PO SCH (09:37)
[2020-10-27] MEDS: CHLORTHALIDONE 25 MG TAB PO SCH (09:38)
[2020-10-27] MEDS: BENZTROPINE MESYLATE 0.5 MG TAB PO SCH ×2 (09:38→21:33)
[2020-10-27] MEDS: METOPROLOL TARTRATE 25 MG TAB PO SCH (09:40)
[2020-10-27] MEDS ORDERED: METOPROLOL TARTRATE 12.5 MG TAB PO SCH (10:00)
--- NOTE | 2020-10-27 11:14 | P.PN ---
Subjective Progress Note Date: 10/27/20 Principal diagnosis: Acute hypoxic respiratory failure secondary to pneumonia This is a 49-year-old with past medical history of COPD, seizures, hypertension, chronic smoker, drug abuse, bipolar disorder and anxiety, who came into the emergency department on 10/23/2020 complaining of couple days of fever, not feeling well, coughing, shortness of breath. Chest x-ray showed bilateral infiltrate with small pleural effusion, diffuse interstitial pattern, no evidence of pneumothorax. Heart size was normal. EKG showed sinus tachycardia with a rate of 113 BPM, patient was hypoxic satting at 87%, she was placed on supplemental oxygen, currently he is on 4 L. He was tested for COVID 19 via PCR test twice, and both times he was negative. His d-dimer was elevated on admission at 5.72, and CTA chest was completed showing no acute pulmonary embolism, it did show dense consolidations in the posterior upper lung [place], some patchy density through the right mid and lingular regions and there were posterior lung base and right middle lobe consolidations present. Patient st ates he also had bouts of diarrhea, nausea and vomiting at home. His white count was 12.1, hemoglobin was 16.1, sodium is 131, potassium is 5.2, chloride is 100, CO2 16, BUN is 34, creatinine was 1.2, lactic acid was elevated at 5.0, magnesium was 1.5, AST was 242, ALT was 170, alkaline phosphatase was 79, LDH is 1463, CRP was greater than 27, troponin was 0.201, his urine drug screen came back positive for amphetamines, methamphetamines, and marijuana. In the emergency department she was started on empiric antibiotics in the form of Rocephin and Zithromax, he was given 2 L and fluid boluses, and currently his IV fluids are going at 130 ML per hour with 0.9 normal saline. He remains on 3 L of oxygen, pulse ox is 95%, afebrile overnight, at times slightly tachycardic, blood pressure is stable, has a congested cough, but no hemoptysis, no chest discomfort. Currently his lactic acid is down to 1.9. His white blood cell count is 12.9, hemoglobin is 13.4. Quite wheezy and congested on today's exam. Reevaluated today on 10/25/2020, patient is feeling better today, breathing easier. Patient was admitted and we saw him yesterday on consultation, and I felt that the patient has bilateral pneumonia, most likely secondary to aspiration. Patient was placed on antibiotics in the form of vancomycin and Zosyn, he was also placed on bronchodilators and IV Solu-Medrol. [place] that there he has some significant component of COPD with acute exacerbation. Again the patient is feeling better today, breathing easier. Afebrile, vital signs are stable, he is on O2 at 2 L with O2 sat showed 96%. CBC count is 12.3 hemoglobin is 11.7, lites are normal renal profile is normal. Blood cultures are negative so far, and sputum cultures are nondiagnostic. On 10/26/2020 patient seen in follow-up on selective care unit, he is much more awake and appropriate today, he is oriented 3, he is calm and cooperative, no tremors, no agitation no confusion noted on today's exam. Pulse ox is 93% on room air, his been afebrile. Pains on Zosyn and vancomycin for possibility of aspiration pneumonia, today's chest x-ray shows persistence perihilar basilar and right upper lobe airspace infiltrates without significant change. He remains on IV steroids in the form of Solu-Medrol 40 mg every 8 hours, and nebulized bronchodilators, his sputum culture showed Estefany albicans and Estefany species not albicans or glabrata. His labs have been reviewed, his white blood cell count is relatively stable at 11.1, slightly improved, hemoglobin is 12.2, sodium is 142, potassium is 4.2, chloride is 114, CO2 17, B1 is 20, creatinine 0.9. Patient's pro calcitonin level was significantly elevated at 28.65, confirming bacterial pneumonia. The patient is seen today 10/27/2000 on the selective care unit. He is currently sitting up in bed. Awake and alert in no acute distress. Continues with a loose nonproductive cough. No fever or chills. Maintaining O2 saturations in the mid 90s on room air. Creatinine 0.88. Blood glucose 128. The patient did get acutely agitated and a Mr. Borrero was called on him yesterday. He received IM Haldol. He is currently calm and cooperative. He remains on bronchodilators, IV Solu-Medrol, Diflucan, antibiotics in the form of Zosyn. Lovenox for DVT prophylaxis. Objective - Vital Signs Vital signs: Vital Signs Temp 97.5 F L 10/27/20 09:35 Pulse 59 L 10/27/20 09:35 Resp 20 10/27/20 09:35 BP 163/87 10/27/20 09:35 Pulse Ox 95 10/27/20 09:35 Intake & Output 10/26/20 10/27/20 10/27/20 18:59 06:59 18:59 Intake Total 2070 240 480 Output Total 2525 1450 850 Balance -455 1210 -370 Weight 77.5 kg Intake: Intake, IV Titration 870 Amount Piperacillin-Tazobactam 3 100 .375 gm In Sodium Chloride 0.9% 100 ml @ 25 mls/hr IVPB Q8H [facility] Rx#: [id number] Sodium Chloride 0.9% 1, 520 000 ml @ 130 mls/hr IV . Q7H42M [facility] Rx#:[id number] Vancomycin 1,500 mg In 250 Sodium Chloride 0.9% 250 ml @ 125 mls/hr IVPB Q8HR [facility] Rx#:[id number] Oral 1200 240 480 Output: Urine 2525 1450 850 Other: Voiding Method Urinal Urinal # Voids 1 1 # Bowel Movements 1 1 - Exam GENERAL EXAM: Alert, 49-year-old male patient on room air with pulse ox of 95%, has occasional congested cough, comfortable in no apparent distress. HEAD: Normocephalic/atraumatic. EYES: Normal reaction of pupils, equal size. Conjunctiva pink, sclera white. NOSE: Clear with pink turbinates. THROAT: No erythema or exudates. NECK: No masses, no JVD, no thyroid enlargement, no adenopathy. CHEST: No chest wall deformity. Symmetrical expansion. LUNGS: Equal air entry with diffuse wheezes, few scattered rhonchi CVS: Regular rate and rhythm, normal S1 and S2, no gallops, no murmurs, no rubs ABDOMEN: Soft, nontender. No hepatosplenomegaly, normal bowel sounds, no guarding or rigidity. EXTREMITIES: No clubbing, no edema, no cyanosis, 2+ pulses and upper and lower extremities. MUSCULOSKELETAL: Muscle strength and tone normal. SPINE: No scoliosis or deformity SKIN: No rashes, patient has multiple tattoos on his arms, abdomen, chest, legs CENTRAL NERVOUS SYSTEM: Alert and oriented -3. No focal deficits, tone is normal in all 4 extremities. PSYCHIATRIC: Alert and oriented -3. Appropriate affect. Intact judgment and insight. - Labs CBC & Chem 7: 10/26/20 07:29 10/27/20 08:02 Labs: Abnormal Lab Results - Last 24 Hours (Table) 10/26/20 10/26/20 10/26/20 Range/Units 11:52 16:40 20:37 POC Glucose (mg/dL) 119 H 141 H 118 H (75-99) mg/dL 10/27/20 Range/Units 06:02 POC Glucose (mg/dL) 128 H (75-99) mg/dL Microbiology - Last 24 Hours (Table) 10/24/20 06:04 Blood Culture - Preliminary Blood No Growth after 72 hours 10/23/20 13:10 Blood Culture - Preliminary Blood No Growth after 72 hours 10/23/20 15:30 Gram Stain - Final Sputum Sputum Culture - Final Estefany albicans Estefany sp,not albicans/galbr Assessment and Plan Assessment: 1 Acute hypoxic respiratory failure related to acute pneumonia, with the poss ibility of atypical versus aspiration related pneumonia. COVID-19 PCR was negative 2. CTA chest was negative for evidence of pulmonary embolism, it did show dense consolidations bilaterally 2 Elevated d-dimer, CTA chest was negative for any evidence for pulmonary embolism, lower extremity Dopplers are negative for DVT 3 Lactic acidosis related to pneumonia and sepsis, improved with IV hydration 4 History of drug abuse, and patient admits to methamphetamine, and marijuana use. Urine drug screen is positive for amphetamine, methamphetamine, and marijuana. Does have previous drug use history with cocaine, heroin, opiates, and prescription drugs 5 History of smoking, chronic and ongoing 6 Bipolar disorder 7 Anxiety 8 History of MRSA infection in the right knee 9 History of COPD, not oxygen dependent 10 History of seizures, he is not on any chronic seizure medications Plan: The patient was seen and evaluated by Dr. Oconnell Continued on Zosyn, Diflucan Continued on bronchodilators, IV Solu-Medrol NicoDerm patch in place Educated regarding importance of complete smoking cessation Follow-up chest x-ray in the a.m. We will continue to follow I, the cosigning physician, performed a history & physical examination of the patient. Lungs sounds with bilateral wheeze, scattered rhonchi. Maintaining good O2 saturations in the 90s on room air. I discussed the assessment and plan of care with my nurse practitioner, Eulalia Benitez. I attest to the above note as dictated by her.
[2020-10-27 11:51] LABS: Glucose,Whole Blood 123 mg/dL (75-99)
[2020-10-27] MEDS: ACETAMINOPHEN TAB 325 MG TAB PO PRN ×2 (12:17→18:19)
[2020-10-27] MEDS: hydrALAZINE HCL 20 MG/ML 1 ML VIAL IVP PRN (12:17)
--- NOTE | 2020-10-27 14:00 | P.PN ---
Progress Note - Text Progress Note Date: 10/27/20 Interval History: Patient was seen at bedside. The patient is reporting that he is feeling significant better today. He does recall some of his psychotic thoughts yesterday acknowledges that he ran out of the ordinary. He is currently not reporting any suicidal or homicidal ideation, intention, and/or plan. He is not reporting any auditory or visual hallucinations. He is currently denying any paranoia or other delusions. The patient does acknowledge that he does have a significant history of psychosis and bipolar disorder. He was counseled at length that it is likely a combination of his methamphetamine abuse, active infection, current hospitalization, and his underlying bipolar disorder that led to this acute presentation. He is adherent with his medications and is reporting that they are helping. He is not endorsing any significant side effects at this time. He did require Haldol PRN for feeling agitated/anxious. Mental Status Exam: General Appearance: Patient appears to be stated age is alert, directable, and cooperative. Approach is friendly. Behavior: Patient is calmly lying in bed without any agitated behavior. Speech: Patient's speech is fluent and nonpressured. Mood/Affect: Mood is feeling better. Affect is euthymic to bright. Suicidality/Homicidality: Patient denies having any suicidal or homicidal ideation, intention, and/or plan. Perceptions: Patient denies any visual hallucinations and denies any auditory hallucinations Though content/process: There is no evidence of any delusional thought content and thought process is linear and goal-directed. Memory and concentration: AOX3, grossly intact for the purposes of this session Judgment and insight: Improving mildly Vital Signs Temp 98.1 F 10/27/20 12:10 Pulse 56 L 10/27/20 12:10 Resp 18 10/27/20 12:10 BP 167/89 10/27/20 12:10 Pulse Ox 96 10/27/20 12:10 Intake & Output 10/26/20 10/27/20 10/27/20 18:59 06:59 18:59 Intake Total 2070 240 600 Output Total 2525 1450 1300 Balance -049 -1210 -700 Weight 77.5 kg Intake: Intake, IV Titration 870 Amount Piperacillin-Tazobactam 3 100 .375 gm In Sodium Chloride 0.9% 100 ml @ 25 mls/hr IVPB Q8H [facility] Rx#: [id number] Sodium Chloride 0.9% 1, 520 000 ml @ 130 mls/hr IV . Q7H42M [facility] Rx#:[id number] Vancomycin 1,500 mg In 250 Sodium Chloride 0.9% 250 ml @ 125 mls/hr IVPB Q8HR [facility] Rx#:[id number] Oral 1200 240 600 Output: Urine 2525 1450 1300 Other: Voiding Method Urinal Urinal Urinal # Voids 1 1 # Bowel Movements 1 1 Assessment: Acute hypoxic respiratory failure related to acute pneumonia Bipolar disorder, type I, with psychotic features Polysubstance abuse - methamphetamines, cannabis, nicotine Plan: -Continue your medical management for acute hypoxic respiratory failure -At this time patient DOES meet criteria for inpatient psychiatric admission due to his psychotic presentation. The patient is presenting much better today is not endorsing any significant psychotic symptoms. He is not endorsing any auditory or visual hallucinations or any delusional thought processes. His affect has improved significantly. He is not presenting with any imminent risk of harm to self or others at this time. We'll continue to monitor from a psychiatric standpoint for another 24 hours before rescinding our recommendation for inpatient hospitalization. -Would recommend the following medication changes/additions: Increase Seroquel to 150 mg by mouth at bedtime for mood stabilization/psychosis Continue Cogentin 0.5 mg by mouth twice a day Continue Haldol and Ativan as needed for agitation -Discontinue 1:1 sitter. -Will continue to follow along
--- NOTE | 2020-10-27 14:10 | P.PN ---
Subjective Progress Note Date: 10/27/20 HISTORY OF PRESENT ILLNESS 49-year-old male one of pupil clinic patient with past medical history of hypertension, COPD, seizure, bipolar and anxiety attacks, chronic smoking and c hronic drug use who was in the hospital last over a year ago for worsening infection of the time was treated done well. Patient has not seen anybody for over a year has not taking any of his medication. 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 Patient also continue to use marijuana along with methamphetamine along with benzodiazepine he is not using cocaine or heroine lately Still smoking over a pack a day, He has been not feeling well for over 1 week with worsening shortness of breath and dyspnea along with cough and worsening shortness of breath with minimum exertion. Patient ended up coming to the emergency department at [facility] on 10/24/2020omplaining of dyspnea, cough, vomiting and diarrhea has been having fever and chills as well, to testing was negative, chest x-ray showed bilateral infiltrate with multifocal pneumonia,his labs showed elevated lactic acid 4.6 with troponin of 0.201 drug screen was positive for amphetamine, methamphetamine and marijuana. patient was started on O2 did not require any BiPAP started on nebulizer management along with steroid vancomycin and Zosyn with his d-dimer been elevated patient was started on heparin drip initially, CT of the lung did not show any embolism but just infiltrate we will stop anticoagulation is due DVT prophylaxis at this point patient is not having any significant anginal chest pain but is having chest wall pain as well. 10/25: Patient was seen cardiology was diagnosed with non-ST MA, echocardiogram still showing good ejection fraction at this point, no intervention schedule at this point till infection is a clear patient might benefit from medical m anagement till his bilateral pneumonia is a clear may be testing as an outpatient specially patient is asymptomatic with his ischemic cardiomyopathy or non-ST MA this time. 10/26 patient is doing slightly but better medically has pneumonia is under well controlled. At seen cardiology today and the plan is to continue current medical management testing as an outpatient eventually. His blood pressure was quite bit high today was started on IV hydralazine plus titrate his beta kaila and will add clonidine on an as-needed basis as well. He is more irritable today we will ask psych for evaluation specially with his multi drug dependency. 10/27: Patient has been seen and followed by psychiatry. Mr. boateng was called for patient had significant psychotic thoughts yesterday and patient yesterday and is currently under petition. Psychiatry has recommended increasing Seroquel 250 mg at bedtime, continue Cogentin 0.5 mg twice daily and continue Haldol and Ativan as needed for agitation. Sitter has been discontinued. Cardiology has made adjustments to blood pressure medications and added chlorthalidone yesterday and may consider losartan with plan to monitor for another 24 hours. He shows heart rate has been down to 38 and Lopressor changed to Coreg 3.125 mg twice daily with parameters to hold if heart rate is less than 50. Anticipate patient will be ready medically for discharge to the mental health unit tomorrow. REVIEW OF SYSTEMS Constitutional: No fever, no chills, no night sweats. No weight change. No weakness, fatigue or lethargy. No daytime sleepiness. EENT: No headache. No blurred vision or double vision, no loss of vision. No loss of Hearing, no ringing in the ears, no dizziness. No nasal drainage or congestion. No epistaxis. No sore throat. Lungs: Denies shortness of breath, cough, wheezes, dyspnea with exertion. Cardiovascular: Denies chest wall pain, no lower extremity edema. No palpitations. positive PND and orthopnea. No lightheadedness or dizziness. No syncopal episodes. Abdominal: Denies abdominal pain with nausea vomiting and diarrhea or constipation no tarry stool mild loss of appetite. Genitourinary: No dysuria, increased frequency, urgency. No urinary retention. Musculoskeletal: No myalgias. No muscle weakness, no gait dysfunction, no frequent falls. No back pain. No neck pain. Integumentary: No wounds, no lesions. No rash or pruritus. No unusual bruising. No change in hair or nails. Neurologic: No aphasia. No facial droop. No change in mentation. No head injury. No headache. No paralysis. No paresthesia. Psychiatric: No depression. No anxiety. No mood swings. Endocrine: No abnormal blood sugars. No weight change. No excessive sweating or thirst. No cold intolerance. PHYSICAL EXAMINATION Gen: This is 49-year-old resting in bed and appears to be comfortable and in no acute distress HEENT: Head is atraumatic, normocephalic. Pupils equal, round. Sclerae is anicteric. NECK: Supple. No JVD. No lymphadenopathy. No thyromegaly. LUNGS: positive chest wall pain especially in the left side, positive crackles in the bases worsening of the right than the left side HEART: Regular rate and rhythm. No murmur. ABDOMEN: Soft. Bowel sounds are present. No masses. No tenderness. EXTREMITIES: No pedal edema. No calf tenderness. patient has bugs bite all over his body NEUROLOGICAL: Patient is awake, mild irritability, alert and oriented x3. Cranial nerves 2 through 12 are grossly intact. ASSESSMENT AND PLAN 1. acute hypoxic respiratory failure: Secondary to bilateral pneumonia and possible fluid overload. Continue DuoNeb treatments 4 times daily and as needed, Solu-Medrol 40 mg IV every 8 hours, Zosyn. Patient is off oxygen. 2. COPD exacerbation. Continue updraft with DuoNeb. 3. aspiration pneumonia and sepsis. Continue Zosyn seems to respond very well. His sputum culture came back positive with Estefany albicans we will add Diflucan for a few days. 4. Type II myocardial infarction: Continue medical management no intervention is needed at this point. 5. Hypertension. Continue chlorthalidone 25 mg daily, losartan 50 mg daily, continue to monitor closely. 6. Bradycardia. Lopressor changed to Coreg 3.125 mg twice daily with parameters to hold for heart rate less than 50. 7. mild tremor and irritability: Most likely from withdrawal from drugs, patient will be watch carefully use lorazepam on an as-needed basis to help him out event patient looks and act like somebody drink regularly. 8. chronic smoking: Start patient on nicotine patch at this point. CODE STATUS: Full code. DISCHARGE PLAN MHU on Monday Impression and plan of care have been directed as dictated by the signing physician. Shira Tyler nurse practitioner acting as scribe for signing physician. Objective - Vital Signs Vital signs: Vital Signs Temp 97.5 F L 10/27/20 09:35 Pulse 59 L 10/27/20 09:35 Resp 20 10/27/20 09:35 BP 163/87 10/27/20 09:35 Pulse Ox 95 10/27/20 09:35 Intake & Output 10/26/20 10/27/20 10/27/20 18:59 06:59 18:59 Intake Total 2070 240 480 Output Total 2525 1450 850 Balance -601 -6480 -166 Weight 77.5 kg Intake: Intake, IV Titration 870 Amount Piperacillin-Tazobactam 3 100 .375 gm In Sodium Chloride 0.9% 100 ml @ 25 mls/hr IVPB Q8H [facility] Rx#: [id number] Sodium Chloride 0.9% 1, 520 000 ml @ 130 mls/hr IV . Q7H42M [facility] Rx#:[id number] Vancomycin 1,500 mg In 250 Sodium Chloride 0.9% 250 ml @ 125 mls/hr IVPB Q8HR [facility] Rx#:[id number] Oral 1200 240 480 Output: Urine 2525 1450 850 Other: Voiding Method Urinal Urinal # Voids 1 1 # Bowel Movements 1 1 - Labs CBC & Chem 7: 10/26/20 07:29 10/27/20 08:02 Labs: Abnormal Lab Results - Last 24 Hours (Table) 10/26/20 10/26/20 10/26/20 Range/Units 11:52 16:40 20:37 POC Glucose (mg/dL) 119 H 141 H 118 H (75-99) mg/dL 10/27/20 Range/Units 06:02 POC Glucose (mg/dL) 128 H (75-99) mg/dL Microbiology - Last 24 Hours (Table) 10/24/20 06:04 Blood Culture - Preliminary Blood No Growth after 72 hours 10/23/20 13:10 Blood Culture - Preliminary Blood No Growth after 72 hours 10/23/20 15:30 Gram Stain - Final Sputum Sputum Culture - Final Estefany albicans Estefany sp,not albicans/galbr
[2020-10-27 16:40] LABS: Glucose,Whole Blood 141 mg/dL (75-99)
[2020-10-27] MEDS: carvediloL 3.125 MG TAB PO SCH (16:57)
[2020-10-27 19:16] LABS: Hepatitis A Antibody IgM Non-Reactive (Non-Reactive); Hepatitis B Core IgM Non-Reactive (Non-Reactive); Hepatitis B Surface Antigen Non-Reactive (Non-Reactive); Hepatitis C IgG Antibody Reactive (Non-Reactive)
[2020-10-27] MEDS ORDERED: QUEtiapine 50 MG TAB PO SCH (21:00)
[2020-10-27 21:04] LABS: Glucose,Whole Blood 145 mg/dL (75-99)
[2020-10-28] MEDS: PIPERACILLIN-TAZOBACTAM 3.375 GM in SODIUM CHLORIDE 0.9% 100 ML IVPB SCH (01:08)
[2020-10-28] MEDS: methylPREDNISolone SOD SUCCI 40 MG/ML 1 ML VIAL IV SCH ×2 (01:08→15:45)
[2020-10-28 06:01] LABS: Glucose,Whole Blood 96 mg/dL (75-99)
[2020-10-28] MEDS: INSULIN ASPART (NovoLOG) 100 UNIT/ML VIAL SQ SCH ×2 (06:28→12:09)
[2020-10-28] MEDS: carvediloL 3.125 MG TAB PO SCH (06:30)
[2020-10-28] MEDS: THIAMINE 100 MG TAB PO SCH (06:30)
[2020-10-28] MEDS: ACETAMINOPHEN TAB 325 MG TAB PO PRN (06:30)
[2020-10-28] MEDS: IPRATROPIUM-ALBUTEROL 3 ML NEB INHALATION SCH ×3 (07:52→15:43)
[2020-10-28] MEDS ORDERED: SPIRONOLACTONE 25 MG TAB PO SCH (09:00)
[2020-10-28] MEDS ORDERED: AMOXIC-POT CLAV 875-125MG 1 EACH TAB PO SCH (09:00)
[2020-10-28] MEDS ORDERED: LOSARTAN 50 MG TAB PO SCH (09:00)
[2020-10-28] MEDS: ATORVASTATIN 20 MG TAB PO SCH (09:17)
[2020-10-28] MEDS: ASPIRIN 81 MG PO SCH (09:18)
[2020-10-28] MEDS: MAGNESIUM OXIDE 400 MG TAB PO SCH (09:18)
[2020-10-28] MEDS: FAMOTIDINE 20 MG TAB PO SCH (09:18)
[2020-10-28] MEDS: BENZTROPINE MESYLATE 0.5 MG TAB PO SCH (09:19)
[2020-10-28] MEDS: ENOXAPARIN 40 MG/0.4 ML SYRINGE SQ SCH (09:19)
[2020-10-28] MEDS: NICOTINE 14MG/24HR PATCH TRANSDERM SCH (09:19)
[2020-10-28] MEDS: FLUCONAZOLE 150 MG TAB PO SCH (09:20)
[2020-10-28] MEDS: CHLORTHALIDONE 25 MG TAB PO SCH (09:20)
[2020-10-28 09:25] VITALS: RESP 16; TEMP 97.6
--- NOTE | 2020-10-28 09:56 | P.PN ---
Subjective Progress Note Date: 10/28/20 HISTORY OF PRESENT ILLNESS: This is a pleasant 49-year-old with past medical history significant for meth abuse, marijuana abuse, COPD, seizure disorder, hypertension, tobacco abuse, bipolar disorder who presents secondary to 2 days of cough, shortness breath. Patient appears in a fair amount of distress currently, apparently on CIWA protocol and admits she has severe anxiety. He is unsure if she is actually been having any fevers or chills recently. 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 He admits to some atypical chest pain which is worse when he takes a deep breath and area he was found to be hypoxic with oxygen saturation in the 80s, negative for COVID-19 2, d-dimer elevated at 5 and a CTA PE protocol showed no pulmonary embolism and consolidation consistent with pneumonia. He admits he is using meth however no IV drug abuse, previously used some however not in the last few months. He admits to chronic back pain since his back surgery and that the back pain is his main concern right now as well as his shortness breath. He initially had lactic acidosis at 5.0, currently improved to 1.9 today. He denies ever seeing a waterproofer helper, believes he may have had a heart catheterization around the time of his back surgery however is unsure. Denies any history of PCI or stents. EKG shows sinus tachycardia, normal axis, nonspecific upsloping ST depressions in the lateral leads. Echo 10/23/2020 shows EF 50-55%, trace tricuspid regurgitation, mild LVH. Initial troponin was 0.2 however no repeat was performed. 10/26/2020 The patient is a 49-year-old gentleman with history of drug abuse as well as multiple comorbid conditions was admitted to the hospital with pneumonia consulted for chest discomfort which we felt is atypical for angina. The tropon in came in to be slightly abnormal and consistent was type II myocardial infarction with the patient was seen this morning he is chest pain-free. The pressure continues to be elevated and he is on calcium channel kaila with Norvasc as well as he is on metoprolol. I am going to add chlorthalidone to the current medical regimen in addition to beta kaila and calcium channel kaila. He is on aspirin and started we'll continue that. The echo revealed normal left ventricular systolic function without significant valvular abnormalities. 10/27/2020 He was seen this morning. His chest pain-free. He denies any dizziness or lightheadedness or any feeling of heart racing or fluttering. Yesterday I added chlorthalidone to the current medical regimen to control the blood pressure. His pressure is slightly better today. He is on steroid which is not helping in getting the blood pressure under control. The echo revealed normal left ventricle systolic function without any significant valvular abnormalities. He is on aspirin and metoprolol and statin. 10/28/2020 Patient examined this morning at the bedside. He denies chest pain or pressure. Denies shortness of breath. His blood pressure remains elevated this morning with a systolic in the 180s. PHYSICAL EXAM: VITAL SIGNS: Reviewed. GENERAL: Well-developed in no acute distress. NECK: Supple. No JVD or thyromegaly LUNGS: Respirations even and unlabored. Lungs diminished to auscultation bilaterally. HEART: Regular rate and rhythm. S1 and S2 heard. EXTREMITIES: Normal range of motion. No clubbing or cyanosis. Peripheral pulses intact. No lower extremity edema ASSESSMENT: Abnormal troponins, Type II WI Pleuritic chest pain, resolved line acute exacerbation of COPD Aspiration pneumonia with sepsis History of meth abuse, marijuana abuse, tobacco abuse PLAN: Continue to monitor blood pressure Continue current cardiac medications Increase Losartan to 100mg daily Add Aldactone 25mg daily Further recommendations pending patient course Nurse practitioner note has been reviewed by physician. Signing provider agrees with the documented findings, assessment, and plan of care. Objective - Vital Signs Vital signs: Vital Signs Temp 97.6 F 10/28/20 08:00 Pulse 76 10/28/20 08:04 Resp 16 10/28/20 08:00 BP 137/82 10/28/20 08:00 Pulse Ox 95 10/28/20 08:00 Intake & Output 10/27/20 10/28/20 10/28/20 18:59 06:59 18:59 Intake Total 1017 700 Output Total 3025 1850 Balance -2007 Weight 78 kg Intake: Intake, IV Titration 100 Amount Piperacillin-Tazobactam 3 100 .375 gm In Sodium Chloride 0.9% 100 ml @ 25 mls/hr IVPB Q8H [facility] Rx#: [id number] Oral 1017 600 Output: Urine 3025 1850 Other: Voiding Method Urinal Urinal # Voids 1 2 - Labs CBC & Chem 7: 10/26/20 07:29 10/27/20 08:02 Labs: Abnormal Lab Results - Last 24 Hours (Table) 10/27/20 10/27/20 10/27/20 Range/Units 08:02 08:02 11:47 POC Glucose (mg/dL) 123 H (75-99) mg/dL Procalcitonin 2.69 H (0.02-0.09) ng/mL Hep C IgG Ab Reactive A (Non-Reactive) 10/27/20 10/27/20 Range/Units 16:38 20:53 POC Glucose (mg/dL) 141 H 145 H (75-99) mg/dL Procalcitonin (0.02-0.09) ng/mL Hep C IgG Ab (Non-Reactive) Microbiology - Last 24 Hours (Table) 10/24/20 06:04 Blood Culture - Preliminary Blood No Growth after 96 hours 10/23/20 13:10 Blood Culture - Preliminary Blood No Growth after 96 hours
--- NOTE | 2020-10-28 11:14 | P.PN ---
Subjective Progress Note Date: 10/28/20 Principal diagnosis: Acute hypoxic respiratory failure secondary to pneumonia This is a 49-year-old with past medical history of COPD, seizures, hypertension, chronic smoker, drug abuse, bipolar disorder and anxiety, who came into the emergency department on 10/23/2020 complaining of couple days of fever, not feeling well, coughing, shortness of breath. Chest x-ray showed bilateral infiltrate with small pleural effusion, diffuse interstitial pattern, no evidence of pneumothorax. Heart size was normal. EKG showed sinus tachycardia with a rate of 113 BPM, patient was hypoxic satting at 87%, she was placed on supplemental oxygen, currently he is on 4 L. He was tested for COVID 19 via PCR test twice, and both times he was negative. His d-dimer was elevated on admission at 5.72, and CTA chest was completed showing no acute pulmonary embolism, it did show dense consolidations in the posterior upper lung paris, some patchy density through the right mid and lingular regions and there were posterior lung base and right middle lobe consolidations present. Patient st ates he also had bouts of diarrhea, nausea and vomiting at home. His white count was 12.1, hemoglobin was 16.1, sodium is 131, potassium is 5.2, chloride is 100, CO2 16, BUN is 34, creatinine was 1.2, lactic acid was elevated at 5.0, magnesium was 1.5, AST was 242, ALT was 170, alkaline phosphatase was 79, LDH is 1463, CRP was greater than 27, troponin was 0.201, his urine drug screen came back positive for amphetamines, methamphetamines, and marijuana. In the emergency department she was started on empiric antibiotics in the form of Rocephin and Zithromax, he was given 2 L and fluid boluses, and currently his IV fluids are going at 130 ML per hour with 0.9 normal saline. He remains on 3 L of oxygen, pulse ox is 95%, afebrile overnight, at times slightly tachycardic, blood pressure is stable, has a congested cough, but no hemoptysis, no chest discomfort. Currently his lactic acid is down to 1.9. His white blood cell count is 12.9, hemoglobin is 13.4. Quite wheezy and congested on today's exam. Reevaluated today on 10/25/2020, patient is feeling better today, breathing easier. Patient was admitted and we saw him yesterday on consultation, and I felt that the patient has bilateral pneumonia, most likely secondary to aspiration. Patient was placed on antibiotics in the form of vancomycin and Zosyn, he was also placed on bronchodilators and IV Solu-Medrol. Robbins that there he has some significant component of COPD with acute exacerbation. Again the patient is feeling better today, breathing easier. Afebrile, vital signs are stable, he is on O2 at 2 L with O2 sat showed 96%. CBC count is 12.3 hemoglobin is 11.7, lites are normal renal profile is normal. Blood cultures are negative so far, and sputum cultures are nondiagnostic. On 10/26/2020 patient seen in follow-up on selective care unit, he is much more awake and appropriate today, he is oriented 3, he is calm and cooperative, no tremors, no agitation no confusion noted on today's exam. Pulse ox is 93% on room air, his been afebrile. Pains on Zosyn and vancomycin for possibility of aspiration pneumonia, today's chest x-ray shows persistence perihilar basilar and right upper lobe airspace infiltrates without significant change. He remains on IV steroids in the form of Solu-Medrol 40 mg every 8 hours, and nebulized bronchodilators, his sputum culture showed Estefany albicans and Estefany species not albicans or glabrata. His labs have been reviewed, his white blood cell count is relatively stable at 11.1, slightly improved, hemoglobin is 12.2, sodium is 142, potassium is 4.2, chloride is 114, CO2 17, B1 is 20, creatinine 0.9. Patient's pro calcitonin level was significantly elevated at 28.65, confirming bacterial pneumonia. The patient is seen today 10/27/2000 on the selective care unit. He is currently sitting up in bed. Awake and alert in no acute distress. Continues with a loose nonproductive cough. No fever or chills. Maintaining O2 saturations in the mid 90s on room air. Creatinine 0.88. Blood glucose 128. The patient did get acutely agitated and a Mr. Borrero was called on him yesterday. He received IM Haldol. He is currently calm and cooperative. He remains on bronchodilators, IV Solu-Medrol, Diflucan, antibiotics in the form of Zosyn. Lovenox for DVT prophylaxis. The patient is seen today 10/28/2020 in follow-up on the selective care unit. He is currently sitting up in bed. Awake and alert in no acute distress. Maintaining O2 saturations in the 90s on room air. He denies any worsening shortness of breath, cough or congestion. Currently on Zosyn and bronchodilators. NicoDerm patch in place. Objective - Vital Signs Vital signs: Vital Signs Temp 97.6 F 10/28/20 08:00 Pulse 76 10/28/20 08:04 Resp 16 10/28/20 08:00 BP 137/82 10/28/20 08:00 Pulse Ox 95 10/28/20 08:00 Intake & Output 10/27/20 10/28/20 10/28/20 18:59 06:59 18:59 Intake Total 1017 700 480 Output Total 3025 1850 475 [facility] -2007 5 Weight 78 kg Intake: Intake, IV Titration 100 Amount Piperacillin-Tazobactam 3 100 .375 gm In Sodium Chloride 0.9% 100 ml @ 25 mls/hr IVPB Q8H [facility] Rx#: [id number] Oral 1017 600 480 Output: Urine 3025 1850 475 Other: Voiding Method Urinal Urinal Urinal # Voids 1 2 1 - Exam GENERAL EXAM: Alert, 49-year-old male patient on room air with pulse ox of 95%, comfortable in no apparent distress. HEAD: Normocephalic/atraumatic. EYES: Normal reaction of pupils, equal size. Conjunctiva pink, sclera white. NOSE: Clear with pink turbinates. THROAT: No erythema or exudates. NECK: No masses, no JVD, no thyroid enlargement, no adenopathy. CHEST: No chest wall deformity. Symmetrical expansion. LUNGS: Equal air entry with bilateral end expiratory wheeze, diminished CVS: Regular rate and rhythm, normal S1 and S2, no gallops, no murmurs, no rubs ABDOMEN: Soft, nontender. No hepatosplenomegaly, normal bowel sounds, no g uarding or rigidity. EXTREMITIES: No clubbing, no edema, no cyanosis, 2+ pulses and upper and lower extremities. MUSCULOSKELETAL: Muscle strength and tone normal. SPINE: No scoliosis or deformity SKIN: No rashes, patient has multiple tattoos on his arms, abdomen, chest, legs CENTRAL NERVOUS SYSTEM: Alert and oriented -3. No focal deficits, tone is normal in all 4 extremities. PSYCHIATRIC: Alert and oriented -3. Appropriate affect. Intact judgment and insight. - Labs CBC & Chem 7: 10/26/20 07:29 10/27/20 08:02 Labs: Abnormal Lab Results - Last 24 Hours (Table) 10/27/20 10/27/20 10/27/20 Range/Units 08:02 08:02 11:47 POC Glucose (mg/dL) 123 H (75-99) mg/dL Procalcitonin 2.69 H (0.02-0.09) ng/mL Hep C IgG Ab Reactive A (Non-Reactive) 10/27/20 10/27/20 Range/Units 16:38 20:53 POC Glucose (mg/dL) 141 H 145 H (75-99) mg/dL Procalcitonin (0.02-0.09) ng/mL Hep C IgG Ab (Non-Reactive) Microbiology - Last 24 Hours (Table) 10/24/20 06:04 Blood Culture - Preliminary Blood No Growth after 96 hours 10/23/20 13:10 Blood Culture - Preliminary Blood No Growth after 96 hours Assessment and Plan Assessment: 1 Acute hypoxic respiratory failure related to acute pneumonia, with the possibility of atypical versus aspiration related pneumonia. COVID-19 PCR was negative 2. CTA chest was negative for evidence of pulmonary embolism, it did show dense consolidations bilaterally 2 Elevated d-dimer, CTA chest was negative for any evidence for pulmonary embolism, lower extremity Dopplers are negative for DVT 3 Lactic acidosis related to pneumonia and sepsis, improved with IV hydration 4 History of drug abuse, and patient admits to methamphetamine, and marijuana use. Urine drug screen is positive for amphetamine, methamphetamine, and marijuana. Does have previous drug use history with cocaine, heroin, opiates, and prescription drugs 5 History of smoking, chronic and ongoing 6 Bipolar disorder 7 Anxiety 8 History of MRSA infection in the right knee 9 History of COPD, not oxygen dependent 10 History of seizures, he is not on any chronic seizure medications 11 Hepatitis C infection Plan: The patient was seen and evaluated by Dr. Oconnell He is cleared for discharge from the pulmonary standpoint Discontinue Zosyn, start Augmentin Discontinue steroids NicoDerm patch in place Educated regarding importance of complete smoking cessation I, the cosigning physician, performed a history & physical examination of the patient. Lungs sounds with end expiratory wheeze, diminished. Maintaining good O2 saturations in the 90s on room air. I discussed the assessment and plan of care with my nurse practitioner, Eulalia Benitez. I attest to the above note as dictated by her.
[2020-10-28 11:46] LABS: Glucose,Whole Blood 132 mg/dL (75-99)
[2020-10-28 11:47] VITALS: BMI 22.6
[2020-10-28 12:14] VITALS: BP 145/85
--- NOTE | 2020-10-28 13:35 | P.PN ---
Progress Note - Text Progress Note Date: 10/28/20 Interval History: Patient was seen at bedside. The patient is not endorsing any suicidal or ho micidal ideation, intention, and/or plan. He is not endorsing any auditory or visual hallucinations. He denies any paranoia or other delusions. He is alert and oriented in all spheres. He acknowledges his history of psychosis and bipolar disorder and understands that he should remain on his medications. He is future-oriented. He reports no side effects of his medications. Mental Status Exam: General Appearance: Patient appears to be stated age is alert, directable, and cooperative. Approach is friendly. Behavior: Patient is calmly lying in bed without any agitated behavior. Speech: Patient's speech is fluent and nonpressured. Mood/Affect: Mood is good. Affect is euthymic to bright. Suicidality/Homicidality: Patient denies having any suicidal or homicidal ideation, intention, and/or plan. Perceptions: Patient denies any visual hallucinations and denies any auditory hallucinations Though content/process: There is no evidence of any delusional thought content and thought process is linear and goal-directed. Memory and concentration: AOX3, grossly intact for the purposes of this session Judgment and insight: Improving mildly Assessment: Acute hypoxic respiratory failure related to acute pneumonia Bipolar disorder, type I, with psychotic features Polysubstance abuse - methamphetamines, cannabis, nicotine Plan: -Continue your medical management for acute hypoxic respiratory failure. -At this time patient DOES NOT meet criteria for inpatient psychiatric admission. He is no longer endorsing an imminent risk of harm to self or others. He is not endorsing any suicidal or homicidal ideation, intention, and/or plan. No psychotic symptoms are present at this time. -Would recommend the following medication changes/additions: Continue Seroquel 150 mg by mouth at bedtime for mood stabilization/psychosis Continue Cogentin 0.5 mg by mouth twice a day Continue Haldol and Ativan as needed for agitation -Patient is cleared psychiatrically for discharge. Recommend outpatient follow- up. Thank you for this consult.
--- NOTE | 2020-10-28 15:34 | P.DS ---
Providers Date of admission: 10/23/20 14:43 Expected date of discharge: 10/28/20 Attending physician: Maday Albrecht MD Consults: 10/23/20 14:43 Consult Physician Routine Consulting Provider: Amirah Machuca Consult Reason/Comments: Bilateral pneumonia, suspect coronavirus Do you want consulting provider notified?: Yes 10/23/20 14:46 Consult Physician Routine Consulting Provider: Elan Aguero Consult Reason/Comments: Troponin elevation, bilateral pneumonia, suspect Covid Do you want consulting provider notified?: Yes 10/26/20 10:59 Consult Physician Routine Consulting Provider: Nick David Consult Reason/Comments: polysubstance abuse Do you want consulting provider notified?: Yes Primary care physician: [facility] Course: HISTORY OF PRESENT ILLNESS 49-year-old 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 Patient has not seen anybody for over a year has not taking any of his medication. 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 Patient also continue to use marijuana along with methamphetamine along with benzodiazepine he is not using cocaine or heroine lately Still smoking over a pack a day, He has been not feeling well for over 1 week with worsening shortness of breath and dyspnea along with cough and worsening shortness of breath with minimum exertion. Patient ended up coming to the emergency department at [facility] on 1complaining of dyspnea, cough, vomiting and diarrhea has been having fever and chills as well, preventative to 19 testing was negative, chest x-ray showed bilateral infiltrate with multifocal pneumonia,his labs showed elevated lactic acid 4.6 with troponin of 0.201 drug screen was positive for amphetamine, methamphetamine and marijuana. patient was started on O2 did not require any BiPAP started on nebulizer management along with steroid vancomycin and Zosyn with his d-dimer been elevated patient was started on heparin drip initially, CT of the lung did not show any embolism but just infiltrate we will stop anticoagulation is due DVT prophylaxis at this point patient is not having any significant anginal chest pain but is having chest wall pain as well. 10/25: Patient was seen cardiology was diagnosed with non-ST [place], echocardiogram still showing good ejection fraction at this point, no intervention schedule at this point till infection is a clear patient might benefit from medical ma nagement till his bilateral pneumonia is a clear may be testing as an outpatient specially patient is asymptomatic with his ischemic cardiomyopathy or non-ST [place] this time. 10/26 patient is doing slightly but better medically has pneumonia is under well controlled. At seen cardiology today and the plan is to continue current medical management testing as an outpatient eventually. His blood pressure was quite bit high today was started on IV hydralazine plus titrate his beta kaila and will add clonidine on an as-needed basis as well. He is more irritable today we will ask psych for evaluation specially with his multi drug dependency. 10/27: Patient has been seen and followed by psychiatry. Mr. boateng was called for patient had significant psychotic thoughts yesterday and patient yesterday and is currently under petition. Psychiatry has recommended increasing Seroquel 250 mg at bedtime, continue Cogentin 0.5 mg twice daily and continue Haldol and Ativan as needed for agitation. Sitter has been discontinued. Cardiology has made adjustments to blood pressure medications and added chlorthalidone yesterday and may consider losartan with plan to monitor for another 24 hours. He shows heart rate has been down to 38 and Lopressor changed to Coreg 3.125 mg twice daily with parameters to hold if heart rate is less than 50. Anticipate patient will be ready medically for discharge to the mental health unit tomorrow. 10/28: She was prepared for discharge to the mental health unit today. Patient denies any new complaints. Patient has been seen by psychiatry today with recommendations for discharge home with Seroquel 150 mg at bedtime, Cogentin 0.5 mg twice daily, Haldol and Ativan as needed for agitation. Patient is cleared psychiatrically for discharge. Recommend outpatient follow-up. Patient has been cleared for discharge by Dr. Oconnell. We will discharge patient home today in stable condition. DISCHARGE DIAGNOSES 1. acute hypoxic respiratory failure: Secondary to bilateral pneumonia and possible fluid overload. 2. COPD exacerbation. 3. aspiration pneumonia and sepsis. 4. Type II myocardial infarction 5. Hypertension. 6. Bradycardia. 7. mild tremor and irritability: Most likely from withdrawal from drugs. 8. chronic smoking DISCHARGE PLAN Home Impression and plan of care have been directed as dictated by the signing physician. Shira Tyler nurse practitioner acting as scribe for signing physician. Patient Condition at Discharge: Serious Plan - Discharge Summary New Discharge Prescriptions: New Spironolactone [Aldactone] 25 mg PO DAILY #30 tab Aspirin 81 mg PO DAILY #0 tab Amoxic-Pot Clav 875-125Mg [Augmentin 875-125] 1 each PO Q12HR #14 tab carvediloL [Coreg] 3.125 mg PO BID-W/MEALS #60 tab Fluconazole [Diflucan] 150 mg PO DAILY #5 tab Chlorthalidone [Hygroton] 25 mg PO DAILY #30 tab Atorvastatin [Lipitor] 20 mg PO DAILY #30 tab Thiamine [Vitamin B-1] 100 mg PO BID-W/MEALS tab QUEtiapine [SEROquel] 150 mg PO HS #90 tab Benztropine Mesylate [Cogentin] 0.5 mg PO BID tab Losartan [Cozaar] 100 mg PO DAILY #30 tab Nicotine 14Mg/24Hr Patch [Habitrol] 1 patch TRANSDERM DAILY patch Magnesium Oxide [Mag-Ox] 400 mg PO BID tab Benztropine Mesylate [Cogentin] 0.5 mg PO BID #60 tablet Discharge Medication List Amoxic-Pot Clav 875-125Mg [Augmentin 875-125] 1 each PO Q12HR #14 tab 10/28/20 [Rx] Aspirin 81 mg PO DAILY #0 tab 10/28/20 [Rx] Atorvastatin [Lipitor] 20 mg PO DAILY #30 tab 10/28/20 [Rx] Benztropine Mesylate [Cogentin] 0.5 mg PO BID tab 10/28/20 [Rx] Benztropine Mesylate [Cogentin] 0.5 mg PO BID #60 tablet 10/28/20 [Rx] Chlorthalidone [Hygroton] 25 mg PO DAILY #30 tab 10/28/20 [Rx] Fluconazole [Diflucan] 150 mg PO DAILY #5 tab 10/28/20 [Rx] Losartan [Cozaar] 100 mg PO DAILY #30 tab 10/28/20 [Rx] Magnesium Oxide [Mag-Ox] 400 mg PO BID tab 10/28/20 [Rx] Nicotine 14Mg/24Hr Patch [Habitrol] 1 patch TRANSDERM DAILY patch 10/28/20 [Rx] QUEtiapine [SEROquel] 150 mg PO HS #90 tab 10/28/20 [Rx] Spironolactone [Aldactone] 25 mg PO DAILY #30 tab 10/28/20 [Rx] Thiamine [Vitamin B-1] 100 mg PO BID-W/MEALS tab 10/28/20 [Rx] carvediloL [Coreg] 3.125 mg PO BID-W/MEALS #60 tab 10/28/20 [Rx] Follow up Appointment(s)/Referral(s): [facility] - [facility] Week Patient Instructions/Handouts: Viral Pneumonia (DC) Activity/Diet/Wound Care/Special Instructions: Psychiatric follow-up within one week Discharge Disposition: HOME SELF-CARE
[2020-10-28 15:46] VITALS: PULSE 80
== END 2020-10-28 16:16 | disposition home or self-care (01) | DRG 871 ==
LOC: EC 11:05 → 3SCARD 14:43
PROVIDERS: ADMIT Internal Medicine; ATTEND Internal Medicine
DX: A41.9 Sepsis, unspecified organism (principal); J96.01 Acute respiratory failure with hypoxia; I21.A1 Myocardial infarction type 2; J69.0 Pneumonitis due to inhalation of food and vomit; F19.239 Other psychoactive substance dependence with withdrawal, unspecified; J44.1 Chronic obstructive pulmonary disease with (acute) exacerbation; E87.2 Acidosis; E86.0 Dehydration; I10 Essential (primary) hypertension; Z20.822 Contact with and (suspected) exposure to COVID-19; Z79.82 Long term (current) use of aspirin; Z79.899 Other long term (current) drug therapy; Z86.14 Personal history of Methicillin resistant Staphylococcus aureus infection; Z82.49 Family history of ischemic heart disease and other diseases of the circulatory system; G89.29 Other chronic pain; F17.210 Nicotine dependence, cigarettes, uncomplicated; F15.10 Other stimulant abuse, uncomplicated; F31.9 Bipolar disorder, unspecified; F41.1 Generalized anxiety disorder; E78.5 Hyperlipidemia, unspecified; F12.10 Cannabis abuse, uncomplicated; F14.10 Cocaine abuse, uncomplicated; G40.909 Epilepsy, unspecified, not intractable, without status epilepticus; F29 Unspecified psychosis not due to a substance or known physiological condition; I25.5 Ischemic cardiomyopathy; B19.20 Unspecified viral hepatitis C without hepatic coma; W57.XXXA Bitten or stung by nonvenomous insect and other nonvenomous arthropods, initial encounter; T14.8XXA Other injury of unspecified body region, initial encounter; R56.9 Unspecified convulsions
CPT/HCPCS: 36415; 71045; 71275; 76705; 80048; 80053; 80061; 80074; 80202; 80306; 82565; 83605; 83615; 83735; 84145; 84484; 85025; 85027; 85379; 85610; 85730; 86140; 87040; 87070; 87205; 87635; 93005; 93306; 93970; 94640; 94760; 96360; 99291